=== PATIENT | female | born 1970 | race Caucasian/White ===

== ENCOUNTER 2019-09-19 21:28 | Emergency (ER) | payer OTHER ==
[~2019-09-19] VITALS: Ht 165.1 cm; Wt 111.4 kg
[~2019-09-19 21:28] MED LIST: AMLO10TA4 PO; CARV6.25 PO; IBUP800T19 PO; LISI1TAB23 PO; NITR50IN IV; POTA20TA4 PO; RANI-376 PO
[2019-09-19] MEDS ORDERED: IV NORMAL SALINE 1,000ML 1,000 ML IV SCH (21:50)
--- NOTE | 2019-09-19 21:59 | PHYS DOC ---
Past History Past Medical History: CVA, Diabetes, Hypertension Past Surgical History: Tonsillectomy Alcohol Use: None Drug Use: None Adult General Chief Complaint Chief Complaint: DIZZY/LIGHT HEADED HPI HPI Patient is a 49-year-old female who presents with complaint of some dizziness today as well as palpitations. Patient states that she felt like her heart was beating out of her chest and one of the coworkers had checked her pulse and blood pressure and found that her pulse was 168. Blood pressure was also found to be elevated. Patient denies any actual chest pain but does state that it felt uncomfortable. She states that the palpitations have much resolved at this point. She does indicate that she still feels a little bit lightheaded however.[] Review of Systems Review of Systems Constitutional: Denies fever or chills [] Respiratory: Admits to cough without shortness of breath [] Cardiovascular: No additional information not addressed in HPI [] GI: Denies abdominal pain, nausea, vomiting or diarrhea [] Integument: Denies rash or skin lesions [] Neurologic: Denies headache, focal weakness or sensory changes [] All other systems were reviewed and found to be within normal limits, except as documented in this note. Current Medications Current Medications Current Medications Medications (Trade) Dose Ordered Sig/Javier Start Time Stop Time Status Last Admin Dose Admin Albuterol/ Ipratropium (Duoneb) 3 ml 1X ONCE 09/19/19 22:00 09/19/19 22:01 UNV Sodium Chloride 1,000 ml @ 1,000 mls/hr Q1H 09/19/19 21:50 09/19/19 22:49 UNV Allergies Allergies Allergies Coded Allergies Type Severity Reaction Last Updated Verified lisinopril Allergy Intermediate rash 08/20/16 Yes Physical Exam Physical Exam Constitutional: Well developed, well nourished, no acute distress, non-toxic appearance. [] HENT: Normocephalic, atraumatic, bilateral external ears normal, oropharynx moist, no oral exudates, nose normal. [] Eyes: PERRLA, EOMI, conjunctiva normal, no discharge. [] Neck: Normal range of motion, no tenderness, supple. [] Cardiovascular: Regular rate and rhythm[] Lungs & Thorax: Bilateral breath sounds clear to auscultation [] Abdomen: Bowel sounds normal, soft, no tenderness. [] Skin: Warm, dry, no erythema, no rash. [] Extremities: No tenderness, no cyanosis, no clubbing, ROM intact. [] Neurologic: Alert and oriented X 3, no focal deficits noted. [] Current Patient Data Vital Signs Vital Signs Date Time Temp Pulse Resp B/P (MAP) Pulse Ox O2 Delivery O2 Flow Rate FiO2 09/19/19 21:42 98.2 110 20 166/98 (120) 97 Room Air EKG EKG EKG demonstrates normal sinus rhythm with rate of 98.[] Radiology/Procedures Radiology/Procedures [] Impressions: PROCEDURE: PORTABLE CHEST 1V EXAM: CHEST 1 VIEW History: Palpitations, cough COMPARISON: 07/10/2015 TECHNIQUE: Single portable radiograph of the chest FINDINGS: The cardiac silhouette is unremarkable. The lungs are clear bilaterally. The costophrenic sulci are clear and well demarcated. IMPRESSION: No radiographic evidence of an acute cardiopulmonary process. Electronically signed by: Blaine Dorsey MD (09/19/2019 10:35 PM) [facility] Course & Med Decision Making Course & Med Decision Making Pertinent Labs and Imaging studies reviewed. (See chart for details) [] Dragon Disclaimer Dragon Disclaimer This electronic medical record was generated, in whole or in part, using a voice recognition dictation system. Departure Departure: Impression: Primary Impression: Dizziness Additional Impression: Hypomagnesemia Disposition: 01 HOME, SELF-CARE Condition: STABLE Referrals: ANGELIQUE PETERSON MD (PCP) Patient Instructions: Dizziness, Hypomagnesemia Problem Qualifiers JOHN PATTERSON Jr. DO Sep 19, 2019 21:59
[2019-09-19] MEDS ORDERED: IPRATRPIUM/ALBUTEROL 0.5/2.5MG 3 ML NEBU. NEB ONE (22:00)
[2019-09-19 22:18] LABS: BASO # 0.1 x10^3/uL (0.0-0.2); BASO % 1 % (0-3); EOS # 0.1 x10^3/uL (0.0-0.7); EOS % 1 % (0-3); HEMATOCRIT 47.4 % (36.0-47.0); HEMOGLOBIN 15.7 g/dL (12.0-15.5); LYMPH # 2.1 x10^3/uL (1.0-4.8); LYMPH % 20 % (24-48); MEAN CORPUSCULAR HEMOGLOBIN 32 pg (25-35); MEAN CORPUSCULAR HGB CONC 33 g/dL (31-37); MEAN CORPUSCULAR VOLUME 96 fL (79-100); MONO # 0.5 x10^3/uL (0.0-1.1); MONO % 5 % (0-9); NEUT # 7.5 x10^3uL (1.8-7.7); NEUT % 72 % (31-73); PLATELET COUNT 243 x10^3/uL (140-400); RED BLOOD COUNT 4.97 x10^6/uL (3.50-5.40); RED CELL DISTRIBUTION WIDTH 13.6 % (11.5-14.5); WHITE BLOOD COUNT 10.3 x10^3/uL (4.0-11.0)
[2019-09-19 22:24] LABS: CALCIUM 8.5 mg/dL (8.5-10.1); CREATININE 0.7 mg/dL (0.6-1.0); GFR 88.9; POTASSIUM 3.6 mmol/L (3.5-5.1)
[2019-09-19 22:36] LABS: ALBUMIN 3.4 g/dL (3.4-5.0); ALBUMIN/GLOBULIN RATIO 0.9 (1.0-1.7); MAGNESIUM 1.5 mg/dL (1.8-2.4); TOTAL BILIRUBIN 0.3 mg/dL (0.2-1.0); TOTAL PROTEIN 7.2 g/dL (6.4-8.2)
--- NOTE | 2019-09-19 22:38 | RAD ---
EXAM: CHEST 1 VIEW History: Palpitations, cough COMPARISON: 07/10/2015 TECHNIQUE: Single portable radiograph of the chest FINDINGS: The cardiac silhouette is unremarkable. The lungs are clear bilaterally. The costophrenic sulci are clear and well demarcated. IMPRESSION: No radiographic evidence of an acute cardiopulmonary process. Electronically signed by: Blaine Dorsey MD (09/19/2019 10:35 PM) [facility]
[2019-09-19] MEDS ORDERED: MAGNESIUM SULFATE 1GM 100 ML IV ONE (23:00)
[2019-09-19] MEDS ORDERED: MAGNESIUM OXIDE 400 MG TABLET PO ONE (23:30)
[2019-09-19 23:44] VITALS: BP 154/91
--- NOTE | 2019-09-21 18:31 | EKG ---
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
== END 2019-09-19 23:47 | disposition home or self-care (01) ==
LOC: ER 21:28
DX: R42 Dizziness and giddiness (principal); E83.42 Hypomagnesemia; I10 Essential (primary) hypertension; E11.9 Type 2 diabetes mellitus without complications; Z86.73 Personal history of transient ischemic attack (TIA), and cerebral infarction without residual deficits; Z88.8 Allergy status to other drugs, medicaments and biological substances
CPT/HCPCS: 36415; 71045; 80053; 83735; 83880; 84484; 85025; 93005; 94640; 96360; 96361; 99285; J7620; J7030

== ENCOUNTER 2019-10-24 18:21 | Emergency (ER) | payer OTHER ==
[~2019-10-24] VITALS: Ht 165.1 cm; Wt 110.7 kg
[2019-10-24] MEDS ORDERED: IPRATRPIUM/ALBUTEROL 0.5/2.5MG 3 ML NEBU. NEB ONE (20:00)
[2019-10-24] MEDS ORDERED: methylPREDNISolone SOD SUCC PF 125 MG/2 ML VIAL. IV ONE (20:00)
--- NOTE | 2019-10-24 20:01 | RAD ---
Exam: Chest 2 views INDICATION: Congestion, cough TECHNIQUE: Frontal and lateral views the chest Comparisons: 09/19/2019 FINDINGS: The cardiomediastinal silhouette and pulmonary vessels are within normal limits. The lung and pleural spaces are clear. IMPRESSION: No acute cardiopulmonary process. Electronically signed by: Miguel Herbert MD (10/24/2019 7:58 PM) [id number]
[2019-10-24] MEDS ORDERED: IV NORMAL SALINE 50ML 50 ML ONE (20:11)
[2019-10-24] MEDS ORDERED: cefTRIAXone SODIUM 1 GM VIAL ONE (20:12)
[2019-10-24 20:33] LABS: INFLUENZA A PATIENT NEGATIVE (NEGATIVE); INFLUENZA B PATIENT NEGATIVE (NEGATIVE)
[2019-10-24 20:34] LABS: BASO # 0.2 x10^3/uL (0.0-0.2); BASO % 2 % (0-3); EOS # 0.3 x10^3/uL (0.0-0.7); EOS % 4 % (0-3); HEMATOCRIT 45.7 % (36.0-47.0); HEMOGLOBIN 15.1 g/dL (12.0-15.5); LYMPH # 2.4 x10^3/uL (1.0-4.8); LYMPH % 24 % (24-48); MEAN CORPUSCULAR HEMOGLOBIN 32 pg (25-35); MEAN CORPUSCULAR HGB CONC 33 g/dL (31-37); MEAN CORPUSCULAR VOLUME 96 fL (79-100); MONO # 0.5 x10^3/uL (0.0-1.1); MONO % 5 % (0-9); NEUT # 6.6 x10^3uL (1.8-7.7); NEUT % 66 % (31-73); PLATELET COUNT 226 x10^3/uL (140-400); RED BLOOD COUNT 4.75 x10^6/uL (3.50-5.40); RED CELL DISTRIBUTION WIDTH 13.6 % (11.5-14.5); WHITE BLOOD COUNT 10.1 x10^3/uL (4.0-11.0)
[2019-10-24 20:44] LABS: CALCIUM 8.5 mg/dL (8.5-10.1); CREATININE 0.5 mg/dL (0.6-1.0); GFR 131.1; POTASSIUM 3.5 mmol/L (3.5-5.1)
[2019-10-24 20:50] LABS: ALBUMIN 3.1 g/dL (3.4-5.0); ALBUMIN/GLOBULIN RATIO 0.8 (1.0-1.7); MAGNESIUM 1.6 mg/dL (1.8-2.4); TOTAL BILIRUBIN 0.1 mg/dL (0.2-1.0)
[2019-10-24 22:00] VITALS: BP 138/76
[2019-10-24] MEDS ORDERED: MAGNESIUM SULFATE 2GM 50 ML IV ONE (22:00)
[2019-10-24] MEDS ORDERED: AZIT250T PO (22:16)
[2019-10-24] MEDS ORDERED: ALBU2.5V8 INH (22:16)
[2019-10-24] MEDS ORDERED: PRED20TA PO (22:16)
--- NOTE | 2019-10-24 22:17 | PHYS DOC ---
Past History Past Medical History: Asthma, CHF, COPD, CVA, Diabetes, Hypertension Additional Past Medical Histor: neuropathy Past Surgical History: Tonsillectomy Alcohol Use: Occasionally Drug Use: None Adult General Chief Complaint Chief Complaint: COUGH HPI HPI Patient is a 49-year-old female who presented to ER today for evaluation of cough, nasal congestion for about 4 days. Patient says she had been coughing so much that she could not sleep at home. Patient denies any productive sputum. Patient complaint of facial pain with nasal congestion. Patient denies any headache. Patient has history of COPD, she also complaint of trouble breathing and wheezing. Patient denies any chest pain. Patient denies any abdominal pain, no nausea vomiting. SHe felt like she has a fever, but did not check her temperature. Review of Systems Review of Systems Constitutional: Positive for fever and chills [] Eyes: Denies change in visual acuity, redness, or eye pain [] HENT: Denies nasal congestion or sore throat [] Respiratory: Positive for cough and shortness of breath [] Cardiovascular: No additional information not addressed in HPI [] GI: Denies abdominal pain, nausea, vomiting, bloody stools or diarrhea [] : Denies dysuria or hematuria [] Musculoskeletal: Denies back pain or joint pain [] Integument: Denies rash or skin lesions [] Neurologic: Denies headache, focal weakness or sensory changes [] Endocrine: Denies polyuria or polydipsia [] All other systems were reviewed and found to be within normal limits, except as documented in this note. Current Medications Current Medications Current Medications Medications (Trade) Dose Ordered Sig/[facility] Start Time Stop Time Status Last Admin Dose Admin Albuterol/ Ipratropium (Duoneb) 3 ml 1X ONCE 10/24/19 20:00 10/24/19 20:08 DC 10/24/19 20:21 3 ML Ceftriaxone Sodium 1 gm/ Sodium Chloride 50 ml @ 100 mls/hr 1X ONCE 10/24/19 20:00 10/24/19 20:29 DC 10/24/19 20:28 100 MLS/HR Ceftriaxone Sodium (Rocephin) 1 gm STK-MED ONCE 10/24/19 20:12 10/24/19 20:12 DC Magnesium Sulfate 50 ml @ 25 mls/hr 1X ONCE 10/24/19 22:00 10/24/19 23:59 10/24/19 21:54 25 MLS/HR Methylprednisolone Sodium Succinate (SOLU-Medrol 125MG VIAL) 125 mg 1X ONCE 10/24/19 20:00 10/24/19 20:08 DC 10/24/19 20:28 125 MG Sodium Chloride 50 ml @ As Directed STK-MED ONCE 10/24/19 20:11 10/24/19 20:12 DC Allergies Allergies Allergies Coded Allergies Type Severity Reaction Last Updated Verified lisinopril Allergy Intermediate rash 08/20/16 Yes Physical Exam Physical Exam Constitutional: Well developed, well nourished, no acute distress, non-toxic appearance. [] HENT: Normocephalic, atraumatic, bilateral external ears normal, oropharynx moist, no oral exudates, nose normal. [] Eyes: PERRLA, EOMI, conjunctiva normal, no discharge. [] Neck: Normal range of motion, no tenderness, supple, no stridor. [] Cardiovascular:Heart rate regular rhythm, no murmur [] Lungs & Thorax: Bilateral breath sounds clear to auscultation [] Abdomen: Bowel sounds normal, soft, no tenderness, no masses, no pulsatile masses. [] Skin: Warm, dry, no erythema, no rash. [] Back: No tenderness, no CVA tenderness. [] Extremities: No tenderness, no cyanosis, no clubbing, ROM intact, no edema. [] Neurologic: Alert and oriented X 3, normal motor function, normal sensory function, no focal deficits noted. [] Psychologic: Affect normal, judgement normal, mood normal. [] Current Patient Data Vital Signs Vital Signs Date Time Temp Pulse Resp B/P (MAP) Pulse Ox O2 Delivery O2 Flow Rate FiO2 10/24/19 20:22 94 Room Air 10/24/19 18:38 97.9 113 26 119/45 (69) Lab Results Laboratory Tests Test 10/24/19 18:57 10/24/19 20:18 Influenza Type A (Rapid) Negative (NEGATIVE) Influenza Type B (Rapid) Negative (NEGATIVE) White Blood Count 10.1 x10^3/uL (4.0-11.0) Red Blood Count 4.75 x10^6/uL (3.50-5.40) Hemoglobin 15.1 g/dL (12.0-15.5) Hematocrit 45.7 % (36.0-47.0) Mean Corpuscular Volume 96 fL (79-100) Mean Corpuscular Hemoglobin 32 pg (25-35) Mean Corpuscular Hemoglobin Concent 33 g/dL (31-37) Red Cell Distribution Width 13.6 % (11.5-14.5) Platelet Count 226 x10^3/uL (140-400) Neutrophils (%) (Auto) 66 % (31-73) Lymphocytes (%) (Auto) 24 % (24-48) Monocytes (%) (Auto) 5 % (0-9) Eosinophils (%) (Auto) 4 % (0-3) H Basophils (%) (Auto) 2 % (0-3) Neutrophils # (Auto) 6.6 x10^3uL (1.8-7.7) Lymphocytes # (Auto) 2.4 x10^3/uL (1.0-4.8) Monocytes # (Auto) 0.5 x10^3/uL (0.0-1.1) Eosinophils # (Auto) 0.3 x10^3/uL (0.0-0.7) Basophils # (Auto) 0.2 x10^3/uL (0.0-0.2) Sodium Level 141 mmol/L (136-145) Potassium Level 3.5 mmol/L (3.5-5.1) Chloride Level 104 mmol/L (98-107) Carbon Dioxide Level 24 mmol/L (21-32) Anion Gap 13 (6-14) Blood Urea Nitrogen 8 mg/dL (7-20) Creatinine 0.5 mg/dL (0.6-1.0) L Estimated GFR (Cockcroft-Gault) 131.1 BUN/Creatinine Ratio 16 (6-20) Glucose Level 181 mg/dL (70-99) H Calcium Level 8.5 mg/dL (8.5-10.1) Magnesium Level 1.6 mg/dL (1.8-2.4) L Total Bilirubin 0.1 mg/dL (0.2-1.0) L Aspartate Amino Transferase (AST) 36 U/L (15-37) Alanine Aminotransferase (ALT) 35 U/L (14-59) Alkaline Phosphatase 98 U/L (46-116) Total Protein 7.0 g/dL (6.4-8.2) Albumin 3.1 g/dL (3.4-5.0) L Albumin/Globulin Ratio 0.8 (1.0-1.7) L EKG EKG [] Radiology/Procedures Radiology/Procedures [][address] [address] IMAGING REPORT Signed PATIENT: OLIVER PEARSON AACCOUNT: [id number] : 1970 LOCATION: ER AGE: 49 SEX: F EXAM STATUS: REG ER ORD. PHYSICIAN: ANGELIQUE JUÁREZ DO REASON: Congestion, cough, chest discomfort PROCEDURE: CHEST PA & LATERAL Exam: Chest 2 views INDICATION: Congestion, cough TECHNIQUE: Frontal and lateral views the chest Comparisons: 09/19/2019 FINDINGS: The cardiomediastinal silhouette and pulmonary vessels are within normal limits. The lung and pleural spaces are clear. IMPRESSION: No acute cardiopulmonary process. Electronically signed by: Addi Becerra MD (10/24/2019 7:58 PM) [id number] DICTATED AND SIGNED BY: ADDI BECERRA MD DATE: 10/24/191957 CC: ANGELIQUE PETERSON MD; ANGELIQUE JUÁREZ DO ~ Course & Med Decision Making Course & Med Decision Making Pertinent Labs and Imaging studies reviewed. (See chart for details) [] Dragon Disclaimer Dragon Disclaimer This electronic medical record was generated, in whole or in part, using a voice recognition dictation system. Departure Departure: Impression: Primary Impression: Acute bronchitis Disposition: 01 HOME, SELF-CARE Condition: STABLE Referrals: ANGELIQUE PETERSON MD (PCP) FOLLOW UP WITH YOUR DOCTOR THIS WEEK. Patient Instructions: Acute Bronchitis Additional Instructions: Thank you for visiting our Emergency Department. We appreciate you trusting us with your care. If any additional problems come up don't hesitate to return to visit us. Please follow up with your primary care provider so they can plan additional care if needed and know about the problem that you had. If symptoms worsen come back to the Emergency Department. Any concerning symptoms that start such as chest pain, shortness of air, weakness or numbness on one side of the body, running high fevers or any other concerning symptoms return to the ER. Scripts Albuterol Sulfate (PROAIR HFA INHALER) 8.5 Gm Hfa.aer.ad 1 PUFF INH PRN Q6HRS PRN for SHORTNESS OF BREATH, #1 INHALER 0 Refills Prov: ANGELIQUE JUÁREZ DO 10/24/19 Prednisone (PREDNISONE) 20 Mg Tablet 1 TAB PO DAILY for BRONCHITIS, #7 TAB Prov: ANGELIQUE JUÁREZ DO 10/24/19 Azithromycin (ZITHROMAX) 250 Mg Tablet 1 PKG PO UD for BRONCHITIS, #6 TAB Prov: ANGELIQUE JUÁREZ DO 10/24/19 ANGELIQUE JUÁREZ DO Oct 24, 2019 22:17
== END 2019-10-24 22:20 | disposition home or self-care (01) ==
LOC: ER 18:21
DX: J20.9 Acute bronchitis, unspecified (principal); I11.0 Hypertensive heart disease with heart failure; I50.9 Heart failure, unspecified; J44.9 Chronic obstructive pulmonary disease, unspecified; E11.40 Type 2 diabetes mellitus with diabetic neuropathy, unspecified; Z86.73 Personal history of transient ischemic attack (TIA), and cerebral infarction without residual deficits; Z88.8 Allergy status to other drugs, medicaments and biological substances
CPT/HCPCS: 36415; 71046; 80053; 83735; 85025; 87804; 94640; 96365; 96367; 96375; 99284; J0696; J2930; J3475

== ENCOUNTER 2019-10-25 19:13 | Inpatient (IN) | payer OTHER ==
[~2019-10-25] VITALS: Ht 165.1 cm; Wt 111.9 kg
[~2019-10-25 19:13] MED LIST changes: +ALBU2.5V8 INH; +AZIT250T PO; +PRED20TA PO
[2019-10-25 19:43] VITALS: BP 122/67
[2019-10-25 20:30] VITALS: BP 122/67
[2019-10-25] MEDS ORDERED: ZOLPIDEM 5 MG TABLET. PO PRN (21:15)
[2019-10-25] MEDS ORDERED: MAG HYDROX/AL HYDROX/SIMETH 30 ML ORAL.SUSP PO PRN (21:15)
[2019-10-25] MEDS: IPRATRPIUM/ALBUTEROL 0.5/2.5MG 3 ML NEBU. NEB SCH (21:21)
[2019-10-25] MEDS ORDERED: DEXTROSE 50% 25 GM / 50ML DISP.SYRIN. IV PRN (21:45)
[2019-10-25 21:57] LABS: BASO % 0 % (0-3); EOS % 0 % (0-3); HEMOGLOBIN 14.1 g/dL (12.0-15.5); LYMPH # 1.3 x10^3/uL (1.0-4.8); LYMPH % 8 % (24-48); MEAN CORPUSCULAR HEMOGLOBIN 32 pg (25-35); MEAN CORPUSCULAR HGB CONC 33 g/dL (31-37); MEAN CORPUSCULAR VOLUME 97 fL (79-100); MONO # 0.8 x10^3/uL (0.0-1.1); MONO % 5 % (0-9); NEUT # 13.2 x10^3uL (1.8-7.7); NEUT % 86 % (31-73); PLATELET COUNT 260 x10^3/uL (140-400); RED BLOOD COUNT 4.42 x10^6/uL (3.50-5.40); WHITE BLOOD COUNT 15.4 x10^3/uL (4.0-11.0)
[2019-10-25] MEDS ORDERED: INSULIN LISPRO 300 UNITS/3 ML VIAL. SQ SCH (22:00)
[2019-10-25 22:06] LABS: ALBUMIN 3.2 g/dL (3.4-5.0); ALBUMIN/GLOBULIN RATIO 0.8 (1.0-1.7); CALCIUM 8.7 mg/dL (8.5-10.1); CREATININE 0.7 mg/dL (0.6-1.0); GFR 88.9; POTASSIUM 4.3 mmol/L (3.5-5.1); TOTAL BILIRUBIN 0.1 mg/dL (0.2-1.0)
[2019-10-25] MEDS: NICOTINE 21MG PATCH. TD SCH (22:11)
[2019-10-25] MEDS: ACETAMINOPHEN 325 MG TABLET PO PRN (22:18)
[2019-10-25 22:21] LABS: % LYMPHS 7 % (24-48); % MONOS 5 % (0-10); % SEGS 88 % (35-66); ANISOCYTOSIS SLIGHT; PLT ESTIMATE ADEQUATE (ADEQUATE); POLYCHROMASIA SLIGHT
[2019-10-25] MEDS ORDERED: ALBUTEROL SULFATE 2.5 MG/3 ML NEBU. INH PRN (22:45)
[2019-10-25] MEDS ORDERED: ALBUTEROL SULFATE 2.5 MG/3 ML NEBU. NEB PRN (23:00)
--- NOTE | 2019-10-25 23:22 | EKG ---
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
[2019-10-26] VITALS (9 sets, daily range): BP systolic 108–155; BP diastolic 67–84
[2019-10-26] MEDS: IPRATRPIUM/ALBUTEROL 0.5/2.5MG 3 ML NEBU. NEB SCH ×4 (05:41→22:41)
[2019-10-26 06:35] LABS: AMPHETAMINE/METHAMPHETAMINE NEG (NEG); BARBITURATES NEG (NEG); BENZODIAZEPINES NEG (NEG); CANNABINOIDS NEG (NEG); COCAINE NEG (NEG); METHADONE NEG (NEG); OPIATES NEG (NEG); PHENCYCLIDINE NEG (NEG)
[2019-10-26] MEDS ORDERED: IOHEXOL 350 MG/ML 100 ML VIAL. IV ONE (07:15)
[2019-10-26] MEDS ORDERED: CONTRAST GIVEN MC PRN (07:30)
[2019-10-26 08:21] LABS: BACTERIA,URINE FEW /HPF (0-FEW); BILIRUBIN,URINE NEG (NEG); CLARITY,URINE CLOUDY; COLOR,URINE YELLOW; GLUCOSE,URINE >=1000 mg/dL (NEG); NITRITE,URINE NEG (NEG); RBC,URINE >40 /HPF (0-2); UROBILINOGEN,URINE 0.2 mg/dL (0.2 mg/dL)
[2019-10-26 08:22] LABS: SQUAMOUS EPITHELIAL CELL,UR FEW /LPF
[2019-10-26] MEDS: predniSONE 20 MG TABLET PO SCH (08:29)
[2019-10-26] MEDS: FAMOTIDINE 20 MG TABLET PO SCH ×2 (08:29→19:54)
[2019-10-26] MEDS: CARVEDILOL 12.5 MG TABLET PO SCH ×2 (08:29→17:00)
[2019-10-26] MEDS: AZITHROMYCIN 250 MG TABLET. PO SCH (08:30)
[2019-10-26] MEDS: hydroCHLOROthiazide 12.5 MG CAPSULE PO SCH (08:30)
[2019-10-26] MEDS: NICOTINE 21MG PATCH. TD SCH (08:30)
[2019-10-26] MEDS: POTASSIUM CHLORIDE 20 MEQ TABLET.ER. PO SCH (08:30)
[2019-10-26] MEDS: amLODIPine BESYLATE 10 MG TABLET PO SCH (08:33)
[2019-10-26] MEDS: INSULIN LISPRO 300 UNITS/3 ML VIAL. SQ SCH ×4 (08:33→21:58)
[2019-10-26] MEDS: LISINOPRIL 10 MG TABLET PO SCH (08:33)
--- NOTE | 2019-10-26 09:07 | RAD ---
CT Angio chest 10/26/2019 5:00 AM Indication: Respiratory distress Technique: Multiple contiguous axial images were obtained through the chest after administration of intravenous iodinated contrast. Coronal, sagittal, and 3-D MIP reformations were created. Comparison: Chest radiograph October 24, 2019 Findings: There is no filling defect within central pulmonary arteries or evidence of acute pulmonary embolism. Heart size is normal. No pericardial effusion is appreciated. No pathologically enlarged mediastinal lymph nodes are seen. . The thoracic aorta is grossly normal in course and contour. There is no pneumothorax or pleural effusion. There are mild patchy groundglass infiltrates, most prominently in the left upper lobe, but also to a lesser degree in the right upper lobe. This could represent a mild or atypical, versus nonspecific pneumonitis. Limited visualization of the upper abdomen demonstrates no acute abnormality. No acute osseous abnormalities are appreciated. Impression: 1.No evidence of acute pulmonary embolism 2 .Mild patchy groundglass infiltrates, most prominently in the left upper lobe, but also to a lesser degree in the right upper lobe. This could represent a mild or atypical, versus nonspecific pneumonitis CT DOSING PQRS STATEMENT: One or more of the following individualized dose reduction techniques were utilized for this examination: 1. Automated exposure control 2. Adjustment of the mA and/or kV according to patient size 3. Use of iterative reconstruction technique Electronically signed by: Andrew Tomas MD (10/26/2019 9:04 AM) [place] [address]
[2019-10-26] MEDS ORDERED: SODIUM CHL/ALOE VERA NASAL GEL 14.1GM TUBE. NS PRN (09:45)
[2019-10-26] MEDS ORDERED: PIP/TAZO PER PHARMACY MC PRN (09:45)
[2019-10-26] MEDS ORDERED: IV 1/2 NORMAL SALINE 1,000 ML IV PRN (10:00)
[2019-10-26] MEDS ORDERED: MVI, ADULT NO.4 WITH VIT K 10 ML, FOLIC ACID INJ 1 MG, THIAMINE INJ 100 MG in IV NORMAL... IV ONE ×4 (10:00)
[2019-10-26 10:17] LABS: BASO # 0.1 x10^3/uL (0.0-0.2); BASO % 1 % (0-3); EOS % 0 % (0-3); HEMATOCRIT 43.1 % (36.0-47.0); HEMOGLOBIN 14.1 g/dL (12.0-15.5); LYMPH # 2.2 x10^3/uL (1.0-4.8); LYMPH % 16 % (24-48); MEAN CORPUSCULAR HEMOGLOBIN 32 pg (25-35); MEAN CORPUSCULAR HGB CONC 33 g/dL (31-37); MEAN CORPUSCULAR VOLUME 96 fL (79-100); MONO # 0.9 x10^3/uL (0.0-1.1); MONO % 6 % (0-9); NEUT # 10.8 x10^3uL (1.8-7.7); NEUT % 77 % (31-73); PLATELET COUNT 234 x10^3/uL (140-400); RED BLOOD COUNT 4.48 x10^6/uL (3.50-5.40); RED CELL DISTRIBUTION WIDTH 13.6 % (11.5-14.5)
[2019-10-26 10:21] LABS: CREATININE 0.7 mg/dL (0.6-1.0); GFR 88.9
--- NOTE | 2019-10-26 10:56 | HP ---
ADMIT DATE: 10/25/2019 HISTORY OF PRESENT ILLNESS: A 49-year-old female, increased shortness of breath, respiratory failure, and hemoptysis. The patient was noted to be coughing up blood. She was admitted to the hospital. She had increased shortness of breath and wheezing throughout. She became increasingly worse over the last week or two and making further challenges to her breathing. She was using some accessory muscles as well. She had an elevated white count of 15,000. She had already been to the Emergency Room one time and apparently was sent home. In any case, the patient was admitted for acute respiratory failure; pneumonia of unspecified etiology; type 2 diabetes, poorly controlled; morbid obesity; hematuria and epistaxis. PAST MEDICAL HISTORY: Includes that of congestive heart failure, hypertension, COPD, sleep apnea, GERD, hematuria, urination urgency. IMMUNIZATION: Tetanus and vaccinations are up-to-date. 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 FAMILY HISTORY: Obesity, hypertension, diabetes, depression, cardiovascular disease, angina, and sleep apnea. ALLERGIES: The patient has no known allergies herself. SOCIAL HISTORY: Apparently does drink fairly heavily from time to time and occasional smoking probably about a half pack a day. MEDICATIONS: The patient's medications. She has already been on azithromycin, ProAir inhaler, Coreg, amlodipine 10, lisinopril/HCTZ, ibuprofen 800, potassium chloride, ranitidine 115, prednisone 20. REVIEW OF SYSTEMS: As noted, the patient has marked flushing to the face. She has increased shortness of breath, increased pain within the chest itself in terms of breathing. She has difficulty getting her air. The patient otherwise notes she has had some blood in her urine and epistaxis as well as coughing up blood. The patient also had some nausea and vomiting. The patient has diffuse abdominal pain and left flank pain. The patient otherwise denies any melena, hematochezia, hematemesis except as otherwise noted above. Neurologically baseline. PHYSICAL EXAMINATION: GENERAL: This is a very pleasant white female looking very ill, morbidly obese. VITAL SIGNS: Blood pressure 120/70, respiratory rate 20, pulse 120, afebrile, room air 91%, desaturates down in the low 80s when moving, however. HEENT: The patient's head was atraumatic, normocephalic except for a markedly sheridan appearance throughout almost like carbon monoxide javier like coloring to the face. The patient's mouth and throat shows some blood down the back of the throat. NECK: Supple without JVD, carotid bruits or thyromegaly. LUNGS: Diminished throughout with wheezing in all 5 lobes, poor movement of air. CARDIOVASCULAR: Tachycardic. ABDOMEN: Soft, protuberant. Definite tenderness in the left lower quadrant area, but no rebounding, no guarding. GENITOURINARY: Normal female genitalia. EXTREMITIES: Without clubbing, cyanosis, nor edema. NEUROLOGIC: The patient is alert and oriented x 3. Speech fluent, spontaneous, appropriate. Cranial nerves 2-12 are grossly intact. EKG shows sinus tachycardia, rate of 115, T-wave abnormalities no longer evident. A CT of the chest shows ground glass infiltrates in the left upper, also right upper lobe, possible atypical pneumonia versus nonspecific pneumonitis. The patient otherwise showed no pulmonary emboli to recognize that sinus tachycardia. LABORATORY DATA: White count was 15,000, no left shift. Lactic acid is pending. Blood sugar 360. Coags stable. Positive for alcohol. Urine shows spilling ___ glucose and greater than 40 rbc's, 5-10 whites. 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 IMPRESSION: Acute respiratory failure, severe type 2 diabetes, poorly controlled; morbid obesity, pneumonia of unspecified etiology in two lobes, acute exacerbation of asthma, history of alcohol abuse, dehydration, epistaxis, nausea, vomiting. 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 We will get an echocardiogram, check her thyroid. EKG just shows a some straight sinus tachycardia, otherwise the patient is acutely ill and requires IV fluids, antibiotics and aggressive pulmonary toilet. It is noted she failed outpatient therapy. She had been to the Emergency Room and was discharged. It got progressively worse. ANGELIQUE PETERSON MD DR: MANINDER/mona JOB#: [id number] / [id number]
--- NOTE | 2019-10-26 11:00 | RAD ---
PQRS Compliance Statement: One or more of the following individualized dose reduction techniques were utilized for this examination: 1. Automated exposure control 2. Adjustment of the mA and/or kV according to patient size 3. Use of iterative reconstruction technique CT ABDOMEN PELVIS WO CONTRAST Clinical Indication: Hematuria. Comparison: CT chest with contrast, earlier same day. Technique: Helical CT imaging of the abdomen and pelvis is performed without IV or oral contrast. Findings: Evaluation of solid organs and bowel is limited without oral and IV contrast, decreasing sensitivity for detection of pathology. Minimal atelectasis or scarring in the right middle lobe and inferior lingula. Cardiac size normal. Hepatomegaly. Gallbladder, spleen, pancreas, adrenal glands, and abdominal aorta are normal. There is IV contrast in the collecting system and urinary bladder from earlier same day CT. This decreases sensitivity for detection of renal calculi. There is no hydronephrosis. No focal abnormality of the ureters is seen. Stomach unremarkable. No dilated small bowel. There is distal colon diverticulosis. No colon wall thickening is seen. The appendix is normal. No abdominal adenopathy or free fluid. There is no pelvic free fluid. Urinary bladder is normal. Anteverted uterus. There is small amount of hyperdense material or fluid in the vagina. This hyperdense material is similar in density to the intravenous contrast in the urinary bladder. Degenerative spondylosis of L5/S1. Left osteitis condensans ilii. IMPRESSION: 1. No CT explanation for patient's hematuria. There is no hydronephrosis. The urinary bladder is normal. 2. There is IV contrast in the collecting system and urinary bladder from earlier same day CT. There is hyperdense material or fluid in the vagina. Recommend correlation to whether this could be due to urinary contamination or unrelated hyperdense material. If no plausible explanation, a vesicovaginal fistula cannot be excluded. 3. Hepatomegaly. 4. Distal colon diverticulosis. Electronically signed by: Bert Tang MD (10/26/2019 10:58 AM) [id number]
[2019-10-26] MEDS: PIPERACILLIN/TAZOBACTAM 4.5 GM in IV NORMAL SALINE 50ML 50 ML IV SCH ×2 (11:25→17:44)
[2019-10-26] MEDS ORDERED: VANCOMYCIN 2 GM in IV NORMAL SALINE 500ML 500 ML IV ONE (11:30)
[2019-10-26] MEDS: ACETAMINOPHEN 325 MG TABLET PO PRN (11:30)
[2019-10-26] MEDS: VANCOMYCIN PER PHARMACY MC PRN (12:25)
[2019-10-26 15:37] LABS: INFLUENZA A PATIENT NEGATIVE (NEGATIVE); INFLUENZA B PATIENT NEGATIVE (NEGATIVE)
[2019-10-26] MEDS: ZOLPIDEM 5 MG TABLET. PO PRN (19:54)
[2019-10-26] MEDS: VANCOMYCIN 1.5 GM in IV NORMAL SALINE 500ML 500 ML IV SCH (19:54)
[2019-10-26] MEDS ORDERED: INSULIN LISPRO 300 UNITS/3 ML VIAL. SQ SCH (21:45)
[2019-10-27] MEDS: PIPERACILLIN/TAZOBACTAM 4.5 GM in IV NORMAL SALINE 50ML 50 ML IV SCH ×3 (01:54→18:45)
[2019-10-27] MEDS: VANCOMYCIN 1.5 GM in IV NORMAL SALINE 500ML 500 ML IV SCH ×3 (04:11→21:02)
[2019-10-27 05:26] VITALS: BP 154/88
[2019-10-27] MEDS: IPRATRPIUM/ALBUTEROL 0.5/2.5MG 3 ML NEBU. NEB SCH ×4 (05:29→21:01)
[2019-10-27 06:00] LABS: BASO # 0.1 x10^3/uL (0.0-0.2); BASO % 1 % (0-3); EOS # 0.1 x10^3/uL (0.0-0.7); EOS % 1 % (0-3); HEMATOCRIT 41.1 % (36.0-47.0); HEMOGLOBIN 13.5 g/dL (12.0-15.5); LYMPH # 2.6 x10^3/uL (1.0-4.8); LYMPH % 26 % (24-48); MEAN CORPUSCULAR HEMOGLOBIN 32 pg (25-35); MEAN CORPUSCULAR HGB CONC 33 g/dL (31-37); MEAN CORPUSCULAR VOLUME 97 fL (79-100); MONO # 0.7 x10^3/uL (0.0-1.1); MONO % 7 % (0-9); NEUT # 6.7 x10^3uL (1.8-7.7); NEUT % 66 % (31-73); PLATELET COUNT 200 x10^3/uL (140-400); RED BLOOD COUNT 4.24 x10^6/uL (3.50-5.40); RED CELL DISTRIBUTION WIDTH 13.4 % (11.5-14.5); WHITE BLOOD COUNT 10.1 x10^3/uL (4.0-11.0)
[2019-10-27 06:09] LABS: CALCIUM 8.3 mg/dL (8.5-10.1); CREATININE 0.7 mg/dL (0.6-1.0); GFR 88.9; POTASSIUM 3.8 mmol/L (3.5-5.1)
[2019-10-27] MEDS: hydroCHLOROthiazide 12.5 MG CAPSULE PO SCH (08:26)
[2019-10-27] MEDS: FAMOTIDINE 20 MG TABLET PO SCH ×2 (08:26→21:03)
[2019-10-27] MEDS: LISINOPRIL 10 MG TABLET PO SCH (08:27)
[2019-10-27] MEDS: AZITHROMYCIN 250 MG TABLET. PO SCH (08:27)
[2019-10-27] MEDS: POTASSIUM CHLORIDE 20 MEQ TABLET.ER. PO SCH (08:27)
[2019-10-27] MEDS: predniSONE 20 MG TABLET PO SCH (08:27)
[2019-10-27] MEDS: ACETAMINOPHEN 325 MG TABLET PO PRN ×2 (08:27→18:45)
[2019-10-27] MEDS: CARVEDILOL 12.5 MG TABLET PO SCH ×2 (08:28→18:46)
[2019-10-27] MEDS: amLODIPine BESYLATE 10 MG TABLET PO SCH (08:28)
[2019-10-27] MEDS: NICOTINE 21MG PATCH. TD SCH (08:28)
[2019-10-27] MEDS: INSULIN LISPRO 300 UNITS/3 ML VIAL. SQ SCH ×4 (08:33→21:00)
[2019-10-27] MEDS ORDERED: INSULIN LISPRO 300 UNITS/3 ML VIAL. SQ ONE (09:30)
[2019-10-27] MEDS ORDERED: SODIUM CHL/ALOE VERA NASAL GEL 14.1GM TUBE. NS PRN (09:30)
[2019-10-27] MEDS: guaiFENesin DM 200MG/20MG 10 ML SYRUP PO PRN ×2 (09:53→18:45)
[2019-10-27] MEDS: INSULIN GLARGINE SYRINGE. SQ SCH ×2 (09:58→20:57)
[2019-10-27 11:00] VITALS: BP 118/59
[2019-10-27 11:41] LABS: VANC TR 17.3 mcg/mL (10.0-20.0)
[2019-10-27 14:40] VITALS: BP 108/59
[2019-10-27] MEDS: methylPREDNISolone SOD SUCC PF 40 MG/ML VIAL. IV SCH ×2 (15:04→21:03)
[2019-10-27 20:22] VITALS: BP 135/80
[2019-10-27] MEDS: ATORVASTATIN CALCIUM 20 MG TABLET PO SCH (21:03)
[2019-10-27 22:48] VITALS: BP 119/66
--- NOTE | 2019-10-27 23:14 | PN ---
DATE: SUBJECTIVE: A 49-year-old female in with acute respiratory failure and pneumonia. The patient has been having severe coughing spasms. She also has epistaxis and a tampon has been placed inside her left naris to help see if that will stop the bleeding, which seems to be a problem for this young lady. OBJECTIVE: VITAL SIGNS: Blood pressure 119/60, respiratory rate 20, pulse 70, afebrile. GENERAL: The patient is alert and oriented. LUNGS: Much improved, but still coarse breath sounds throughout with wheezing. CARDIOVASCULAR: Regular sinus rhythm. ABDOMEN: Soft, nontender. EXTREMITIES: No clubbing, cyanosis, nor edema. NEUROLOGIC: Intact. IMPRESSION: Acute respiratory failure, pneumonia of unspecified etiology, along with that of epistaxis, bronchospasm, morbid obesity, type 2 diabetes, exacerbation of asthma, history of alcohol abuse. PLAN: Continue with antibiotics, monitor that nosebleed and continue to be aggressive with her therapy. ANGELIQUE PETERSON MD DR: MANINDER/mona JOB#: [id number] / [id number]
[2019-10-28] MEDS: guaiFENesin DM 200MG/20MG 10 ML SYRUP PO PRN ×2 (03:09→09:28)
[2019-10-28] MEDS: PIPERACILLIN/TAZOBACTAM 4.5 GM in IV NORMAL SALINE 50ML 50 ML IV SCH ×3 (03:28→21:00)
[2019-10-28] MEDS: methylPREDNISolone SOD SUCC PF 40 MG/ML VIAL. IV SCH ×2 (04:59→21:00)
[2019-10-28] MEDS: VANCOMYCIN 1.5 GM in IV NORMAL SALINE 500ML 500 ML IV SCH ×4 (05:00→17:36)
[2019-10-28 05:31] VITALS: BP 163/73
[2019-10-28] MEDS: IPRATRPIUM/ALBUTEROL 0.5/2.5MG 3 ML NEBU. NEB SCH ×4 (05:43→21:58)
[2019-10-28 06:12] LABS: BASO % 0 % (0-3); EOS % 0 % (0-3); HEMATOCRIT 41.5 % (36.0-47.0); HEMOGLOBIN 13.8 g/dL (12.0-15.5); LYMPH % 10 % (24-48); MEAN CORPUSCULAR HEMOGLOBIN 32 pg (25-35); MEAN CORPUSCULAR HGB CONC 33 g/dL (31-37); MEAN CORPUSCULAR VOLUME 95 fL (79-100); MONO # 0.2 x10^3/uL (0.0-1.1); MONO % 2 % (0-9); NEUT # 9.5 x10^3uL (1.8-7.7); NEUT % 88 % (31-73); PLATELET COUNT 195 x10^3/uL (140-400); RED BLOOD COUNT 4.35 x10^6/uL (3.50-5.40); RED CELL DISTRIBUTION WIDTH 13.2 % (11.5-14.5); WHITE BLOOD COUNT 10.7 x10^3/uL (4.0-11.0)
[2019-10-28 06:19] LABS: CALCIUM 8.8 mg/dL (8.5-10.1); CREATININE 0.7 mg/dL (0.6-1.0); GFR 88.9
[2019-10-28] MEDS: predniSONE 20 MG TABLET PO SCH (08:30)
[2019-10-28] MEDS: FAMOTIDINE 20 MG TABLET PO SCH ×2 (08:30→21:00)
[2019-10-28] MEDS: hydroCHLOROthiazide 12.5 MG CAPSULE PO SCH (08:30)
[2019-10-28] MEDS: POTASSIUM CHLORIDE 20 MEQ TABLET.ER. PO SCH (08:30)
[2019-10-28] MEDS: CARVEDILOL 12.5 MG TABLET PO SCH ×2 (08:31→17:09)
[2019-10-28] MEDS: LISINOPRIL 10 MG TABLET PO SCH (08:31)
[2019-10-28] MEDS: amLODIPine BESYLATE 10 MG TABLET PO SCH (08:31)
[2019-10-28] MEDS: NICOTINE 21MG PATCH. TD SCH (08:32)
[2019-10-28] MEDS: INSULIN LISPRO 300 UNITS/3 ML VIAL. SQ SCH ×4 (08:37→21:00)
[2019-10-28] MEDS: INSULIN GLARGINE SYRINGE. SQ SCH ×2 (08:46→21:05)
[2019-10-28 10:44] VITALS: BP 137/75
[2019-10-28] MEDS ORDERED: GABA600T7 PO (11:28)
[2019-10-28] MEDS ORDERED: chlordiazePOXIDE HCL 25 MG CAPSULE PO PRN ×2 (11:45)
[2019-10-28] MEDS ORDERED: LORazepam 1 MG TABLET PO PRN ×4 (11:45)
[2019-10-28 11:46] LABS: VANC TR 28.7 mcg/mL (10.0-20.0)
[2019-10-28] MEDS: LORazepam 1 MG TABLET PO PRN (12:28)
[2019-10-28 15:04] VITALS: BP 134/77
[2019-10-28] MEDS: VANCOMYCIN PER PHARMACY MC PRN (16:42)
[2019-10-28] MEDS ORDERED: diphenhydrAMINE 50 MG/ML VIAL IVP ONE (18:00)
[2019-10-28 19:30] VITALS: BP 119/69
[2019-10-28] MEDS ORDERED: INSULIN LISPRO 300 UNITS/3 ML VIAL. SQ SCH (20:15)
[2019-10-28] MEDS: ZOLPIDEM 5 MG TABLET. PO PRN (21:00)
[2019-10-28] MEDS: ATORVASTATIN CALCIUM 20 MG TABLET PO SCH (21:00)
[2019-10-28] MEDS ORDERED: INSULIN LISPRO 300 UNITS/3 ML VIAL. SQ ONE (21:15)
--- NOTE | 2019-10-28 22:42 | PN ---
DATE: SUBJECTIVE: A 49-year-old female in with pneumonia of unspecified etiology, sepsis, possible alcohol withdrawal, DTs. The patient started on the blood in the urine. CT scan was entirely clear with possible cause. We will go ahead and continue to monitor the patient accordingly. Otherwise, she is somewhat improved, but still wheezing through all 5 lobes. OBJECTIVE: VITAL SIGNS: Blood pressure 134/77, respiratory rate 20, pulse 70, afebrile. GENERAL: The patient is alert and oriented. LUNGS: Show expiratory wheezes like throughout all 5 lobes. CARDIOVASCULAR: Regular sinus rhythm. ABDOMEN: Soft, nontender. EXTREMITIES: The patient is still somewhat flushed. PLAN: We will continue to monitor the patient on these multiple medical issues. Continue with IV antibiotic therapy, aggressive pulmonary toilet. Her white count has come down as well. Her diabetes is under better control as we attempt to increase her long-acting although she is on steroids. We were decreasing that tapering her off that as well. IMPRESSION: Pneumonia of unspecified etiology, acute respiratory failure, pneumonia along with epistaxis that has stopped, bronchospasm, deep breathing treatments, morbid obesity, type 2 diabetes, sliding scale with the insulin, exacerbation of asthma, history of alcohol abuse. ANGELIQUE PETERSON MD DR: MANINDER/mona JOB#: [id number] / [id number]
[2019-10-28 23:17] VITALS: BP 153/88
[2019-10-29] MEDS: VANCOMYCIN 1.5 GM in IV NORMAL SALINE 500ML 500 ML IV SCH ×2 (01:29→11:35)
[2019-10-29] MEDS: PIPERACILLIN/TAZOBACTAM 4.5 GM in IV NORMAL SALINE 50ML 50 ML IV SCH ×3 (04:45→20:52)
[2019-10-29] MEDS: IPRATRPIUM/ALBUTEROL 0.5/2.5MG 3 ML NEBU. NEB SCH ×4 (04:53→21:42)
[2019-10-29] MEDS: guaiFENesin DM 200MG/20MG 10 ML SYRUP PO PRN ×3 (05:29→20:51)
[2019-10-29 05:51] VITALS: BP 154/92
[2019-10-29] MEDS: hydroCHLOROthiazide 12.5 MG CAPSULE PO SCH (08:45)
[2019-10-29] MEDS: LISINOPRIL 10 MG TABLET PO SCH (08:46)
[2019-10-29] MEDS: CARVEDILOL 12.5 MG TABLET PO SCH ×2 (08:46→17:59)
[2019-10-29] MEDS: FAMOTIDINE 20 MG TABLET PO SCH ×2 (08:46→20:51)
[2019-10-29] MEDS: amLODIPine BESYLATE 10 MG TABLET PO SCH (08:46)
[2019-10-29] MEDS: methylPREDNISolone SOD SUCC PF 40 MG/ML VIAL. IV SCH ×2 (08:47→20:50)
[2019-10-29] MEDS: NICOTINE 21MG PATCH. TD SCH (08:47)
[2019-10-29] MEDS: INSULIN LISPRO 300 UNITS/3 ML VIAL. SQ SCH ×4 (08:49→21:03)
[2019-10-29] MEDS: INSULIN GLARGINE SYRINGE. SQ SCH ×2 (08:57→21:04)
[2019-10-29] MEDS: POTASSIUM CHLORIDE 20 MEQ TABLET.ER. PO SCH (08:58)
[2019-10-29 09:01] LABS: BASO % 0 % (0-3); EOS % 0 % (0-3); HEMATOCRIT 42.6 % (36.0-47.0); HEMOGLOBIN 14.2 g/dL (12.0-15.5); LYMPH # 1.2 x10^3/uL (1.0-4.8); LYMPH % 8 % (24-48); MEAN CORPUSCULAR HEMOGLOBIN 32 pg (25-35); MEAN CORPUSCULAR HGB CONC 33 g/dL (31-37); MEAN CORPUSCULAR VOLUME 95 fL (79-100); MONO # 0.7 x10^3/uL (0.0-1.1); MONO % 5 % (0-9); NEUT # 12.4 x10^3uL (1.8-7.7); NEUT % 87 % (31-73); PLATELET COUNT 219 x10^3/uL (140-400); RED BLOOD COUNT 4.47 x10^6/uL (3.50-5.40); RED CELL DISTRIBUTION WIDTH 13.1 % (11.5-14.5); WHITE BLOOD COUNT 14.3 x10^3/uL (4.0-11.0)
[2019-10-29 09:30] LABS: CALCIUM 8.8 mg/dL (8.5-10.1); CREATININE 0.8 mg/dL (0.6-1.0); GFR 76.2; POTASSIUM 3.7 mmol/L (3.5-5.1)
[2019-10-29 09:36] LABS: VANC TR 16.3 mcg/mL (10.0-20.0)
[2019-10-29 11:22] VITALS: BP 148/73
[2019-10-29] MEDS: LORazepam 1 MG TABLET PO PRN ×2 (12:44→20:51)
[2019-10-29] MEDS: VANCOMYCIN PER PHARMACY MC PRN (14:14)
[2019-10-29 15:00] VITALS: BP 134/75
[2019-10-29 15:35] LABS: % ATYL 2 % (0-0); % LYMPHS 9 % (24-48); % MONOS 1 % (0-10); % SEGS 88 % (35-66)
[2019-10-29 15:36] LABS: PLT ESTIMATE ADEQUATE (ADEQUATE)
[2019-10-29 19:49] VITALS: BP 143/73
[2019-10-29] MEDS: ATORVASTATIN CALCIUM 20 MG TABLET PO SCH (20:51)
[2019-10-29] MEDS: ZOLPIDEM 5 MG TABLET. PO PRN (20:51)
[2019-10-29 22:58] VITALS: BP 136/76
[2019-10-30] MEDS: PIPERACILLIN/TAZOBACTAM 4.5 GM in IV NORMAL SALINE 50ML 50 ML IV SCH (04:44)
[2019-10-30] MEDS: IPRATRPIUM/ALBUTEROL 0.5/2.5MG 3 ML NEBU. NEB SCH ×2 (04:54→09:20)
[2019-10-30 05:15] VITALS: BP 135/81
[2019-10-30 06:48] LABS: BASO # 0.1 x10^3/uL (0.0-0.2); BASO % 1 % (0-3); EOS % 0 % (0-3); HEMATOCRIT 41.7 % (36.0-47.0); HEMOGLOBIN 14.1 g/dL (12.0-15.5); LYMPH # 1.3 x10^3/uL (1.0-4.8); LYMPH % 9 % (24-48); MEAN CORPUSCULAR HEMOGLOBIN 32 pg (25-35); MEAN CORPUSCULAR HGB CONC 34 g/dL (31-37); MEAN CORPUSCULAR VOLUME 94 fL (79-100); MONO # 0.5 x10^3/uL (0.0-1.1); MONO % 4 % (0-9); NEUT # 12.4 x10^3uL (1.8-7.7); NEUT % 87 % (31-73); PLATELET COUNT 211 x10^3/uL (140-400); RED BLOOD COUNT 4.42 x10^6/uL (3.50-5.40); RED CELL DISTRIBUTION WIDTH 13.1 % (11.5-14.5); WHITE BLOOD COUNT 14.3 x10^3/uL (4.0-11.0)
--- NOTE | 2019-10-30 06:48 | PN ---
DATE: SUBJECTIVE: The patient is in with acute respiratory failure, pneumonia, bilateral. The patient is making some progress overall, but still having problems with generalized wheezing, although improved. She is still wheezing, still gets short of breath with exertion. OBJECTIVE: VITAL SIGNS: Blood pressure 134/75, respiratory rate 20, pulse 71, afebrile. GENERAL: The patient is alert and oriented x 3, feels better overall. LUNGS: Diminished throughout with expiratory wheezes noted. NEUROLOGIC: The patient is alert and oriented. White count up to 14, but probably related to steroids. CARDIOVASCULAR: Stable. ABDOMEN: Soft. EXTREMITIES: No clubbing, cyanosis or edema. NEUROLOGIC: Baseline and very pleasant young lady. IMPRESSION: Pneumonia of unspecified etiology, acute respiratory failure, pneumonia along with epistaxis that has stopped, bronchospasm, deep breathing treatments, morbid obesity, type 2 diabetes, sliding scale with insulin. The patient continues to be monitored carefully and we will make further evaluation on her as indicated. ANGELIQUE PETERSON MD DR: MANINDER/mona JOB#: [id number] / [id number]
[2019-10-30 07:00] LABS: CALCIUM 8.6 mg/dL (8.5-10.1); CREATININE 0.8 mg/dL (0.6-1.0); GFR 76.2; POTASSIUM 3.8 mmol/L (3.5-5.1)
[2019-10-30] MEDS: methylPREDNISolone SOD SUCC PF 40 MG/ML VIAL. IV SCH (08:55)
[2019-10-30] MEDS: hydroCHLOROthiazide 12.5 MG CAPSULE PO SCH (08:55)
[2019-10-30] MEDS: amLODIPine BESYLATE 10 MG TABLET PO SCH (08:56)
[2019-10-30] MEDS: FAMOTIDINE 20 MG TABLET PO SCH (08:56)
[2019-10-30] MEDS: LISINOPRIL 10 MG TABLET PO SCH (08:56)
[2019-10-30] MEDS: INSULIN GLARGINE SYRINGE. SQ SCH (08:58)
[2019-10-30] MEDS: INSULIN LISPRO 300 UNITS/3 ML VIAL. SQ SCH ×2 (08:58→11:30)
[2019-10-30] MEDS: NICOTINE 21MG PATCH. TD SCH (08:58)
[2019-10-30] MEDS ORDERED: VANCOMYCIN 1.5 GM in IV NORMAL SALINE 500ML 500 ML IV SCH (09:00)
[2019-10-30] MEDS: CARVEDILOL 12.5 MG TABLET PO SCH (09:05)
[2019-10-30] MEDS: POTASSIUM CHLORIDE 20 MEQ TABLET.ER. PO SCH (09:05)
[2019-10-30] MEDS ORDERED: INSU100I11 SQ (11:26)
[2019-10-30] MEDS ORDERED: PRED20TA PO (11:26)
[2019-10-30 11:51] VITALS: BP 146/88
== END 2019-10-30 12:23 | disposition home or self-care (01) | DRG 871 ==
LOC: 1 SOUTH 19:13
PROVIDERS: ADMIT Family Medicine; ATTEND Family Medicine
DX: A41.9 Sepsis, unspecified organism (principal); J18.9 Pneumonia, unspecified organism; J96.00 Acute respiratory failure, unspecified whether with hypoxia or hypercapnia; J45.901 Unspecified asthma with (acute) exacerbation; J44.0 Chronic obstructive pulmonary disease with (acute) lower respiratory infection; E11.65 Type 2 diabetes mellitus with hyperglycemia; E66.01 Morbid (severe) obesity due to excess calories; F17.210 Nicotine dependence, cigarettes, uncomplicated; I11.0 Hypertensive heart disease with heart failure; I50.9 Heart failure, unspecified; R04.0 Epistaxis; Z81.8 Family history of other mental and behavioral disorders; Z82.49 Family history of ischemic heart disease and other diseases of the circulatory system; Z83.3 Family history of diabetes mellitus; K21.9 Gastro-esophageal reflux disease without esophagitis
CPT/HCPCS: 36415; 71275; 74176; 80048; 80053; 80061; 80202; 80307; 81001; 82947; 82977; 83605; 84443; 85007; 85025; 85379; 85610; 85730; 86738; 87086; 87493; 87804; 93005; 94640; J0456; J1200; J1815; J2543; J2920; J3370; J7040; J7512; J7613; Q9967; J7030

== ENCOUNTER 2020-01-10 19:39 | Inpatient (IN) | payer OTHER ==
[~2020-01-10] VITALS: Ht 162.6 cm; Wt 109.1 kg
[~2020-01-10 19:39] MED LIST changes: +GABA600T7 PO; +INSU100I11 SQ
[2020-01-10] MEDS ORDERED: IV NORMAL SALINE 1,000ML 1,000 ML IV SCH (20:02)
[2020-01-10] MEDS ORDERED: ONDANSETRON PF 4 MG/2 ML VIAL. ONE (20:15)
[2020-01-10] MEDS ORDERED: MORPHINE SULFATE 4 MG/ML DISP.SYRIN. IV/SQ PRN (20:15)
[2020-01-10] MEDS ORDERED: IPRATRPIUM/ALBUTEROL 0.5/2.5MG 3 ML NEBU. NEB ONE (20:15)
[2020-01-10] MEDS ORDERED: ALBUTEROL SULFATE 2.5 MG/3 ML NEBU. NEB ONE (20:15)
[2020-01-10] MEDS ORDERED: ALBUTEROL SULFATE 8GM INHALER. ONE (20:44)
[2020-01-10 20:47] LABS: BASO # 0.2 x10^3/uL (0.0-0.2); BASO % 2 % (0-3); EOS # 0.1 x10^3/uL (0.0-0.7); EOS % 1 % (0-3); HEMATOCRIT 49.3 % (36.0-47.0); HEMOGLOBIN 16.4 g/dL (12.0-15.5); LYMPH # 3.2 x10^3/uL (1.0-4.8); LYMPH % 28 % (24-48); MEAN CORPUSCULAR HEMOGLOBIN 32 pg (25-35); MEAN CORPUSCULAR HGB CONC 33 g/dL (31-37); MEAN CORPUSCULAR VOLUME 96 fL (79-100); MONO # 0.6 x10^3/uL (0.0-1.1); MONO % 6 % (0-9); NEUT # 7.2 x10^3uL (1.8-7.7); NEUT % 64 % (31-73); PLATELET COUNT 275 x10^3/uL (140-400); RED BLOOD COUNT 5.14 x10^6/uL (3.50-5.40); RED CELL DISTRIBUTION WIDTH 14.2 % (11.5-14.5); WHITE BLOOD COUNT 11.3 x10^3/uL (4.0-11.0)
[2020-01-10 20:56] LABS: BILIRUBIN,URINE NEG (NEG); CLARITY,URINE HAZY; COLOR,URINE YELLOW; GLUCOSE,URINE NEG (NEG)
[2020-01-10 20:57] LABS: BACTERIA,URINE FEW /HPF (0-FEW); NITRITE,URINE NEG (NEG); UROBILINOGEN,URINE 0.2 mg/dL (0.2 mg/dL); WBC,URINE OCC /HPF (0-4)
[2020-01-10 20:58] LABS: HYALINE CASTS, URINE OCC /HPF; SQUAMOUS EPITHELIAL CELL,UR FEW /LPF
[2020-01-10 21:08] LABS: ALBUMIN 3.4 g/dL (3.4-5.0); ALBUMIN/GLOBULIN RATIO 0.8 (1.0-1.7); CALCIUM 8.7 mg/dL (8.5-10.1); CREATININE 0.7 mg/dL (0.6-1.0); GFR 88.9; TOTAL BILIRUBIN 0.3 mg/dL (0.2-1.0); TOTAL PROTEIN 7.5 g/dL (6.4-8.2)
[2020-01-10] MEDS ORDERED: ONDANSETRON PF 4 MG/2 ML VIAL. IVP ONE (21:15)
[2020-01-10 21:18] LABS: INFLUENZA A PATIENT NEGATIVE (NEGATIVE); INFLUENZA B PATIENT NEGATIVE (NEGATIVE)
[2020-01-10 21:20] LABS: POTASSIUM 2.5 mmol/L (3.5-5.1)
[2020-01-10] MEDS ORDERED: NICOTINE 14MG PATCH. TD SCH ×2 (21:30)
[2020-01-10] MEDS ORDERED: NICOTINE 21MG PATCH. TD ONE (21:30)
[2020-01-10] MEDS ORDERED: POTASSIUM CL 20MEQ IN 0.9%NACL 1,000 ML IV ONE (21:30)
[2020-01-10] MEDS ORDERED: POTASSIUM CL 40MEQ IN 0.9%NACL 1,000 ML IV ONE (21:45)
--- NOTE | 2020-01-10 21:47 | PHYS DOC ---
Past History Past Medical History: Asthma, CHF, COPD, CVA, Diabetes, Hypertension Additional Past Medical Histor: neuropathy Past Surgical History: Tonsillectomy Alcohol Use: Occasionally Drug Use: None General Adult EDM: Chief Complaint: NAUSEA/VOMITING/DIARRHEA HPI: HPI: Patient is a 49-year-old female who presents with complaint of nausea with vomiting and diarrhea for the last week. Patient states that she has not been able to keep anything down to include water. She also complains of diffuse body aches, stating that her pain is a 10 out of 10. Patient also complains of headache as well as pain under her right arm. She states the headache is a 10 out of 10 as well. [] Review of Systems: Review of Systems: Constitutional: Denies fever or chills Respiratory: Denies cough or shortness of breath Cardiovascular: Denies chest pain or edema GI: Complains of vomiting or diarrhea Musculoskeletal: Complains of diffuse body aches/pain Integument: Denies rash. Complains of painful, swollen lesion in right axilla Neurologic: Denies headache, focal weakness or sensory changes A full 10 point review of systems has been reviewed and is otherwise negative. Heart Score: Risk Factors: Risk Factors: DM, Current or recent (<one month) smoker, HTN, HLP, family history of CAD, obesity. Risk Scores: Score 0 - 3: 2.5% MACE over next 6 weeks - Discharge Home Score 4 - 6: 20.3% MACE over next 6 weeks - Admit for Clinical Observation Score 7 - 10: 72.7% MACE over next 6 weeks - Early Invasive Strategies Current Medications: Current Meds: Current Medications Medications (Trade) Dose Ordered Sig/Javier Start Time Stop Time Status Last Admin Dose Admin Albuterol Sulfate (Ventolin Hfa Inhaler) 60 puff STK-MED ONCE 01/10/20 20:44 01/10/20 20:44 DC Albuterol Sulfate (Ventolin) 5 mg 1X ONCE 01/10/20 20:15 01/10/20 20:17 DC 01/10/20 20:45 5 MG Albuterol/ Ipratropium (Duoneb) 3 ml 1X ONCE 01/10/20 20:15 01/10/20 20:17 DC Fentanyl Citrate (Fentanyl 2ml Vial) 25 mcg PRN Q15MIN PRN 01/10/20 20:15 01/11/20 20:14 01/10/20 20:59 25 MCG Morphine Sulfate (Morphine 4mg Syringe) 4 mg PRN Q15MIN PRN 01/10/20 20:15 01/11/20 20:14 Nicotine (Nicoderm Cq 14mg) 1 patch 1X 01/10/20 21:30 01/10/20 21:25 1 PATCH Nicotine (Nicoderm Cq 21mg) 1 patch 1X ONCE 01/10/20 21:30 01/10/20 21:36 DC Ondansetron HCl (Zofran) 4 mg 1X ONCE 01/10/20 21:15 01/10/20 21:16 DC Potassium Chloride/Sodium Chloride 1,000 ml @ 125 mls/hr 1X ONCE 01/10/20 21:30 01/10/20 21:36 DC Sodium Chloride 1,000 ml @ 1,000 mls/hr Q1H 01/10/20 20:02 01/10/20 21:01 DC 01/10/20 20:30 1,000 MLS/HR Allergies: Allergies: Allergies Coded Allergies Type Severity Reaction Last Updated Verified No Known Allergies Allergy Unknown 10/25/19 Yes Physical Exam: PE: Constitutional: Well developed, well nourished, no acute distress, non-toxic appearance. [] HENT: Normocephalic, atraumatic, bilateral external ears normal, oropharynx moist, no oral exudates, nose normal. [] Eyes: PERRLA, EOMI, conjunctiva normal, no discharge. [] Neck: Normal range of motion, no tenderness, supple, no stridor. [] Cardiovascular: Tachycardic rate with regular rhythm [] Lungs & Thorax: Coarse inspiratory and expiratory wheezes are noted bilaterally to auscultation [] Abdomen: Bowel sounds normal, soft, with mild diffuse tenderness. [] Skin: Warm, dry, no erythema, no rash. Right axilla demonstrates a small area of redness that is raised, indurated and tender. No fluctuance is noted. [] Extremities: No tenderness, no cyanosis, no clubbing, ROM intact. [] Neurologic: Alert and oriented X 3, no focal deficits noted. [] Current Patient Data: Labs: Laboratory Tests Test 01/10/20 19:45 01/10/20 20:10 01/10/20 20:30 Urine Collection Type Unknown Urine Color Yellow Urine Clarity Hazy Urine pH 5.0 Urine Specific [place] <=1.005 Urine Protein Trace (NEG-TRACE) Urine Glucose (UA) Neg mg/dL (NEG) Urine Ketones (Stick) Neg mg/dL (NEG) Urine Blood Large (NEG) Urine Nitrite Neg (NEG) Urine Bilirubin Neg (NEG) Urine Urobilinogen Dipstick 0.2 mg/dL (0.2 mg/dL) Urine Leukocyte Esterase Neg (NEG) Urine RBC 1-2 /HPF (0-2) Urine WBC Occ /HPF (0-4) Urine Squamous Epithelial Cells Few /LPF Urine Bacteria Few /HPF (0-FEW) Urine Hyaline Casts Occ /HPF Influenza Type A (Rapid) Negative (NEGATIVE) Influenza Type B (Rapid) Negative (NEGATIVE) White Blood Count 11.3 x10^3/uL (4.0-11.0) H Red Blood Count 5.14 x10^6/uL (3.50-5.40) Hemoglobin 16.4 g/dL (12.0-15.5) H Hematocrit 49.3 % (36.0-47.0) H Mean Corpuscular Volume 96 fL (79-100) Mean Corpuscular Hemoglobin 32 pg (25-35) Mean Corpuscular Hemoglobin Concent 33 g/dL (31-37) Red Cell Distribution Width 14.2 % (11.5-14.5) Platelet Count 275 x10^3/uL (140-400) Neutrophils (%) (Auto) 64 % (31-73) Lymphocytes (%) (Auto) 28 % (24-48) Monocytes (%) (Auto) 6 % (0-9) Eosinophils (%) (Auto) 1 % (0-3) Basophils (%) (Auto) 2 % (0-3) Neutrophils # (Auto) 7.2 x10^3uL (1.8-7.7) Lymphocytes # (Auto) 3.2 x10^3/uL (1.0-4.8) Monocytes # (Auto) 0.6 x10^3/uL (0.0-1.1) Eosinophils # (Auto) 0.1 x10^3/uL (0.0-0.7) Basophils # (Auto) 0.2 x10^3/uL (0.0-0.2) D-Dimer (Mahsa) 0.54 mg/L (0.00-0.50) H Sodium Level 139 mmol/L (136-145) Potassium Level 2.5 mmol/L (3.5-5.1) *L Chloride Level 98 mmol/L (98-107) Carbon Dioxide Level 23 mmol/L (21-32) Anion Gap 18 (6-14) H Blood Urea Nitrogen 12 mg/dL (7-20) Creatinine 0.7 mg/dL (0.6-1.0) Estimated GFR (Cockcroft-Gault) 88.9 BUN/Creatinine Ratio 17 (6-20) Glucose Level 121 mg/dL (70-99) H Calcium Level 8.7 mg/dL (8.5-10.1) Total Bilirubin 0.3 mg/dL (0.2-1.0) Aspartate Amino Transferase (AST) 33 U/L (15-37) Alanine Aminotransferase (ALT) 36 U/L (14-59) Alkaline Phosphatase 88 U/L (46-116) Troponin I Quantitative < 0.017 ng/mL (0-0.055) VZ-Oxm-L-Type Natriuretic Peptide 137 pg/mL (0-124) H Total Protein 7.5 g/dL (6.4-8.2) Albumin 3.4 g/dL (3.4-5.0) Albumin/Globulin Ratio 0.8 (1.0-1.7) L Vital Signs: Vital Signs Date Time Temp Pulse Resp B/P (MAP) Pulse Ox O2 Delivery O2 Flow Rate FiO2 01/10/20 21:27 110 26 124/73 (90) 93 Room Air 01/10/20 19:39 97.7 EKG: EKG: [] Radiology/Procedures: Radiology/Procedures: [] Course & Med Decision Making: Course & Med Decision Making Pertinent Labs and Imaging studies reviewed. (See chart for details) [] Dragon Disclaimer: Nidia Disclaimer: This electronic medical record was generated, in whole or in part, using a voice recognition dictation system. Departure Departure: Impression: Primary Impression: Hypokalemia Additional Impressions: Vomiting and diarrhea COPD (chronic obstructive pulmonary disease) Qualified Codes: J44.9 - Chronic obstructive pulmonary disease, unspecified Disposition: ADMITTED INPATIENT Admitting Physician: Angelique Estrada Condition: IMPROVED Referrals: ANGELIQUE ESTRADA MD (PCP) JOHN PATTERSON Jr. DO January 10, 2020 21:47
--- NOTE | 2020-01-10 21:54 | RAD ---
Exam: Chest one view INDICATION: Shortness of breath TECHNIQUE: Frontal view of the chest Comparisons: 10/24/2019 FINDINGS: The cardiomediastinal silhouette and pulmonary vessels are within normal limits. The lung and pleural spaces are clear. IMPRESSION: No acute cardiopulmonary process. Electronically signed by: Miguel Herbert MD (01/10/2020 9:51 PM) [id number]
[2020-01-10] MEDS ORDERED: MORPHINE SULFATE 2 MG/ML DISP.SYRIN. IVP PRN (22:00)
[2020-01-10] MEDS ORDERED: ACETAMINOPHEN 325 MG TABLET PO PRN (22:00)
--- NOTE | 2020-01-10 22:27 | EKG ---
[address] [address] Test Date: 2020-01-10 Test Time: 20:50:57 Pat Name: OLIVER PEARSON Department: Room: 123 A Gender: F Hide Puller: : 1970 Requested By: JOHN PATTERSON Order Number: [id number] Reading MD: Blayne Draper Measurements Intervals [place] Rate: 127 P: 49 WA: 120 QRS: 43 QRSD: 76 T: 54 QT: 310 QTc: 456 Interpretive Statements SINUS TACHYCARDIA VENTRICULAR PREMATURE COMPLEX(ES) Electronically Signed On 01-11-2020 8:08:08 CDT by Blayne Draper
[2020-01-10] MEDS: IV NORMAL SALINE 1,000ML 1,000 ML IV SCH (22:35)
[2020-01-10 22:52] VITALS: BP 126/84
[2020-01-11] MEDS ORDERED: GLIP-24 PO (00:28)
[2020-01-11] MEDS ORDERED: LISI-334 PO (00:28)
[2020-01-11] MEDS ORDERED: OMEP20TA63 PO (00:28)
[2020-01-11] MEDS ORDERED: VANCOMYCIN 2 GM in IV NORMAL SALINE 500ML 500 ML IV ONE ×2 (01:00→14:00)
[2020-01-11] MEDS: ONDANSETRON PF 4 MG/2 ML VIAL. IVP PRN ×3 (04:10→21:01)
[2020-01-11] MEDS: IV NORMAL SALINE 1,000ML 1,000 ML IV SCH ×2 (05:49→13:49)
[2020-01-11 06:23] VITALS: BP 164/65
[2020-01-11 06:43] LABS: BASO # 0.1 x10^3/uL (0.0-0.2); BASO % 1 % (0-3); EOS # 0.1 x10^3/uL (0.0-0.7); EOS % 1 % (0-3); HEMATOCRIT 46.6 % (36.0-47.0); HEMOGLOBIN 15.3 g/dL (12.0-15.5); LYMPH # 2.2 x10^3/uL (1.0-4.8); LYMPH % 18 % (24-48); MEAN CORPUSCULAR HEMOGLOBIN 32 pg (25-35); MEAN CORPUSCULAR HGB CONC 33 g/dL (31-37); MEAN CORPUSCULAR VOLUME 97 fL (79-100); MONO # 0.6 x10^3/uL (0.0-1.1); MONO % 5 % (0-9); NEUT # 9.2 x10^3uL (1.8-7.7); NEUT % 75 % (31-73); PLATELET COUNT 193 x10^3/uL (140-400); RED BLOOD COUNT 4.82 x10^6/uL (3.50-5.40); RED CELL DISTRIBUTION WIDTH 13.7 % (11.5-14.5); WHITE BLOOD COUNT 12.3 x10^3/uL (4.0-11.0)
[2020-01-11 06:47] LABS: CALCIUM 8.4 mg/dL (8.5-10.1); CREATININE 0.5 mg/dL (0.6-1.0); GFR 131.1
[2020-01-11 06:51] LABS: POTASSIUM 3.8 mmol/L (3.5-5.1)
[2020-01-11 10:34] VITALS: BP 162/72
[2020-01-11] MEDS ORDERED: ACETAMINOPHEN 325 MG TABLET PO ONE (11:00)
[2020-01-11] MEDS: ENOXAPARIN 40 MG/0.4 ML SYRINGE. SQ SCH ×2 (11:09→22:19)
[2020-01-11] MEDS ORDERED: ELECTROLYTE (NON-ICU) PROTOCOL MC PRN (11:15)
[2020-01-11] MEDS: MORPHINE SULFATE 2 MG/ML DISP.SYRIN. IV PRN ×2 (11:25→20:26)
[2020-01-11] MEDS ORDERED: cloNIDine TTS-1 1 PATCH PATCH TD SCH (11:30)
[2020-01-11] MEDS ORDERED: ALBUTEROL SULFATE 2.5 MG/3 ML NEBU. INH PRN (11:45)
[2020-01-11] MEDS ORDERED: IOHEXOL 350 MG/ML 100 ML VIAL. IV ONE (13:15)
--- NOTE | 2020-01-11 13:27 | HP ---
ADMIT DATE: 01/10/2020 HISTORY OF PRESENT ILLNESS: This 49-year-old female came in with severe nausea and vomiting for the past week. 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 The patient notes she is extremely ill, achy all over. Diffuse body aches, pain of 10/10. Her potassium was in the 2 range. She also notes she has a headache as well. The patient is very, very ill individual obviously with a low potassium and the like. The patient was admitted for complexity of multiple medical issues here including her headache, coughing, nausea, dyspnea, abdominal pain, profuse diarrhea, hypokalemia, dehydration. PAST MEDICAL HISTORY: Asthma, CHF, COPD, sleep apnea with CPAP, hypertension, history of CHF, headache, tonsillectomy, GERD, hematuria, arthritis, back pain, diabetes, anxiety, tobacco abuse. Tetanus, influenza up-to-date. Sleep difficulties, insomnia. FAMILY HISTORY: Positive for obesity, hypertension, diabetes, depression, cardiovascular disease and angina. ALLERGIES: There were no known allergies. MEDICATIONS: Reconciled including ProAir, will hold off on the glipizide and I do not know if she can hold down the lisinopril, so we will hold off on that. Gabapentin 600 b.i.d. The Prilosec will be held off because of her nausea. The patient in turn will be placed on a Catapres patch for blood pressure and we will go from there adjusting her medications. SOCIAL HISTORY: As noted. The patient denies any smoking or drinking, but does have a history of tobacco use. REVIEW OF SYSTEMS: Just generalized achiness all over, with nausea, vomiting, hypokalemia, just achy everywhere on her body, diarrhea, multiple stools daily. She did not notice any blood in the stools per se. The patient otherwise neurologically seems to be alert. She denies any nuchal rigidity. She has a cough, but she will be checked for COVID-19. PHYSICAL EXAMINATION: GENERAL: This is a very pleasant white female. She is in extreme pain. VITAL SIGNS: Blood pressure 126/80, respiratory rate 24, pulse 103, temperature 99.3, oxygen saturation 92%. HEENT: The patient's head was atraumatic, normocephalic. The patient was talking coherently and so forth. Patient's mouth and throat, dry mucous membranes. Eyes were PERRL, conjugate. LUNGS: Diminished, coarse breath sounds. CARDIOVASCULAR: Tachy. ABDOMEN: Protuberant, very tender, soft, diffuse tenderness. EXTREMITIES: No clubbing, cyanosis, nor edema. There is an abscess in her right axilla approximately about 3-4 cm, bright red, it is very tender there and as noted the patient is extremely uncomfortable, pain of 9-10/10. LABORATORY DATA: The patient's labs were demonstrative of an elevated white count of 11,000, up to 12,000. Hemoglobin down from 16, down to 15, showing dehydration. The patient's potassium 2.5. Sodium 139, BUN and creatinine 12 and 0.7. The patient's coags showed an elevated D-dimer of ____. UA shows large amount of blood. Apparently, she has had that before. Influenza was obtained and that was negative. The patient's BNP was normal. Apparently, lactic acid was not performed and that is pending. We will culture up her stools. She needs further CTA of the chest, CTA of the abdomen and pelvis, collection of the stools, monitor this abscess under the armpit. We will go ahead and get that taken care probably as soon as we get some IV antibiotic ____ get some other labs back on her. Potassium has come up with potassium supplementation. IMPRESSION: Sepsis, gastroenteritis, diarrhea, severe hypokalemia, acute bronchitis, acute bronchospasm, type 2 diabetes, morbid obesity, hematuria, generalized achiness, leukocytosis. PLAN: As above. ANGELIQUE PETERSON MD DR: MANINDER/mona JOB#: [id number] / [id number]
--- NOTE | 2020-01-11 14:25 | RAD ---
CT ANGIO CHEST W ABD PEL W/ INDICATION: Dyspnea, elevated d-dimer. Comparison: 10/26/2019. TECHNIQUE: Following the uneventful administration of intravenous contrast, axial CT sections were obtained through the lungs and upper abdomen. Multiplanar reconstructions and MIP images were obtained. PQRS compliance statement: One or more of the following individualized dose reduction techniques were utilized for this examination: 1. Automated exposure control 2. Adjustment of the mA and/or kV according to patient size 3. Use of iterative reconstruction technique FINDINGS: Pulmonary arteries: No evidence of pulmonary thromboembolic disease. Lungs and Airways: No pulmonary mass or consolidation. No abnormality of the central airways. Pleura: The pleural spaces are normal. Heart and Mediastinum: The visualized thyroid is normal in size and attenuation. No axillary or supraclavicular lymphadenopathy. No mediastinal, hilar or retrocrural lymphadenopathy. The heart and pericardium are within normal limits. The great vessels of the thorax are normal. Abdomen: Hepatic steatosis. Bones and Soft Tissues: The visualized bones and chest wall soft tissues are within normal limits. IMPRESSION: 1. No evidence of pulmonary thromboembolic disease. 2. No pulmonary mass or consolidation. Electronically signed by: Dima Orta MD (01/11/2020 2:22 PM) [id number]
[2020-01-11] MEDS ORDERED: chlordiazePOXIDE HCL 25 MG CAPSULE PO PRN ×2 (15:00→15:45)
[2020-01-11] MEDS ORDERED: THIAMINE INJ 100 MG in IV NORMAL SALINE 50ML 50 ML IV ONE (15:00)
[2020-01-11 15:23] VITALS: BP 174/93
[2020-01-11 15:31] LABS: MAGNESIUM 1.8 mg/dL (1.8-2.4)
[2020-01-11] MEDS ORDERED: AZITHROMYCIN 500 MG in IV NORMAL SALINE 250ML 250 ML IV SCH (16:00)
[2020-01-11] MEDS ORDERED: DEXTROSE 50% 25 GM / 50ML DISP.SYRIN. IV PRN (19:15)
[2020-01-11 20:21] LABS: BARBITURATES NEG (NEG); BENZODIAZEPINES NEG (NEG); CANNABINOIDS NEG (NEG); COCAINE NEG (NEG); METHADONE NEG (NEG); OPIATES POS (NEG); PHENCYCLIDINE NEG (NEG)
[2020-01-11 20:22] LABS: AMPHETAMINE/METHAMPHETAMINE NEG (NEG)
[2020-01-11] MEDS: AZITHROMYCIN 500 MG in IV NORMAL SALINE 250ML 250 ML IV SCH (20:25)
[2020-01-11 20:29] VITALS: BP 140/101
[2020-01-11 20:33] LABS: FECAL OB PT POSITIVE (NEG)
[2020-01-11] MEDS: IPRATRPIUM/ALBUTEROL 0.5/2.5MG 3 ML NEBU. NEB SCH (21:00)
[2020-01-11] MEDS: VANCOMYCIN 1.5 GM in IV NORMAL SALINE 500ML 500 ML IV SCH (22:18)
[2020-01-11 23:10] VITALS: BP 168/84
[2020-01-12] MEDS: MORPHINE SULFATE 2 MG/ML DISP.SYRIN. IV PRN ×4 (03:23→16:57)
[2020-01-12] MEDS: VANCOMYCIN 1.5 GM in IV NORMAL SALINE 500ML 500 ML IV SCH ×3 (06:06→22:56)
[2020-01-12 06:24] VITALS: BP 186/93
[2020-01-12 06:34] LABS: BASO # 0.1 x10^3/uL (0.0-0.2); BASO % 1 % (0-3); EOS # 0.2 x10^3/uL (0.0-0.7); EOS % 2 % (0-3); HEMATOCRIT 40.7 % (36.0-47.0); HEMOGLOBIN 13.5 g/dL (12.0-15.5); LYMPH # 1.5 x10^3/uL (1.0-4.8); LYMPH % 17 % (24-48); MEAN CORPUSCULAR HEMOGLOBIN 32 pg (25-35); MEAN CORPUSCULAR HGB CONC 33 g/dL (31-37); MEAN CORPUSCULAR VOLUME 97 fL (79-100); MONO # 0.5 x10^3/uL (0.0-1.1); MONO % 6 % (0-9); NEUT # 6.5 x10^3uL (1.8-7.7); NEUT % 74 % (31-73); PLATELET COUNT 199 x10^3/uL (140-400); RED BLOOD COUNT 4.21 x10^6/uL (3.50-5.40); RED CELL DISTRIBUTION WIDTH 13.9 % (11.5-14.5); WHITE BLOOD COUNT 8.8 x10^3/uL (4.0-11.0)
[2020-01-12 06:40] LABS: CALCIUM 7.8 mg/dL (8.5-10.1); CREATININE 0.6 mg/dL (0.6-1.0); GFR 106.3; POTASSIUM 3.6 mmol/L (3.5-5.1)
[2020-01-12] MEDS ORDERED: ANTI-COAG MONITOR BY PHARMACY. MC PRN (07:30)
[2020-01-12] MEDS: IPRATRPIUM/ALBUTEROL 0.5/2.5MG 3 ML NEBU. NEB SCH ×2 (08:07→19:29)
[2020-01-12] MEDS: INSULIN LISPRO 300 UNITS/3 ML VIAL. SQ SCH ×3 (08:11→16:58)
[2020-01-12] MEDS ORDERED: MVI, ADULT NO.4 WITH VIT K 10 ML, THIAMINE INJ 100 MG, FOLIC ACID INJ 1 MG in IV NORMAL... IV PRN ×4 (09:00)
[2020-01-12] MEDS ORDERED: LIDOCAINE 1%/EPI 1:100,000 20 ML VIAL. IJ ONE (09:15)
--- NOTE | 2020-01-12 10:47 | PN ---
DATE: SUBJECTIVE: The patient admitted for severe nausea, vomiting, cough. White count has come down from 12 down to 8. She is complaining of severe lower back pain. She did have problems with blood in the stool. We will be taking her off Lovenox, put her on SCDs for now. Blood pressure was elevated (NC), will go ahead and continue to monitor her. OBJECTIVE: VITAL SIGNS: Otherwise, the patient is alert and oriented. LUNGS: Diminished, but clear. CARDIOVASCULAR: Stable. Apparently, a CAT scan for whatever reason only read out. CT of the chest and abdomen does not show the pelvis, but her back pain is significant enough to warrant a further explanation and evaluation of that. Her renal function is normal. Her blood sugars have been under better control. The patient otherwise seems to be resting fairly comfortably, little bit more so, but complaining still had some cramping and diarrhea. Those were sent off for stool cultures, O and P. We will go ahead and continue to monitor the patient. Continue to monitor blood pressure. IMPRESSION: Sepsis, gastroenteritis, diarrhea, severe hypokalemia corrected, acute bronchitis, acute bronchospasm, type 2 diabetes, morbid obesity, hematuria, melena, generalized achiness, leukocytosis, positive D-dimer. Abscess goes to the right axilla, which was drained today. See procedure note on that. Lower back pain, to be further evaluated with a CAT scan. ANGELIQUE PETERSON MD DR: MANINDER/mona JOB#: [id number] / [id number]
--- NOTE | 2020-01-12 10:52 | OP ---
DATE OF SURGERY: 01/12/2020 INDICATIONS: The patient had an approximately a 4.5 cm x 1 cm abscess in her right axillary area. DESCRIPTION OF PROCEDURE: After the patient gave her written consent, I told the possible complications of infection spreading and reoccurrence of this particular situation. The patient was numbed up with 1% lidocaine with epinephrine to sufficient anesthesia, all under sterile technique, of course assisted with nurse RN, Ramona and ____ buildup and excised approximately 3-4 mL of pus drainage, which was cultured and sent for culture. The area then was debrided and then flushed with normal saline to sufficient cleanliness, packed with sterile iodoform gauze and bandage placed. The patient tolerated the procedure. She complains of no pain. There was no loss of functions of the right arm and the right axilla. All sensory and neurological functions were undertaken and monitored carefully. The patient in turn made good progress and the patient was successfully placed back in bed. IMPRESSION: Abscess to the right axilla. PROCEDURE: I and D with debridement of the abscess to the right axilla. PLAN: Continue with IV antibiotic therapy, culture sensitivity and repacking in the morning. ANGELIQUE PETERSON MD DR: MANINDER/mona JOB#: [id number] / [id number]
[2020-01-12 11:13] VITALS: BP 177/88
[2020-01-12] MEDS: amLODIPine BESYLATE 10 MG TABLET PO SCH (12:15)
--- NOTE | 2020-01-12 14:42 | RAD ---
CT lumbar spine without contrast History: Back pain Axial helical images of the lumbar spine were obtained without contrast. Axial, coronal and sagittal reconstruction was performed. Findings: The vertebral bodies are aligned. There is no loss of vertebral body stature. Evaluation of the central canal is limited without contrast. Diffuse circumferential disc bulge and hypertrophy of the facets and ligament flavum results in mild to moderate central stenosis at L4-L5. There is crowding the lateral recess on the left at L5-S1. There is loss of intervertebral disc height and marginal spurring of endplates at multiple levels. There is moderate narrowing of the neuroforamen bilaterally at L5-S1 with loss of fat around the exiting nerve roots. There is mild sclerotic changes of the SI joints. Impression: 1. Degenerative changes with mild to moderate central stenosis at L4-5. 2. Compression of the internal course the exiting nerve roots bilaterally at L5-S1. 3. No acute findings. End impression PQRS Compliance Statement: One or more of the following individualized dose reduction techniques were utilized for this examination: 1. Automated exposure control 2. Adjustment of the mA and/or kV according to patient size 3. Use of iterative reconstruction technique Electronically signed by: Jude Brownlee III, MD (01/12/2020 2:39 PM) [id number]
[2020-01-12 14:53] LABS: VANC TR 16.9 mcg/mL (10.0-20.0)
[2020-01-12 15:18] VITALS: BP 178/89
[2020-01-12] MEDS: oxyCODONE/APAP 7.5/325 1 TAB TABLET PO PRN (16:57)
[2020-01-12] MEDS: METOPROLOL SUCC 24HR ER 50 MG TAB.ER.24H. PO SCH (16:59)
[2020-01-12] MEDS: VANCOMYCIN PER PHARMACY MC PRN (19:01)
[2020-01-12 19:14] VITALS: BP 175/74
[2020-01-12] MEDS: AZITHROMYCIN 500 MG in IV NORMAL SALINE 250ML 250 ML IV SCH (19:29)
[2020-01-12] MEDS: diphenhydrAMINE HCL 25 MG CAPSULE PO PRN (22:26)
[2020-01-12 23:34] VITALS: BP 137/72
[2020-01-13 05:27] VITALS: BP 164/78
[2020-01-13] MEDS: oxyCODONE/APAP 7.5/325 1 TAB TABLET PO PRN ×3 (05:36→22:53)
[2020-01-13] MEDS: diphenhydrAMINE HCL 25 MG CAPSULE PO PRN ×3 (05:44→22:28)
[2020-01-13] MEDS: MORPHINE SULFATE 2 MG/ML DISP.SYRIN. IV PRN (05:56)
[2020-01-13] MEDS: VANCOMYCIN 1.5 GM in IV NORMAL SALINE 500ML 500 ML IV SCH ×3 (05:57→22:27)
[2020-01-13 06:31] LABS: BASO # 0.1 x10^3/uL (0.0-0.2); BASO % 1 % (0-3); EOS # 0.2 x10^3/uL (0.0-0.7); EOS % 2 % (0-3); HEMATOCRIT 39.5 % (36.0-47.0); HEMOGLOBIN 13.2 g/dL (12.0-15.5); LYMPH # 1.3 x10^3/uL (1.0-4.8); LYMPH % 15 % (24-48); MEAN CORPUSCULAR HEMOGLOBIN 32 pg (25-35); MEAN CORPUSCULAR HGB CONC 33 g/dL (31-37); MEAN CORPUSCULAR VOLUME 96 fL (79-100); MONO # 0.5 x10^3/uL (0.0-1.1); MONO % 6 % (0-9); NEUT # 6.5 x10^3uL (1.8-7.7); NEUT % 76 % (31-73); PLATELET COUNT 183 x10^3/uL (140-400); RED BLOOD COUNT 4.11 x10^6/uL (3.50-5.40); RED CELL DISTRIBUTION WIDTH 13.8 % (11.5-14.5); WHITE BLOOD COUNT 8.6 x10^3/uL (4.0-11.0)
[2020-01-13 06:35] LABS: CALCIUM 8.3 mg/dL (8.5-10.1); CREATININE 0.5 mg/dL (0.6-1.0); GFR 131.1; POTASSIUM 3.8 mmol/L (3.5-5.1)
[2020-01-13] MEDS: INSULIN LISPRO 300 UNITS/3 ML VIAL. SQ SCH ×3 (08:14→17:00)
[2020-01-13] MEDS: METOPROLOL SUCC 24HR ER 50 MG TAB.ER.24H. PO SCH (08:15)
[2020-01-13] MEDS: amLODIPine BESYLATE 10 MG TABLET PO SCH (08:15)
--- NOTE | 2020-01-13 09:37 | PN ---
DATE: 01/13/2020 SUBJECTIVE: The patient is resting fairly comfortably, making some progress. She is still very weak, still wheezing throughout her lungs, still having severe pain in her back. X-rays showed severe compression of one of the nerves at L5-S1, which no doubt is giving the severity of her pain. OBJECTIVE: VITAL SIGNS: Blood pressure has come down to 164/78, respiratory rate 18, pulse 82, afebrile. GENERAL: The patient is alert and oriented. LUNGS: Diminished but coarse, bilateral wheezing noted. CARDIOVASCULAR: Regular sinus rhythm. ABDOMEN: Soft, nontender. Afebrile, the patient is COVID-19 negative. We will continue with PT, OT to see if we can get that back loosened up a little bit and allow her to mobilize, but she is still having significant problems breathing and we will need to continue to monitor her accordingly on these episodes of her breathing and the severity of her back pain. The wound in her right upper arm seems to be healing well. Culture on that is pending. IMPRESSION: Sepsis, gastroenteritis, diarrhea, severe hypokalemia, abscess to the right armpit, postprocedure pinched nerve or a compressed nerve of the lower back, melena, diarrhea, generalized achiness leukocytosis, morbid obesity, alcoholism. PLAN: Continue to monitor the patient accordingly. We will try to get those cultures back on her axilla, which did not show gram-positive, so the vancomycin theoretically should be helping her there. We will go ahead and discontinue the Zithromax and go from there. ANGELIQUE PETERSON MD DR: MANINDER/mona JOB#: [id number] / [id number]
[2020-01-13 10:57] VITALS: BP 176/85
[2020-01-13] MEDS ORDERED: MAG HYDROX/AL HYDROX/SIMETH 30 ML ORAL.SUSP PO PRN (14:30)
[2020-01-13 15:55] VITALS: BP 157/91
[2020-01-13] MEDS: IPRATRPIUM/ALBUTEROL 0.5/2.5MG 3 ML NEBU. NEB SCH ×2 (16:17→20:47)
[2020-01-13 19:35] VITALS: BP 181/94
[2020-01-13] MEDS: DEXAMETHASONE SOD PHOS 4 MG/ML VIAL IVP SCH (21:19)
[2020-01-13 22:00] LABS: VANC TR 14.6 mcg/mL (10.0-20.0)
[2020-01-13] MEDS: VANCOMYCIN PER PHARMACY MC PRN (22:31)
[2020-01-13 23:45] VITALS: BP 169/93
[2020-01-14 05:50] VITALS: BP 144/83
[2020-01-14] MEDS: oxyCODONE/APAP 7.5/325 1 TAB TABLET PO PRN (06:25)
[2020-01-14] MEDS: VANCOMYCIN 1.5 GM in IV NORMAL SALINE 500ML 500 ML IV SCH (06:25)
[2020-01-14 08:04] VITALS: BP 144/83
[2020-01-14] MEDS: METOPROLOL SUCC 24HR ER 50 MG TAB.ER.24H. PO SCH (08:04)
[2020-01-14] MEDS: amLODIPine BESYLATE 10 MG TABLET PO SCH (08:04)
[2020-01-14] MEDS: INSULIN LISPRO 300 UNITS/3 ML VIAL. SQ SCH (08:05)
[2020-01-14] MEDS: DEXAMETHASONE SOD PHOS 4 MG/ML VIAL IVP SCH (08:05)
[2020-01-14] MEDS: IPRATRPIUM/ALBUTEROL 0.5/2.5MG 3 ML NEBU. NEB SCH (09:00)
[2020-01-14] MEDS ORDERED: ZOLP5TAB PO (09:57)
[2020-01-14] MEDS ORDERED: HYDR-2155 PO (09:57)
[2020-01-14] MEDS ORDERED: METO50TA29 PO (09:57)
[2020-01-14] MEDS ORDERED: AMOX1TAB61 PO (09:57)
[2020-01-14] MEDS ORDERED: CLON-276 PO (09:57)
--- NOTE | 2020-01-14 11:13 | DS ---
DATE OF DISCHARGE: HOSPITAL COURSE: A 49-year-old female came in through the Emergency Room. The patient was extremely ill with severe nausea and vomiting for the past week. 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 The patient had diffuse body aches, pain was 10/10. Potassium was down to 2. The patient had a severe headache as well as having complexity of multiple medical problems including difficulty in breathing, acute respiratory distress with dyspnea, severe abdominal pain, profuse diarrhea, hypokalemia and dehydration. The patient was admitted. She was placed on COVID-19 protocol that turned out to be negative. She was given respiratory therapy treatments and made good progress during the rest of her hospitalization. She had apparently been drinking and we put her on a [facility] detox protocol and made good progress there. She has a history of sleep apnea and needs to be followed up on that as well as other numerous medical issues. The patient made excellent progress during the rest of her hospitalization. Her blood sugars were monitored in the usual fashion and remained under basic good control with a sliding scale. The patient did have negative for C. diff, is negative for influenza and negative for SARS-CoV-19. The patient had a lumbar scan because of her back and showed compression of the internal course of the exiting nerve bilaterally at L5-S1, which was causing her severe pain. She will follow up with a neurosurgeon for that. Her CTA demonstrated no evidence of thrombolytic problems or consolidation or masses in the lungs themselves. The patient's labs as noted above. She made excellent progress during the rest of her hospitalization. On those, her BUN and creatinine remained basically stable. Her potassium came up into range. At time of discharge, she was breathing easier, was still very weak, going to receive PT, OT and continue to be monitored as an outpatient obviously and requires at least another week off from work. IMPRESSION: Sepsis, acute respiratory distress, dyspnea, morbid obesity, hypokalemia, dehydration, type 2 diabetes, tobacco addiction, gastroenteritis, pinched nerves at L5-S1, melena, diarrhea, generalized achiness, history of alcohol abuse. The patient to continue to be monitored carefully as an outpatient, continue rehabilitation. Did discuss smoking cessation and other health risk factors. Have her return to clinic for followup. She needs to be monitored on her diabetes as well as her multiple other medical problems, get her in the Neurosurgery to look at this back, probably get an MRI, a sleep study to reaffirm her sleep apnea and probably needs a CPAP. She is morbidly obese and has a neck girth of greater than 17 inches as well as snoring during the night as noted here in the hospital itself. Otherwise, she will continue to be monitored carefully and make further evaluation on her as an outpatient. ANGELIQUE PETERSON MD DR: MANINDER/mona JOB#: [id number] / [id number]
[2020-01-16] MEDS ORDERED: THIAMINE 100 MG TABLET. PO SCH (09:00)
[2020-01-16] MEDS ORDERED: MULTIVITAMIN with MINERAL TABLET. PO SCH (09:00)
[2020-01-16] MEDS ORDERED: FOLIC ACID 1 MG TABLET PO SCH (09:00)
== END 2020-01-14 11:05 | disposition home or self-care (01) | DRG 854 ==
LOC: ER 19:39 → 1 SOUTH 21:48
PROVIDERS: ADMIT Family Medicine; ATTEND Family Medicine
PROC: 0XB40ZZ Excision of Right Axilla, Open Approach (ICD-10-PCS; principal; 2020-01-12)
DX: A41.9 Sepsis, unspecified organism (principal); J44.0 Chronic obstructive pulmonary disease with (acute) lower respiratory infection; L02.411 Cutaneous abscess of right axilla; Z68.41 Body mass index [BMI] 40.0-44.9, adult; E11.41 Type 2 diabetes mellitus with diabetic mononeuropathy; E66.01 Morbid (severe) obesity due to excess calories; E86.0 Dehydration; E87.6 Hypokalemia; F10.20 Alcohol dependence, uncomplicated; G47.30 Sleep apnea, unspecified; I11.0 Hypertensive heart disease with heart failure; I50.9 Heart failure, unspecified; J20.9 Acute bronchitis, unspecified; F41.9 Anxiety disorder, unspecified; K21.9 Gastro-esophageal reflux disease without esophagitis; M19.90 Unspecified osteoarthritis, unspecified site; K52.9 Noninfective gastroenteritis and colitis, unspecified; Z81.8 Family history of other mental and behavioral disorders; Z82.49 Family history of ischemic heart disease and other diseases of the circulatory system; Z83.3 Family history of diabetes mellitus; Z86.73 Personal history of transient ischemic attack (TIA), and cerebral infarction without residual deficits; Z87.891 Personal history of nicotine dependence; Z20.828 Contact with and (suspected) exposure to other viral communicable diseases
CPT/HCPCS: 36415; 71045; 71275; 74177; 80048; 80053; 80202; 80307; 81001; 82274; 82947; 83605; 83690; 83735; 83880; 84436; 84484; 85025; 85379; 87070; 87177; 87209; 87493; 87505; 87804; 93005; 94640; 99406; J0456; J1100; J1650; J1815; J2270; J2405; J3010; J3370; J7040; J7050; J7613; Q0163; Q9967; J7030

== ENCOUNTER → 2020-06-21 | Outpatient (CLI) | payer OTHER ==
[~2020-06-21] MED LIST changes: +AMOX1TAB61 PO; +CLON-276 PO; +GLIP-24 PO; +HYDR-2155 PO; +LISI-334 PO; +METO50TA29 PO; +OMEP20TA63 PO; +ZOLP5TAB PO
--- NOTE | 2020-06-21 10:13 | RAD ---
EXAM: Abdomen and pelvis CT without intravenous contrast. HISTORY: Pain, nausea and vomiting. TECHNIQUE: Computed tomographic images of the abdomen and pelvis were obtained without contrast. Multiplanar reformatting was performed. *One or more of the following individualized dose reduction techniques were utilized for this examination: 1. Automated exposure control. 2. Adjustment of the mA and/or kV according to patient size. 3. Use of iterative reconstruction technique. COMPARISON: 10/26/2019. FINDINGS: Evaluation of the lower thorax demonstrates no infiltrate or pleural effusion. The heart is normal in size. There is hepatomegaly and hepatic steatosis. No focal hepatic lesion is seen. The gallbladder, pancreas, spleen and adrenal glands are unremarkable. There is no hydronephrosis. No solid or cystic renal lesion is seen on this noncontrast exam. There is no nephroureterolithiasis. The bladder is nearly empty. There is no appendicitis. There is no bowel obstruction. There is increased fat within the proximal colonic wall, a finding which can be seen as a sequela of chronic inflammation. There is distal colonic diverticulosis. There is no convincing diverticulitis. The uterus and ovaries are unremarkable. The aorta is normal in caliber. There is no lymphadenopathy. There is stable subchondral sclerosis involving the left greater than right sacroiliac joints. There are degenerative changes involving the lumbar spine and there is lower lumbar spine epidural lipomatosis contribute to central canal stenosis. IMPRESSION: 1. No convincing acute abdominal or pelvic finding. 2. Hepatic megaly and hepatic steatosis. 3. Chronic diverticulosis without convincing diverticulitis. Electronically signed by: Denise Carr MD (06/21/2020 10:09 AM) [id number]
== END ==
LOC: CT 09:32
PROVIDERS: ATTEND Nurse Practitioner Adult Health
DX: K52.89 Other specified noninfective gastroenteritis and colitis (principal); K57.30 Diverticulosis of large intestine without perforation or abscess without bleeding; N20.0 Calculus of kidney; K76.0 Fatty (change of) liver, not elsewhere classified; K57.92 Diverticulitis of intestine, part unspecified, without perforation or abscess without bleeding
CPT/HCPCS: 74176

== ENCOUNTER 2020-10-15 10:37 | Inpatient (IN) | payer OTHER ==
[~2020-10-15] VITALS: Ht 165.1 cm; Wt 108.8 kg
[~2020-10-15 10:37] MED LIST changes: -LISI-334 PO; +LISI20TA18 PO
[2020-10-15 11:07] VITALS: BP 178/82
--- NOTE | 2020-10-15 11:20 | NUR ---
NURSING NOTE DISCHARGE PT DISCHARGED TO HOME VIA AMBULATION PICKED UP BY . PT GIVEN WRITTEN AND VERBAL DISCHARGE INSTRUCTIONS. NO COMPLICATION. REGINE HOLDER. Addendum: 10/15/20 at 1205 by GALLO AQUINO RN RN INCORRECT PT.
[2020-10-15 11:25] LABS: BASO # 0.1 x10^3/uL (0.0-0.2); BASO % 1 % (0-3); EOS % 0 % (0-3); HEMATOCRIT 45.5 % (36.0-47.0); HEMOGLOBIN 15.2 g/dL (12.0-15.5); LYMPH # 1.4 x10^3/uL (1.0-4.8); LYMPH % 13 % (24-48); MEAN CORPUSCULAR HEMOGLOBIN 33 pg (25-35); MEAN CORPUSCULAR HGB CONC 34 g/dL (31-37); MEAN CORPUSCULAR VOLUME 99 fL (79-100); MONO # 0.6 x10^3/uL (0.0-1.1); MONO % 6 % (0-9); NEUT # 8.6 x10^3uL (1.8-7.7); NEUT % 81 % (31-73); PLATELET COUNT 210 x10^3/uL (140-400); RED CELL DISTRIBUTION WIDTH 14.4 % (11.5-14.5); WHITE BLOOD COUNT 10.7 x10^3/uL (4.0-11.0)
[2020-10-15] MEDS ORDERED: SEMA7TAB PO (11:32)
[2020-10-15] MEDS ORDERED: FLUT1BLS3 IH (11:32)
[2020-10-15] MEDS ORDERED: ONDA4TAB7 PO (11:32)
[2020-10-15] MEDS ORDERED: LEVO500T8 PO (11:32)
[2020-10-15 11:46] LABS: ALBUMIN 3.1 g/dL (3.4-5.0); ALBUMIN/GLOBULIN RATIO 0.8 (1.0-1.7); CALCIUM 9.2 mg/dL (8.5-10.1); CREATININE 0.9 mg/dL (0.6-1.0); GFR 66.3; POTASSIUM 3.8 mmol/L (3.5-5.1); TOTAL BILIRUBIN 0.6 mg/dL (0.2-1.0)
--- NOTE | 2020-10-15 12:01 | NUR ---
NURSING NOTE ADMIT PT ADMIT TO ROOM 113 FOR DX OF PNEUMONIA VIA AMBULATION FROM HOME DIRECT ADMIT. PT C/O SOA, STATES SHE WENT TO DR PETERSON OFFICE AND WAS GIVEN ANTIBIOTICS AND WENT TODAY FOR FOLLOW UP AND WAS TOLD HER LUNGS SOUND WORSE AND WAS SENT HERE. PT SETTLED IN ROOM. DR PETERSON NOTIFIED OF ADMISSION. REGINE HOLDER.
[2020-10-15] MEDS: IPRATRPIUM/ALBUTEROL 0.5/2.5MG 3 ML NEBU. NEB SCH ×3 (12:07→19:12)
[2020-10-15] MEDS ORDERED: NICOTINE 21MG PATCH. TD ONE (12:15)
[2020-10-15] MEDS ORDERED: ZOLPIDEM 5 MG TABLET. PO PRN (12:15)
[2020-10-15] MEDS: IV NORMAL SALINE 1,000ML 1,000 ML IV SCH ×2 (12:30→23:15)
[2020-10-15] MEDS ORDERED: AZITHROMYCIN 250 MG in IV NORMAL SALINE 250ML 250 ML IV SCH (12:30)
[2020-10-15 12:31] VITALS: BP 138/73
[2020-10-15 12:32] VITALS: BP_SYST 145; BP_SYST 147; BP_DIAS 75; BP_DIAS 84
--- NOTE | 2020-10-15 12:33 | EKG ---
[address] [address] Test Date: 2020-10-15 Test Time: 12:04:32 Pat Name: OLIVER PEARSON Department: Room: 113 A Gender: F Broodmare Foreman: : 1970 Requested By: ANGELIQUE PETERSON Order Number: [id number] Reading MD: Measurements Intervals [place] Rate: 92 P: 49 ND: 108 QRS: 41 QRSD: 82 T: 50 QT: 370 QTc: 463 Interpretive Statements SINUS RHYTHM R-S TRANSITION ZONE IN V LEADS DISPLACED TO THE LEFT QRS(T) CONTOUR ABNORMALITY CONSIDER ANTEROLATERAL MYOCARDIAL DAMAGE POSSIBLY ABNORMAL ECG RI6.01 No previous ECG available for comparison
[2020-10-15 12:52] LABS: BGAS PH 7.42 (7.35-7.45)
[2020-10-15] MEDS: ENOXAPARIN 40 MG/0.4 ML SYRINGE. SQ SCH (12:58)
[2020-10-15] MEDS ORDERED: ALBUTEROL SULFATE 8GM INHALER. INH PRN (13:00)
--- NOTE | 2020-10-15 13:05 | NUR ---
NURSING NOTE PER [facility] NO BLOOD CULTURES NEEDED AT THIS TIME. PRN TYLENOL ORDERED FOR HEADACHE. REGINE HOLDER.
[2020-10-15] MEDS ORDERED: ONDANSETRON ODT 4 MG TAB.RAPDIS PO PRN (13:15)
[2020-10-15] MEDS ORDERED: ACETAMINOPHEN 325 MG TABLET PO PRN (13:15)
[2020-10-15] MEDS ORDERED: AZITHROMYCIN 500 MG in IV NORMAL SALINE 250ML 250 ML IV SCH (14:26)
[2020-10-15] MEDS: GABAPENTIN 300 MG CAPSULE. PO SCH (15:29)
[2020-10-15 15:38] VITALS: BP 174/83
--- NOTE | 2020-10-15 16:18 | RAD ---
XR CHEST 2V History: Short of air. Comparison: Chest x-ray 01/10/2020. Technique: PA and lateral chest radiographs. Findings: The lungs are adequately and symmectrically inflated. No airspace consolidation, pleural effusion or pneumothorax. The cardiomediastinal silhoutte and pulmonary vasculature are within normal limits. Sof t tissues and osseous structures are unremarkable. Impression: 1. No acute cardiopulmonary process. Electronically signed by: Michael Chavarria MD (10/15/2020 4:16 PM) [facility]
[2020-10-15] MEDS ORDERED: DEXTROSE 50% 25 GM / 50ML DISP.SYRIN. IV PRN (17:00)
[2020-10-15] MEDS ORDERED: THIAMINE INJ 100 MG in IV NORMAL SALINE 50ML 50 ML IV ONE (17:00)
[2020-10-15] MEDS: INSULIN LISPRO 300 UNITS/3 ML VIAL. SQ SCH (17:13)
[2020-10-15 20:06] VITALS: BP 169/91
[2020-10-15 20:22] LABS: BILIRUBIN,URINE NEG (NEG); CLARITY,URINE CLEAR; COLOR,URINE STRAW; GLUCOSE,URINE >=1000 mg/dL (NEG)
[2020-10-15 20:23] LABS: BACTERIA,URINE 0 /HPF (0-FEW); NITRITE,URINE NEG (NEG); RBC,URINE 0 /HPF (0-2); UROBILINOGEN,URINE 0.2 mg/dL (0.2 mg/dL); WBC,URINE 0 /HPF (0-4)
[2020-10-15 20:24] LABS: SQUAMOUS EPITHELIAL CELL,UR OCC /LPF
[2020-10-15] MEDS: cloNIDine HCL 0.2 MG TABLET PO SCH (20:37)
[2020-10-15] MEDS: INSULIN GLARGINE SYRINGE. SQ SCH (20:44)
[2020-10-15 22:40] VITALS: BP 154/72
[2020-10-15 23:48] LABS: BARBITURATES NEG (NEG); BENZODIAZEPINES NEG (NEG); CANNABINOIDS NEG (NEG); COCAINE NEG (NEG); METHADONE NEG (NEG); OPIATES POS (NEG); PHENCYCLIDINE NEG (NEG)
[2020-10-15 23:49] LABS: AMPHETAMINE/METHAMPHETAMINE NEG (NEG)
[2020-10-16] MEDS: IPRATRPIUM/ALBUTEROL 0.5/2.5MG 3 ML NEBU. NEB SCH ×4 (05:21→20:14)
[2020-10-16 05:47] VITALS: BP 151/91
[2020-10-16] MEDS: INSULIN GLARGINE SYRINGE. SQ SCH ×2 (08:04→21:08)
[2020-10-16] MEDS: INSULIN LISPRO 300 UNITS/3 ML VIAL. SQ SCH ×3 (08:07→17:00)
[2020-10-16] MEDS: PANTOPRAZOLE 40 MG TABLET. PO SCH (08:08)
[2020-10-16] MEDS: GABAPENTIN 300 MG CAPSULE. PO SCH (08:08)
[2020-10-16] MEDS: METOPROLOL SUCC 24HR ER 50 MG TAB.ER.24H. PO SCH (08:08)
[2020-10-16] MEDS: LISINOPRIL 20 MG TABLET PO SCH (08:08)
[2020-10-16] MEDS: cloNIDine HCL 0.2 MG TABLET PO SCH ×2 (08:09→21:10)
[2020-10-16] MEDS: NICOTINE 21MG PATCH. TD SCH (08:09)
[2020-10-16] MEDS: SEMAGLUTIDE 7 MG PO SCH (09:00)
[2020-10-16] MEDS ORDERED: FLU VACC QS 2020-21(6MOS+)/PF 0.5 ML SYRINGE. VAX IM ONE (09:00)
[2020-10-16] MEDS: IV NORMAL SALINE 1,000ML 1,000 ML IV SCH ×2 (09:00→18:30)
[2020-10-16] MEDS ORDERED: MAG HYDROX/AL HYDROX/SIMETH 30 ML ORAL.SUSP PO PRN (09:45)
[2020-10-16] MEDS ORDERED: ACETAMINOPHEN/CODEINE 300/30MG TABLET PO PRN (09:45)
[2020-10-16] MEDS: methylPREDNISolone SOD SUCC PF 40 MG/ML VIAL. IV SCH ×3 (09:45→21:07)
[2020-10-16 10:23] VITALS: BP 166/93
--- NOTE | 2020-10-16 10:36 | NUR ---
MED NOTE-SEMAGLUTIDE NOT GIVEN THIS AM, NON-FORMULARY MEDICATION NOT AVAILABLE.
--- NOTE | 2020-10-16 10:43 | NUR ---
VACCINE NOTE-PT SCHEDULED TO RECEIVE FLU VAX THIS AM. STATES SHE DOESNT WANT IT TODAY, SHE STILL FEELS ACHY AND TIRED. STATES SHE WILL TAKE IT TOMORROW. PHARMACY CONTACTED FOR RESCHEDULE TO TOMORROW AM.
[2020-10-16 11:30] LABS: INFLUENZA A PATIENT NEGATIVE (NEGATIVE); INFLUENZA B PATIENT NEGATIVE (NEGATIVE)
[2020-10-16] MEDS ORDERED: IPRATROPIUM/ALBUTEROL 20/100mcg/INH INHALER. INH SCH (12:00)
[2020-10-16] MEDS ORDERED: AZITHROMYCIN 500 MG in IV NORMAL SALINE 250ML 250 ML IV SCH (13:00)
[2020-10-16] MEDS: ENOXAPARIN 40 MG/0.4 ML SYRINGE. SQ SCH (14:45)
[2020-10-16 14:46] VITALS: BP 157/78
[2020-10-16 19:40] VITALS: BP 162/92
[2020-10-16] MEDS ORDERED: INSULIN LISPRO 300 UNITS/3 ML VIAL. SQ SCH (21:00)
[2020-10-16] MEDS ORDERED: INSULIN GLARGINE SYRINGE. SQ SCH (21:00)
[2020-10-16] MEDS: LACTOBACILLUS RHAMNOSUS GG 1 CAPSULE. PO SCH (21:10)
--- NOTE | 2020-10-16 21:53 | PN ---
DATE: 10/16/2020 SUBJECTIVE: A 50-year-old female came in with increased shortness of breath, difficulty in breathing. The patient is resting fairly comfortably on breathing treatments, placed on Solu-Medrol and aggressive pulmonary toilet. Blood sugars were also being brought down there from the 400. The patient's serology negative for influenza. The patient has been spilling sugar. OBJECTIVE: VITAL SIGNS: Blood pressure 157/70, respiratory rate 20, pulse 86. GENERAL: Afebrile. The patient is not feeling very well, having problems with that of shortness of breath, severe headache ____; otherwise, the patient seems to be resting fairly comfortably. We will go ahead and give her breathing treatments. Continue to monitor her heart rate and blood sugars and adjust medications accordingly. IMPRESSION: Acute exacerbation of chronic obstructive pulmonary disease, asthma-like acute bronchitis, type 2 diabetes, poorly controlled; morbid obesity. ANGELIQUE PETERSON MD DR: MANINDER/mona JOB#: [id number] / [id number]
[2020-10-16 23:45] VITALS: BP 163/88
[2020-10-17] MEDS: IV NORMAL SALINE 1,000ML 1,000 ML IV SCH (04:30)
[2020-10-17 05:26] VITALS: BP 180/110
[2020-10-17] MEDS: IPRATRPIUM/ALBUTEROL 0.5/2.5MG 3 ML NEBU. NEB SCH ×2 (05:34→10:33)
[2020-10-17] MEDS: cloNIDine HCL 0.2 MG TABLET PO SCH ×2 (05:38→08:11)
[2020-10-17] MEDS: methylPREDNISolone SOD SUCC PF 40 MG/ML VIAL. IV SCH (05:39)
[2020-10-17] MEDS: METOPROLOL SUCC 24HR ER 50 MG TAB.ER.24H. PO SCH (05:39)
[2020-10-17] MEDS ORDERED: INSULIN LISPRO 300 UNITS/3 ML VIAL. SQ SCH (08:00)
[2020-10-17] MEDS: PANTOPRAZOLE 40 MG TABLET. PO SCH (08:10)
[2020-10-17] MEDS: GABAPENTIN 300 MG CAPSULE. PO SCH (08:10)
[2020-10-17] MEDS: LISINOPRIL 20 MG TABLET PO SCH (08:10)
[2020-10-17] MEDS: NICOTINE 21MG PATCH. TD SCH (08:10)
[2020-10-17] MEDS: LACTOBACILLUS RHAMNOSUS GG 1 CAPSULE. PO SCH (08:10)
[2020-10-17] MEDS: SEMAGLUTIDE 7 MG PO SCH (08:26)
--- NOTE | 2020-10-17 08:27 | NUR ---
MEDICATION [id number] MED NOT GIVEN AT THIS TIME R/T AVAILABILITY.
[2020-10-17] MEDS ORDERED: MULTIVITAMIN I-VITE TABLET. PO SCH (09:00)
[2020-10-17] MEDS ORDERED: FLU VACC QS 2020-21(6MOS+)/PF 0.5 ML SYRINGE. VAX IM ONE (09:00)
[2020-10-17] MEDS ORDERED: INSULIN GLARGINE SYRINGE. SQ SCH (09:00)
[2020-10-17 09:59] LABS: BASO % 0 % (0-3); EOS % 0 % (0-3); HEMATOCRIT 43.8 % (36.0-47.0); HEMOGLOBIN 14.5 g/dL (12.0-15.5); LYMPH # 0.9 x10^3/uL (1.0-4.8); LYMPH % 9 % (24-48); MEAN CORPUSCULAR HEMOGLOBIN 33 pg (25-35); MEAN CORPUSCULAR HGB CONC 33 g/dL (31-37); MEAN CORPUSCULAR VOLUME 100 fL (79-100); MONO # 0.4 x10^3/uL (0.0-1.1); MONO % 4 % (0-9); NEUT # 9.5 x10^3uL (1.8-7.7); NEUT % 87 % (31-73); PLATELET COUNT 170 x10^3/uL (140-400); RED BLOOD COUNT 4.37 x10^6/uL (3.50-5.40); RED CELL DISTRIBUTION WIDTH 14.1 % (11.5-14.5); WHITE BLOOD COUNT 10.9 x10^3/uL (4.0-11.0)
[2020-10-17] MEDS ORDERED: hydrALAZINE 25 MG TABLET PO SCH (10:00)
[2020-10-17] MEDS ORDERED: CITALOPRAM 20 MG TABLET. PO SCH (10:00)
[2020-10-17 10:17] LABS: CALCIUM 8.8 mg/dL (8.5-10.1); GFR 58.7; POTASSIUM 3.6 mmol/L (3.5-5.1)
[2020-10-17 10:48] VITALS: BP 167/73
[2020-10-17] MEDS ORDERED: Nicotine 21MG Patch TD (10:50)
[2020-10-17] MEDS ORDERED: CITA20TA9 PO (10:50)
[2020-10-17] MEDS ORDERED: PRED-220 PO (10:50)
[2020-10-17] MEDS ORDERED: HYDR-2868 PO (10:50)
[2020-10-17] MEDS ORDERED: VIT1TABL8 PO (10:50)
[2020-10-17] MEDS ORDERED: IPRA3AMP29 NEB (10:50)
[2020-10-17 10:54] VITALS: BP 167/73
--- NOTE | 2020-10-17 11:26 | NUR ---
DISCHARGED TO HOME. IV DISCONTINUED. PT AMBULATES TO DOOR WITH ALL POSSESSIONS.
== END 2020-10-17 11:26 | disposition home or self-care (01) | DRG 191 ==
LOC: 1 SOUTH 10:37
PROVIDERS: ADMIT Family Medicine; ATTEND Family Medicine
DX: J44.0 Chronic obstructive pulmonary disease with (acute) lower respiratory infection (principal); J45.901 Unspecified asthma with (acute) exacerbation; J44.1 Chronic obstructive pulmonary disease with (acute) exacerbation; J20.9 Acute bronchitis, unspecified; E66.01 Morbid (severe) obesity due to excess calories; E11.65 Type 2 diabetes mellitus with hyperglycemia; Z68.39 Body mass index [BMI] 39.0-39.9, adult
CPT/HCPCS: 36415; 71046; 80048; 80053; 80307; 81001; 82010; 82550; 82803; 82947; 83605; 84484; 85025; 85379; 87804; 90471; 90686; 93005; 94640; 99406; G0480; J0456; J0696; J1650; J1815; J2920; J7050; J7030

== ENCOUNTER 2020-11-21 00:17 | Inpatient (IN) | payer OTHER ==
[~2020-11-21] VITALS: Ht 165.1 cm; Wt 113.3 kg
[~2020-11-21 00:17] MED LIST changes: +CITA20TA9 PO; +FLUT1BLS3 IH; +HYDR-2868 PO; +IPRA3AMP29 NEB; +LEVO500T8 PO; +Nicotine 21MG Patch TD; +ONDA4TAB7 PO; +PRED-220 PO; +SEMA7TAB PO; +VIT1TABL8 PO
[2020-11-21 01:15] LABS: BASO # 0.1 x10^3/uL (0.0-0.2); BASO % 1 % (0-3); EOS # 0.1 x10^3/uL (0.0-0.7); EOS % 1 % (0-3); HEMATOCRIT 41.6 % (36.0-47.0); HEMOGLOBIN 13.7 g/dL (12.0-15.5); LYMPH # 2.8 x10^3/uL (1.0-4.8); LYMPH % 24 % (24-48); MEAN CORPUSCULAR HEMOGLOBIN 34 pg (25-35); MEAN CORPUSCULAR HGB CONC 33 g/dL (31-37); MEAN CORPUSCULAR VOLUME 102 fL (79-100); MONO # 0.8 x10^3/uL (0.0-1.1); MONO % 7 % (0-9); NEUT # 7.9 x10^3uL (1.8-7.7); NEUT % 68 % (31-73); PLATELET COUNT 267 x10^3/uL (140-400); RED BLOOD COUNT 4.09 x10^6/uL (3.50-5.40); WHITE BLOOD COUNT 11.7 x10^3/uL (4.0-11.0)
[2020-11-21 01:25] LABS: CALCIUM 8.5 mg/dL (8.5-10.1); CREATININE 1.9 mg/dL (0.6-1.0); POTASSIUM 3.2 mmol/L (3.5-5.1)
[2020-11-21 01:38] LABS: ALBUMIN 2.9 g/dL (3.4-5.0); ALBUMIN/GLOBULIN RATIO 0.8 (1.0-1.7); MAGNESIUM 1.2 mg/dL (1.8-2.4); PHOSPHORUS 3.3 mg/dL (2.6-4.7); TOTAL BILIRUBIN 0.7 mg/dL (0.2-1.0); TOTAL PROTEIN 6.4 g/dL (6.4-8.2)
--- NOTE | 2020-11-21 01:45 | PHYS DOC ---
Past History Past Medical History: Asthma, CHF, COPD, CVA, Diabetes, Hypertension Additional Past Medical Histor: neuropathy Past Surgical History: Tonsillectomy Alcohol Use: Occasionally Drug Use: None General Adult EDM: Chief Complaint: NEAR SYCOPE HPI: HPI: Patient is a 50-year-old female coming in for low blood pressure readings and faintness. Patient states she has not been feeling well since she was discharged from the hospital about a month ago. Patient states she had very low p.o. intake. Complaining of fatigue. Patient states she has a history of hypertension has been compliant on her medications. Has not take any extra doses of her medications. Denies any recent illness or sick contacts. Review of Systems: Review of Systems: All other systems within normal limits except for as noted in the HPI Allergies: Allergies: Allergies Coded Allergies Type Severity Reaction Last Updated Verified No Known Allergies Allergy Unknown 10/25/19 Yes Physical Exam: PE: Constitutional: Well developed, well nourished, no acute distress, non-toxic appearance. [] HENT: Normocephalic, atraumatic, bilateral external ears normal, nose normal. [] Eyes: PERRLA, conjunctiva normal, no discharge. [] Neck: No rigidity, supple, no stridor. [] Cardiovascular: Regular rate and rhythm, brisk cap refill, symmetric radial puls es [] Lungs & Thorax: Non labored symmetric respirations, no tachypnea or respiratory distress [] Abdomen: Soft, nondistended. Skin: Warm, dry, no erythema, no rash. [] Back: Unremarkable Extremities: No deformities, range of motion grossly intact, no lower extremity edema [] Neurologic: Alert and oriented X 3, no focal deficits noted. [] Psychologic: Affect normal, judgement normal, mood normal. [] Current Patient Data: Labs: Laboratory Tests Test 11/21/20 00:39 11/21/20 00:50 Glucose (Fingerstick) 134 mg/dL (70-99) H White Blood Count 11.7 x10^3/uL (4.0-11.0) H Red Blood Count 4.09 x10^6/uL (3.50-5.40) Hemoglobin 13.7 g/dL (12.0-15.5) Hematocrit 41.6 % (36.0-47.0) Mean Corpuscular Volume 102 fL (79-100) H Mean Corpuscular Hemoglobin 34 pg (25-35) Mean Corpuscular Hemoglobin Concent 33 g/dL (31-37) Red Cell Distribution Width 15.0 % (11.5-14.5) H Platelet Count 267 x10^3/uL (140-400) Neutrophils (%) (Auto) 68 % (31-73) Lymphocytes (%) (Auto) 24 % (24-48) Monocytes (%) (Auto) 7 % (0-9) Eosinophils (%) (Auto) 1 % (0-3) Basophils (%) (Auto) 1 % (0-3) Neutrophils # (Auto) 7.9 x10^3uL (1.8-7.7) H Lymphocytes # (Auto) 2.8 x10^3/uL (1.0-4.8) Monocytes # (Auto) 0.8 x10^3/uL (0.0-1.1) Eosinophils # (Auto) 0.1 x10^3/uL (0.0-0.7) Basophils # (Auto) 0.1 x10^3/uL (0.0-0.2) Sodium Level 139 mmol/L (136-145) Potassium Level 3.2 mmol/L (3.5-5.1) L Chloride Level 96 mmol/L (98-107) L Carbon Dioxide Level 25 mmol/L (21-32) Anion Gap 18 (6-14) H Blood Urea Nitrogen 16 mg/dL (7-20) Creatinine 1.9 mg/dL (0.6-1.0) H Estimated GFR (Cockcroft-Gault) 28.0 BUN/Creatinine Ratio 8 (6-20) Glucose Level 124 mg/dL (70-99) H Calcium Level 8.5 mg/dL (8.5-10.1) Phosphorus Level 3.3 mg/dL (2.6-4.7) Magnesium Level 1.2 mg/dL (1.8-2.4) L Total Bilirubin 0.7 mg/dL (0.2-1.0) Aspartate Amino Transferase (AST) 45 U/L (15-37) H Alanine Aminotransferase (ALT) 71 U/L (14-59) H Alkaline Phosphatase 110 U/L (46-116) Troponin I Quantitative < 0.017 ng/mL (0-0.055) MM-Iux-F-Type Natriuretic Peptide 213 pg/mL (0-124) H Total Protein 6.4 g/dL (6.4-8.2) Albumin 2.9 g/dL (3.4-5.0) L Albumin/Globulin Ratio 0.8 (1.0-1.7) L EKG: EKG: Normal sinus rhythm, heart rate 80 bpm, normal axis, no ST elevation or depression, no ectopy. [] Radiology/Procedures: Radiology/Procedures: CT ABDOMEN+PELVIS WO Clinical Indication: Reason: Abd pain Comparison: CT abdomen and pelvis without contrast June 21, 2020. Technique: Helical CT imaging of the abdomen and pelvis is performed without IV or oral contrast. Findings: Evaluation of solid organs and bowel is limited without oral and IV contrast, decreasing sensitivity for detection of pathology. There are a few groundglass nodules in the basilar right lower lobe. There is faint consolidation surrounding a bulla in the right lower lobe, image 13. There is a 5 mm nodule in the left lower lobe, image 17. There is incompletely imaged consolidation in the lingula containing air bronchograms. The cardiac size is normal. There is fatty infiltration of the liver and hepatomegaly. The gallbladder, spleen, pancreas, adrenal glands, abdominal aorta caliber, and kidneys are normal. The stomach is unremarkable. There is no dilated small bowel. The appendix is normal. There is distal colon diverticulosis. There is no colon wall thickening. No abdominal adenopathy or free fluid. The urinary bladder is mostly decompressed, otherwise normal. There is a small left ovary functional cyst measuring 1.6 cm. Right ovary is unremarkable. Uterus is anteverted. No pelvic free fluid. There is disc space narrowing and vacuum disc phenomenon L5/S1. 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 IMPRESSION: 1. Incompletely imaged there is consolidation in the lingula with air bronchograms suggestive of pneumonia or atelectasis. There are a few groundglass nodules in the basilar right lower lobe that may be infectious/inflammatory. 2. Hepatomegaly. Fatty infiltration of the liver. 3. Mild distal colon diverticulosis. XR CHEST 1V Clinical Indication: Reason: hypotension, chest and upper back pain. Comparison: Two-view chest 10/15/2020. Findings: The cardiomediastinal silhouette is normal. Lungs are clear. There is no pneumothorax. No pleural effusion is appreciated. No acute bone abnormality. IMPRESSION: No acute cardiopulmonary process. [] Heart Score: C/O Chest Pain: N/A Risk Factors: Risk Factors: DM, Current or recent (<one month) smoker, HTN, HLP, family history of CAD, obesity. Risk Scores: Score 0 - 3: 2.5% MACE over next 6 weeks - Discharge Home Score 4 - 6: 20.3% MACE over next 6 weeks - Admit for Clinical Observation Score 7 - 10: 72.7% MACE over next 6 weeks - Early Invasive Strategies Course & Med Decision Making: Course & Med Decision Making Pertinent Labs and Imaging studies reviewed. (See chart for details) Labs show a urinary tract infection. Patient is dehydrated with a lactate over 3, and acute kidney injury. Current creatinine is 1.9, previous 1 month ago was 1.0. Patient initially requesting to be discharged as her mother is having surgery tomorrow. But then after discussion patient agrees to admission to monitor kidney function. Nidia Disclaimer: Nidia Disclaimer: This electronic medical record was generated, in whole or in part, using a voice recognition dictation system. Departure Departure: Impression: Primary Impression: AFSHAN (acute kidney injury) Additional Impressions: Dehydration UTI (urinary tract infection) Disposition: ADMITTED INPT THIS HOSP Admitting Physician: Angelique Estrada Condition: STABLE Referrals: ANGELIQUE ESTRADA MD (PCP) RAVINDER AYALA MD Nov 21, 2020 01:45
[2020-11-21 01:59] LABS: BACTERIA,URINE FEW /HPF (0-FEW); BILIRUBIN,URINE LARGE (NEG); CLARITY,URINE HAZY; COLOR,URINE YELLOW; GLUCOSE,URINE NEG (NEG); NITRITE,URINE NEG (NEG); RBC,URINE 0 /HPF (0-2); SQUAMOUS EPITHELIAL CELL,UR FEW /LPF; WBC,URINE >40 /HPF (0-4)
[2020-11-21 02:00] LABS: BARBITURATES NEG (NEG); BENZODIAZEPINES NEG (NEG); CANNABINOIDS NEG (NEG); COCAINE NEG (NEG); METHADONE NEG (NEG); OPIATES NEG (NEG); PHENCYCLIDINE NEG (NEG)
[2020-11-21 02:03] LABS: AMPHETAMINE/METHAMPHETAMINE NEG (NEG)
[2020-11-21] MEDS ORDERED: IV NORMAL SALINE 1,000ML 1,000 ML IV ONE (02:15)
--- NOTE | 2020-11-21 02:27 | RAD ---
XR CHEST 1V Clinical Indication: Reason: hypotension, chest and upper back pain. Comparison: Two-view chest 10/15/2020. Findings: The cardiomediastinal silhouette is normal. Lungs are clear. There is no pneumothorax. No pleural eff usion is appreciated. No acute bone abnormality. IMPRESSION: No acute cardiopulmonary process. Electronically signed by: Bert Tang MD (11/21/2020 2:24 AM) [facility]
--- NOTE | 2020-11-21 03:09 | RAD ---
PQRS Compliance Statement: One or more of the following individualized dose reduction techniques were utilized for this examinat ion: 1. Automated exposure control 2. Adjustment of the mA and/or kV according to patient size 3. Use of iterative reconstruction technique CT ABDOMEN+PELVIS WO Clinical Indication: Reason: Abd pain Comparison: CT abdomen and pelvis without contrast June 21, 2020. Technique: Helical CT imaging of the abdomen and pelvis is performed without IV or oral contrast. Findings: Evaluation of solid organs and bowel is limited without oral and IV contrast, decreasing sensitivity for detection of pathology. There are a few groundglass nodules in the basilar right lower lobe. There is faint consolidation justice rounding a bulla in the right lower lobe, image 13. There is a 5 mm nodule in the left lower lobe, im age 17. There is incompletely imaged consolidation in the lingula containing air bronchograms. The ca rdiac size is normal. There is fatty infiltration of the liver and hepatomegaly. The gallbladder, spleen, pancreas, adrenal glands, abdominal aorta caliber, and kidneys are normal. The stomach is unremarkable. There is no dilated small bowel. The appendix is normal. There is distal colon diverticulosis. There is no colon wall thickening. No abdominal adenopathy or free fluid. The urinary bladder is mostly decompressed, otherwise normal. There is a small left ovary functional cyst measuring 1.6 cm. Right ovary is unremarkable. Uterus is anteverted. No pelvic free fluid. There is disc space narrowing and vacuum disc phenomenon L5/S1. There is left osteitis condensans zuri i. IMPRESSION: 1. Incompletely imaged there is consolidation in the lingula with air bronchograms suggestive of pne umonia or atelectasis. There are a few groundglass nodules in the basilar right lower lobe that may b e infectious/inflammatory. 2. Hepatomegaly. Fatty infiltration of the liver. 3. Mild distal colon diverticulosis. Electronically signed by: Bert Tang MD (11/21/2020 3:07 AM) [facility]
[2020-11-21] MEDS ORDERED: cefTRIAXone SODIUM 1 GM VIAL ONE (03:16)
[2020-11-21] MEDS ORDERED: IV NORMAL SALINE 50ML 50 ML ONE (03:16)
[2020-11-21] MEDS ORDERED: IV NORMAL SALINE 1,000ML 1,000 ML IV SCH (04:45)
[2020-11-21] MEDS ORDERED: ONDANSETRON PF 4 MG/2 ML VIAL. IVP PRN (04:45)
[2020-11-21 05:30] VITALS: BP 107/73
--- NOTE | 2020-11-21 05:30 | NUR ---
Admission Note: Pt transported via EMS from ED to [facility] Room 105. Pt ambulated from cart to bed independently, steady gait observed. VSS. No c/o n/v at this time. Pt continues to c/o back pain. Pt oriented to room, surroundings, unit routines, use of call light, and safety precautions. Admission documentation completed. Will continue to monitor.
[2020-11-21] MEDS ORDERED: INSU100V SQ (05:53)
[2020-11-21] MEDS ORDERED: INSU100I13 SQ (05:53)
[2020-11-21] MEDS: ACETAMINOPHEN 325 MG TABLET PO PRN ×2 (06:09→21:07)
--- NOTE | 2020-11-21 06:25 | EKG ---
[address] [address] Test Date: 2020-11-21 Test Time: 00:54:48 Pat Name: OLIVER PEARSON Department: Room: Gender: F Range Aide: SATNAM: 1970 Requested By: RAVINDER AYALA Order Number: [id number] Reading MD: Measurements Intervals [place] Rate: 88 P: 47 ID: [id number] QRS: 38 QRSD: 82 T: 44 QT: 374 QTc: 456 Interpretive Statements SINUS RHYTHM NORMAL ECG RI6.02 No previous ECG available for comparison
[2020-11-21 10:41] VITALS: BP 95/62
[2020-11-21] MEDS: IPRATRPIUM/ALBUTEROL 0.5/2.5MG 3 ML NEBU. NEB SCH ×3 (12:00→20:22)
[2020-11-21] MEDS ORDERED: ALBUTEROL SULFATE 2.5 MG/3 ML NEBU. INH PRN (12:00)
[2020-11-21] MEDS: IV NORMAL SALINE 1,000ML 1,000 ML IV SCH ×2 (12:00→17:10)
[2020-11-21] MEDS ORDERED: ELECTROLYTE (NON-ICU) PROTOCOL. MC PRN (12:15)
[2020-11-21] MEDS ORDERED: levoFLOXacin 500 MG TABLET PO ONE (12:30)
[2020-11-21] MEDS ORDERED: ONDANSETRON ODT 4 MG TAB.RAPDIS PO PRN (12:45)
[2020-11-21] MEDS ORDERED: THIAMINE INJ 100 MG in IV NORMAL SALINE 50ML 50 ML IV ONE (13:00)
[2020-11-21] MEDS: ENOXAPARIN 40 MG/0.4 ML SYRINGE. SQ SCH ×2 (14:20→23:00)
[2020-11-21] MEDS: CITALOPRAM 20 MG TABLET. PO SCH (14:21)
[2020-11-21] MEDS: GABAPENTIN 300 MG CAPSULE. PO SCH (14:21)
[2020-11-21] MEDS: MORPHINE SULFATE 2 MG/ML DISP.SYRIN. IVP PRN ×2 (14:21→23:25)
[2020-11-21] MEDS: NICOTINE 21MG PATCH. TD SCH (14:22)
--- NOTE | 2020-11-21 15:08 | RAD ---
EXAM: CT Chest without IV contrast INDICATION: Reason: pneumonia? / Spl. Instructions: / History: TECHNIQUE: Multi-detector row CT images were acquired from the thoracic inlet through the upper abdo men without the use of IV contrast. Sagittal and coronal images were acquired from the transaxial yvette a. All CT scans performed at this facility utilize dose optimization techniques as appropriate to the exam, including the following: Automated exposure control and adjustment of the mA and/or KV accordi ng to patient size (this includes techniques or standardized protocols for targeted exams where dose is indication/reason for exam). COMPARISON: Abdomen pelvis CT of the same day, CT pulmonary angiogram of 01/11/2020 FINDINGS: The absence of IV contrast limits evaluation of soft tissue pathology. CARDIOVASCULAR: Unremarkable MEDIASTINUM & MARIALUISA: No adenopathy or masses. LUNGS: Patchy consolidation in the anterior basal segment left lower lobe is present with mild volume loss. It is new from the 2019 comparison exam and is associated with air bronchograms . The rest of the lungs are unremarkable. PLEURAL SPACE: No pleural effusions or pneumothorax. OSSEOUS & SOFT TISSUE: Unremarkable ABDOMEN: Hepatomegaly and hepatic steatosis, which primarily affects the left hepatic lobe.. IMPRESSION: 1. Anterior basal segment left lower lobe consolidation and volume loss with air bronchograms is cons istent with segmental left lower lobe pneumonia. Recommend follow-up to resolution. 2. Hepatic steatosis and hypertrophy of the left hepatic lobe. Electronically signed by: Carlin Rodriguez MD (11/21/2020 3:06 PM) [id number]
[2020-11-21 15:34] VITALS: BP 118/68
--- NOTE | 2020-11-21 15:55 | HP ---
ADMIT DATE: 11/21/2020 HISTORY OF PRESENT ILLNESS: This is one of several admissions for this 50-year-old female, came in with severe nausea, vomiting, abdominal pain, also upper back pain. Pain rated 9/10. She was extremely hypotensive and blood pressure went down to about 60/40. The patient was noted to have elevated lactic acid. Her cardiac enzymes were negative. Because of her extremely low blood pressure and the fact that the patient might be septic, her blood pressure 65/33, respirations 18, pulse 94, temperature 98.9, the patient was admitted to the hospital for further evaluation, possible sepsis, urinary tract infection and possible pneumonia on one scan. We will repeat that per CT of the chest versus a CT of the abdomen and pelvis. ____ PAST MEDICAL HISTORY: Tonsillectomy, CVA, headaches, CHF, hypertension, COPD with CPAP, obesity, hematuria, fibromyalgia, diabetes, liver disease, fatty liver, depression, tobacco abuse, cirrhosis of the liver, alcohol abuse at times. IMMUNIZATIONS: Tetanus and influenza vaccinations are up-to-date. FAMILY HISTORY: Positive for obesity, hypertension, diabetes, depression, angina, cardiovascular disease. ALLERGIES: No known allergies. MEDICATIONS: When she came in include that of DuoNeb treatments, ProAir inhaler, clonidine, hydralazine, metoprolol 50 mg, lisinopril 20, gabapentin, Celexa, Trelegy, Zofran, Prilosec, prednisone, ____, Lantus ____, Humalog insulins, vitamins and nicotine 21 mg patch. SOCIAL HISTORY: The patient at times has had alcohol abuse, heavy drinking and continues to smoke. Has been encouraged numerous times to stop smoking more and the patient is a full code. REVIEW OF SYSTEMS: The patient does have a headache. Denies visual changes. Feels achy all over, had upper back pain 9/10. The patient does have some shortness of breath, coughing. The patient does have nausea and vomiting. Denies any melena, hematochezia, or hematemesis. Diffuse abdominal discomfort. Neurologically, ____ in agony. PHYSICAL EXAMINATION: VITAL SIGNS: As noted above, blood pressure 65/33, respiratory rate 18, pulse 94, afebrile, 92% oxygen saturation. HEENT: The patient's head was atraumatic and normocephalic. Somewhat cushingoid appearance in face with flushing. The patient's eyes were ____. Mouth and throat were normal, dry. NECK: Supple, short. LUNGS: Diminished, coarse breath sounds. CARDIOVASCULAR: Regular sinus rhythm. ABDOMEN: Soft, nontender, no rebounding, no guarding except for diffuse tenderness is noted throughout the abdominal area. No masses noted. EXTREMITIES: No clubbing, cyanosis, nor edema. NEUROLOGIC: The patient is alert and oriented, but talking in agony. The patient's EKG unremarkable. The patient in quite a bit of pain. LABORATORY DATA: Show sodium, potassium 139/3.2. Electrolyte replacement. BUN and creatinine of 16 and 1.9. Lactic acid 3.2 ____. AST and ALT 45 and 71 respectively. Troponin stable. BNP slightly elevated 213. White count 11.7, hemoglobin 13, hematocrit 41, MCV of 102. Drug screen shows ____ alcohol positive. Urine, greater than 40 white blood cells per high powered field. IMPRESSION: Sepsis, urosepsis, hypokalemia, acute on top of chronic renal failure, elevated liver enzymes, hypotension, respiratory distress, morbid obesity, type 2 diabetes, fibromyalgia, intractable pain, nausea, vomiting, dehydration, possible consolidation in the lung. CT scan chest pending. IV antibiotic, Rocephin and oral Levaquin. Cultures pending. Severe protein malnutrition and replace potassium. ANGELIQUE PETERSON MD DR: MANINDER/mona JOB#: [id number] / [id number]
[2020-11-21] MEDS ORDERED: IPRATRPIUM/ALBUTEROL 0.5/2.5MG 3 ML NEBU. NEB SCH (16:00)
[2020-11-21] MEDS: INSULIN LISPRO 300 UNITS/3 ML VIAL. SQ SCH ×2 (16:30→20:11)
[2020-11-21 16:50] LABS: BARBITURATES NEG (NEG); BENZODIAZEPINES NEG (NEG); CANNABINOIDS NEG (NEG); COCAINE NEG (NEG); METHADONE NEG (NEG); OPIATES NEG (NEG); PHENCYCLIDINE NEG (NEG)
[2020-11-21 16:51] LABS: AMPHETAMINE/METHAMPHETAMINE NEG (NEG)
[2020-11-21 19:00] VITALS: BP 92/41
[2020-11-21] MEDS: INSULIN GLARGINE SYRINGE. SQ SCH (20:11)
[2020-11-21] MEDS: BUDESONIDE 0.5 MG/2 ML NEBU NEB SCH (20:22)
[2020-11-21 23:26] VITALS: BP 110/65
--- NOTE | 2020-11-22 03:00 | NUR ---
REPORT RECEIVED FROM REGINE MERRILL. ASSUMED CARE OF PT AT THIS TIME. PT CURRENTLY RESTING COMFORTABLY IN BED. CALL LIGHT IN REACH.
[2020-11-22] MEDS: IV NORMAL SALINE 1,000ML 1,000 ML IV SCH (04:21)
[2020-11-22] MEDS: IPRATRPIUM/ALBUTEROL 0.5/2.5MG 3 ML NEBU. NEB SCH ×4 (05:03→20:47)
[2020-11-22] MEDS ORDERED: levoFLOXacin 250 MG TABLET PO SCH (06:00)
[2020-11-22] MEDS ORDERED: levoFLOXacin 500 MG TABLET PO SCH (06:00)
[2020-11-22 06:01] VITALS: BP 121/65
[2020-11-22] MEDS ORDERED: ACETAMINOPHEN 500 MG TABLET PO PRN (06:15)
[2020-11-22 07:07] LABS: BASO % 1 % (0-3); EOS # 0.1 x10^3/uL (0.0-0.7); EOS % 2 % (0-3); HEMOGLOBIN 11.3 g/dL (12.0-15.5); LYMPH # 1.7 x10^3/uL (1.0-4.8); LYMPH % 25 % (24-48); MEAN CORPUSCULAR HEMOGLOBIN 33 pg (25-35); MEAN CORPUSCULAR HGB CONC 32 g/dL (31-37); MEAN CORPUSCULAR VOLUME 103 fL (79-100); MONO # 0.6 x10^3/uL (0.0-1.1); MONO % 8 % (0-9); NEUT # 4.4 x10^3uL (1.8-7.7); NEUT % 65 % (31-73); PLATELET COUNT 183 x10^3/uL (140-400); RED BLOOD COUNT 3.41 x10^6/uL (3.50-5.40); RED CELL DISTRIBUTION WIDTH 14.8 % (11.5-14.5); WHITE BLOOD COUNT 6.8 x10^3/uL (4.0-11.0)
[2020-11-22 07:11] LABS: CALCIUM 7.6 mg/dL (8.5-10.1); CREATININE 1.1 mg/dL (0.6-1.0); GFR 52.6
[2020-11-22 07:21] LABS: POTASSIUM 2.8 mmol/L (3.5-5.1)
[2020-11-22] MEDS ORDERED: levoFLOXacin 250 MG TABLET PO ONE (07:45)
[2020-11-22] MEDS: INSULIN LISPRO 300 UNITS/3 ML VIAL. SQ SCH ×4 (07:59→21:29)
[2020-11-22] MEDS: LACTOBACILLUS RHAMNOSUS GG 1 CAPSULE. PO SCH ×2 (08:00→21:18)
[2020-11-22] MEDS: GABAPENTIN 300 MG CAPSULE. PO SCH (08:00)
[2020-11-22] MEDS: ENOXAPARIN 40 MG/0.4 ML SYRINGE. SQ SCH ×2 (08:00→21:18)
[2020-11-22] MEDS: CITALOPRAM 20 MG TABLET. PO SCH (08:00)
[2020-11-22] MEDS ORDERED: POTASSIUM CHLORIDE 10MEQ 100 ML IV SCH (08:00)
[2020-11-22] MEDS: PANTOPRAZOLE 40 MG TABLET. PO SCH (08:00)
[2020-11-22] MEDS: NICOTINE 21MG PATCH. TD SCH (08:01)
[2020-11-22] MEDS ORDERED: NON FORMULARY ITEM (Fluticasone/Umeclidin/Vilanter (Trelegy Ellipta 100-62.5-25) 1 EACH) IH SCH (09:00)
[2020-11-22] MEDS: SEMAGLUTIDE 7 MG PO SCH (09:00)
[2020-11-22] MEDS ORDERED: predniSONE 10 MG TABLET PO SCH (09:00)
[2020-11-22] MEDS ORDERED: THIAMINE INJ 100 MG in IV NORMAL SALINE 50ML 50 ML IV ONE (09:15)
[2020-11-22] MEDS: POTASSIUM CHLORIDE 20 MEQ TABLET.ER. PO SCH ×2 (09:54→21:19)
[2020-11-22] MEDS ORDERED: POTASSIUM CHLORIDE 20 MEQ TABLET.ER. PO ONE (11:15)
--- NOTE | 2020-11-22 11:15 | NUR ---
PATIENT HAD LAB RESULT WITH CRITICAL RESULT OF POTASSIUM 2.8, MD NOTIFIED, PATIENT WAS ON NON ICU ELECTROLYTE REPLACEMENT PROTOCOL WITH POTASSIUM IV ORDERED. PATIENT C/O PAIN AROUND IV LINE DURING POTASSIUM IV INFUSION. IV LINE ASSESSED FLUSHED WELL WITH 10ML WITH GOOD BLOOD RETURN. MD NOTIFIED, ORDER OF PO POTASSIUM OBTAINED. WILL CTM.
[2020-11-22] MEDS: BUDESONIDE 0.5 MG/2 ML NEBU NEB SCH ×2 (11:19→20:47)
[2020-11-22 12:49] VITALS: BP 106/67
[2020-11-22] MEDS: ACETAMINOPHEN 325 MG TABLET PO PRN ×2 (15:08→22:45)
[2020-11-22 15:18] VITALS: BP 105/65
[2020-11-22 20:05] VITALS: BP 126/58
[2020-11-22] MEDS: ZOLPIDEM 5 MG TABLET. PO PRN ×2 (21:19→22:45)
[2020-11-22] MEDS: INSULIN GLARGINE SYRINGE. SQ SCH (21:28)
--- NOTE | 2020-11-22 22:24 | PN ---
DATE: SUBJECTIVE: A 50-year-old female in with pneumonia, hypotension, sepsis, and a light hypokalemia, possible alcohol withdrawal, diabetes, seems to be doing a little better this morning. Potassium is low at 2.8, receiving IV antibiotic therapy. IV potassium, may be switched to oral. Feeling better overall. Still short of breath, still needs PT, OT to evaluate her ability. OBJECTIVE: VITAL SIGNS: Blood pressure 120/60, respiratory rate 20, pulse 100, afebrile. GENERAL: The patient is alert and oriented. LUNGS: Diminished throughout, but basically clear. CARDIOVASCULAR: Regular sinus rhythm, S1, S2. ABDOMEN: Protuberant, soft, nontender. EXTREMITIES: No clubbing, cyanosis. Trace edema noted. PLAN: We will The patient will discontinue her fluids. Continue to monitor electrolytes. PT, OT help assist her and make further evaluation on her as appreciated. IMPRESSION: Sepsis, hypotension, hypokalemia, pneumonia, urinary tract infection, nausea, vomiting, dehydration, type 2 diabetes. ANGELIQUE PETERSON MD DR: MANINDER/mona JOB#: [id number] / [id number]
[2020-11-22 23:03] VITALS: BP 107/68
[2020-11-23] MEDS: IPRATRPIUM/ALBUTEROL 0.5/2.5MG 3 ML NEBU. NEB SCH ×4 (05:13→20:09)
[2020-11-23 05:27] VITALS: BP 117/60
[2020-11-23] MEDS ORDERED: levoFLOXacin 500 MG TABLET PO SCH (06:00)
[2020-11-23 06:18] LABS: CALCIUM 7.3 mg/dL (8.5-10.1); CREATININE 0.9 mg/dL (0.6-1.0); GFR 66.3; POTASSIUM 3.1 mmol/L (3.5-5.1)
[2020-11-23] MEDS: NICOTINE 21MG PATCH. TD SCH (07:55)
[2020-11-23] MEDS: ENOXAPARIN 40 MG/0.4 ML SYRINGE. SQ SCH ×2 (07:55→21:30)
[2020-11-23] MEDS: GABAPENTIN 300 MG CAPSULE. PO SCH (07:56)
[2020-11-23] MEDS: CITALOPRAM 20 MG TABLET. PO SCH (07:56)
[2020-11-23] MEDS: PANTOPRAZOLE 40 MG TABLET. PO SCH (07:56)
[2020-11-23] MEDS: THIAMINE 100 MG TABLET. PO SCH (07:56)
[2020-11-23] MEDS: ACETAMINOPHEN 325 MG TABLET PO PRN ×3 (07:56→21:30)
[2020-11-23] MEDS: POTASSIUM CHLORIDE 20 MEQ TABLET.ER. PO SCH ×2 (07:56→21:31)
[2020-11-23] MEDS: LACTOBACILLUS RHAMNOSUS GG 1 CAPSULE. PO SCH ×2 (07:56→21:30)
[2020-11-23] MEDS: SEMAGLUTIDE 7 MG PO SCH (08:00)
[2020-11-23] MEDS: INSULIN LISPRO 300 UNITS/3 ML VIAL. SQ SCH ×4 (08:06→21:33)
[2020-11-23] MEDS: BUDESONIDE 0.5 MG/2 ML NEBU NEB SCH ×2 (09:18→20:09)
[2020-11-23] MEDS ORDERED: FUROSEMIDE 40 MG/4 ML VIAL IVP ONE (10:00)
[2020-11-23 10:20] LABS: BASO # 0.1 x10^3/uL (0.0-0.2); BASO % 1 % (0-3); EOS # 0.1 x10^3/uL (0.0-0.7); EOS % 1 % (0-3); HEMATOCRIT 33.4 % (36.0-47.0); HEMOGLOBIN 10.9 g/dL (12.0-15.5); LYMPH # 1.3 x10^3/uL (1.0-4.8); LYMPH % 20 % (24-48); MEAN CORPUSCULAR HEMOGLOBIN 34 pg (25-35); MEAN CORPUSCULAR HGB CONC 33 g/dL (31-37); MEAN CORPUSCULAR VOLUME 103 fL (79-100); MONO # 0.5 x10^3/uL (0.0-1.1); MONO % 8 % (0-9); NEUT # 4.4 x10^3uL (1.8-7.7); NEUT % 70 % (31-73); PLATELET COUNT 176 x10^3/uL (140-400); RED BLOOD COUNT 3.24 x10^6/uL (3.50-5.40); RED CELL DISTRIBUTION WIDTH 14.9 % (11.5-14.5); WHITE BLOOD COUNT 6.4 x10^3/uL (4.0-11.0)
--- NOTE | 2020-11-23 10:43 | RAD ---
XR CHEST 2V History: Reason: SHORTNESS OF BREATH / Spl. Instructions: / History: Comparison: November 21, 2020 Findings: Increased lingular consolidations. No pleural effusion. No pneumothorax. Normal heart size. Impression: 1. Increased lingular consolidations, concerning for pneumonia. Recommend follow-up to ensure resolu tion. Electronically signed by: Colt Cruz DO (11/23/2020 10:40 AM) [id number]
[2020-11-23 12:52] VITALS: BP 105/67
[2020-11-23] MEDS ORDERED: PIP/TAZO PER PHARMACY MC PRN (13:00)
[2020-11-23] MEDS: AZITHROMYCIN 250 MG TABLET. PO SCH (13:09)
--- NOTE | 2020-11-23 14:50 | EKG ---
[address] [address] Test Date: 2020-11-23 Test Time: 14:32:44 Pat Name: OLIVER PEARSON Department: Room: 105 A Gender: F Stroke Program Coordinator: SATNAM: 1970 Requested By: ANGELIQUE PETERSON Order Number: [id number] Reading MD: Measurements Intervals [place] Rate: 130 P: 36 MO: 106 QRS: 31 QRSD: 84 T: 25 QT: 292 QTc: 436 Interpretive Statements SINUS TACHYCARDIA R-S TRANSITION ZONE IN V LEADS DISPLACED TO THE LEFT LOW LIMB LEAD VOLTAGE NO SPECIFIC ECG ABNORMALITIES RI6.01 No previous ECG available for comparison
[2020-11-23 15:33] VITALS: BP 113/58
[2020-11-23] MEDS: PIPERACILLIN/TAZOBACTAM 3.375 GM in IV NORMAL SALINE 50ML 50 ML IV SCH ×2 (17:19→23:46)
--- NOTE | 2020-11-23 18:39 | NUR ---
Shift Summary Patient had an uneventful shift. Change of antibiotic/plan of care due to no improvement. Patient PRN meds administered for headaches. equipment monitor phototypesetting placed d/t tachycardia.
[2020-11-23 19:29] VITALS: BP 108/68
--- NOTE | 2020-11-23 21:17 | PN ---
DATE: SUBJECTIVE: A 50-year-old female began to have problems late last night with increased wheezing, tightness, running a temperature upwards of 99 degrees, but her heart rate went up as high as 140. Blood pressure 113/58, respiratory rate 22, her oxygen saturation dipped down to room air to 89% and lower. The patient had a repeat chest x-ray, it showed consolidation despite her being on IV antibiotics in the first place. Switched over to Zosyn and azithromycin. White count itself was not significant, 6.4, but still battling her low potassium on electrolyte replacement. Blood sugars are basically stable. The patient continue with IV antibiotic of Zosyn and Zithromax. PHYSICAL EXAMINATION: GENERAL: Otherwise, the patient is alert and oriented. LUNGS: Diminished with expiratory wheezes. CARDIOVASCULAR: Regular sinus rhythm, but tachycardic. ABDOMEN: Soft, protuberant. EXTREMITIES: No clubbing, cyanosis. Trace edema. NEUROLOGIC: Intact. LABORATORY DATA: As discussed above. IMPRESSION: Therefore, pneumonia, sepsis. PLAN: Continue on IV antibiotic therapy with close monitoring and continue with respiratory therapy and make further evaluation on her as indicated and make adjustments as indicated. ANGELIQUE PETERSON MD DR: MANINDER/mona JOB#: [id number] / [id number]
[2020-11-23] MEDS: ZOLPIDEM 5 MG TABLET. PO PRN ×2 (21:30→23:47)
[2020-11-23] MEDS: INSULIN GLARGINE SYRINGE. SQ SCH (21:31)
--- NOTE | 2020-11-23 22:22 | NUR ---
Pt is motivated to go home tomorrow. She requested to remove her nasal cannula and test her oxygen saturation on room air. O2 sat 91-94%, RR 20. Pt resting in bed on room air. Will continue to monitor.
[2020-11-23 23:40] VITALS: BP 99/61
[2020-11-24] MEDS: IPRATRPIUM/ALBUTEROL 0.5/2.5MG 3 ML NEBU. NEB SCH ×4 (05:15→20:00)
[2020-11-24] MEDS: PIPERACILLIN/TAZOBACTAM 3.375 GM in IV NORMAL SALINE 50ML 50 ML IV SCH ×3 (05:45→18:04)
[2020-11-24 05:50] VITALS: BP 135/77
[2020-11-24] MEDS: PANTOPRAZOLE 40 MG TABLET. PO SCH (08:20)
[2020-11-24] MEDS: POTASSIUM CHLORIDE 20 MEQ TABLET.ER. PO SCH ×2 (08:20→21:49)
[2020-11-24] MEDS: NICOTINE 21MG PATCH. TD SCH (08:20)
[2020-11-24] MEDS: LACTOBACILLUS RHAMNOSUS GG 1 CAPSULE. PO SCH ×2 (08:20→21:49)
[2020-11-24] MEDS: AZITHROMYCIN 250 MG TABLET. PO SCH (08:20)
[2020-11-24] MEDS: ENOXAPARIN 40 MG/0.4 ML SYRINGE. SQ SCH ×2 (08:21→21:42)
[2020-11-24] MEDS: GABAPENTIN 300 MG CAPSULE. PO SCH (08:21)
[2020-11-24] MEDS: SEMAGLUTIDE 7 MG PO SCH (08:21)
[2020-11-24] MEDS: THIAMINE 100 MG TABLET. PO SCH (08:21)
[2020-11-24] MEDS: CITALOPRAM 20 MG TABLET. PO SCH (08:21)
[2020-11-24] MEDS: INSULIN LISPRO 300 UNITS/3 ML VIAL. SQ SCH ×5 (08:24→21:48)
[2020-11-24] MEDS: BUDESONIDE 0.5 MG/2 ML NEBU NEB SCH ×2 (11:54→20:00)
--- NOTE | 2020-11-24 11:58 | PN ---
DATE: SUBJECTIVE: A 50-year-old female in with bilateral lobe pneumonia, had been treated with IV antibiotic therapy, but continued to make no progress. As a result of this, the patient was placed on Zosyn and Zithromax, changing those 2 antibiotics. She is improving. Her oxygen saturation has come up to 92% on room air. OBJECTIVE: VITAL SIGNS: Blood pressure 130/70, respiratory rate 20, pulse 100, afebrile. She is feeling better. GENERAL: The patient is alert and oriented. LUNGS: Diminished, primarily in the bases, but improved. CARDIOVASCULAR: Regular sinus rhythm. ABDOMEN: Soft, protuberant. EXTREMITIES: No clubbing, cyanosis or edema. Continue with present drug therapy as this has made a marked consolidation in her lungs. IMPRESSION: Pneumonia of unspecified etiology, community acquired; hypotension; acute respiratory distress. Continue with breathing treatments and IV antibiotic therapy. ANGELIQUE PETERSON MD DR: MANINDER/mona JOB#: [id number] / [id number]
[2020-11-24 17:17] VITALS: BP 111/70
[2020-11-24 20:03] VITALS: BP 118/63
[2020-11-24] MEDS: ZOLPIDEM 5 MG TABLET. PO PRN (21:48)
[2020-11-24] MEDS: ACETAMINOPHEN 325 MG TABLET PO PRN (21:49)
[2020-11-24] MEDS: INSULIN GLARGINE SYRINGE. SQ SCH (22:00)
[2020-11-24] MEDS ORDERED: LORazepam 0.5 MG TABLET PO PRN (22:15)
[2020-11-24 23:41] VITALS: BP 114/64
[2020-11-25] MEDS: PIPERACILLIN/TAZOBACTAM 3.375 GM in IV NORMAL SALINE 50ML 50 ML IV SCH ×3 (00:06→11:26)
[2020-11-25 05:15] VITALS: BP 111/72
[2020-11-25] MEDS: IPRATRPIUM/ALBUTEROL 0.5/2.5MG 3 ML NEBU. NEB SCH ×2 (05:17→11:28)
--- NOTE | 2020-11-25 05:46 | NUR ---
Pt slept most of the night after taking her Ambien followed later by Raymond, for anxiety. She turns in bed, alternating sides periodically. She snores and occasionally a dry cough. Pt had vivid dreams, talking in her sleep and making motions with her hands. Pt undressed herself in her sleep and removed her court recording monitor. Pt did not fully awake when replacing her gown and monitor. Will continue to monitor.
[2020-11-25] MEDS: INSULIN LISPRO 300 UNITS/3 ML VIAL. SQ SCH ×2 (07:30→11:30)
[2020-11-25] MEDS: PANTOPRAZOLE 40 MG TABLET. PO SCH (07:41)
[2020-11-25] MEDS: BUDESONIDE 0.5 MG/2 ML NEBU NEB SCH (07:42)
[2020-11-25] MEDS: GABAPENTIN 300 MG CAPSULE. PO SCH (08:33)
[2020-11-25] MEDS: CITALOPRAM 20 MG TABLET. PO SCH (08:33)
[2020-11-25] MEDS: THIAMINE 100 MG TABLET. PO SCH (08:33)
[2020-11-25] MEDS: SEMAGLUTIDE 7 MG PO SCH (08:33)
[2020-11-25] MEDS: ENOXAPARIN 40 MG/0.4 ML SYRINGE. SQ SCH (08:34)
[2020-11-25] MEDS: LACTOBACILLUS RHAMNOSUS GG 1 CAPSULE. PO SCH (08:34)
[2020-11-25] MEDS: POTASSIUM CHLORIDE 20 MEQ TABLET.ER. PO SCH (08:34)
[2020-11-25] MEDS: AZITHROMYCIN 250 MG TABLET. PO SCH (08:34)
[2020-11-25] MEDS: NICOTINE 21MG PATCH. TD SCH (08:34)
[2020-11-25 11:16] VITALS: BP 129/81
[2020-11-25] MEDS: ALBUTEROL SULFATE 2.5 MG/3 ML NEBU. INH PRN ×2 (11:25→11:26)
[2020-11-25] MEDS ORDERED: CEFD300C PO (11:54)
[2020-11-25] MEDS ORDERED: LORA0.5T21 PO (11:54)
--- NOTE | 2020-11-25 12:49 | NUR ---
Patient discharged per Dr. Estrada. Patient instructions given and understood by patient. Patient prescriptions given to patient and copies made in chart. Patient walked to front door with RN and was placed in private vehicle. Patient stable upon discharge.
--- NOTE | 2020-11-26 10:18 | DS ---
DATE OF DISCHARGE: 11/25/2020 HOSPITAL COURSE: A 50-year-old female brought in with severe shortness of breath. The patient had been extremely ill. Pain level is 9/10, blood pressure dropped to 60/40. The patient was given IV fluid resuscitation and IV antibiotic therapy. She had been initially started on Rocephin and Levaquin; however, the patient was noted to be septic and her temperature began to rise and as a result of that, the patient was switched over to Zosyn and Zithromax. The patient's x-ray actually deteriorated from when she was admitted to a large lower lobe consolidation was noted on a repeat chest x-ray as opposed to the primary her first x-ray, which showed no cardiac process. The patient in turn made good progress with the change in antibiotics. She desaturated while quite ill and as a result of this, the patient received aggressive pulmonary toilet and was made excellent progress as indicated. The patient rebounded and she will be discharged and followed up as an outpatient very carefully. She continued to be advised no smoking, no alcohol use. Other labs that were noted were her hemoglobin had dropped from 13 down to 10.9. Chemistries, she is diabetic and had to be monitored there. Her procalcitonin was elevated consistent with her pneumonia. Magnesium was low at 1.1, needed to be adjusted. Lactic acid was elevated to 3.2. She also had hypokalemia, elevated liver enzymes, AST of 45, ALT of 71. GGTP of 257. Potassium went down as low as 2.8, which was put on electrolyte protocol. IMPRESSION: Sepsis, acute respiratory failure, left lower lobe pneumonia, hypokalemia, hypomagnesemia, type 2 diabetes, morbid obesity, elevated liver enzymes, history of alcohol abuse, tobacco use. PLAN: The patient will continue to be monitored as an outpatient. Continue on respiratory therapy treatments as well as with antibiotics as indicated. ANGELIQUE PETERSON MD DR: MANINDER/mona JOB#: [id number] / [id number]
== END 2020-11-25 12:52 | disposition home or self-care (01) | DRG 871 ==
LOC: ER 00:17 → 1 SOUTH 05:24
PROVIDERS: ADMIT Family Medicine; ATTEND Family Medicine
DX: A41.9 Sepsis, unspecified organism (principal); E43 Unspecified severe protein-calorie malnutrition; J18.9 Pneumonia, unspecified organism; J96.00 Acute respiratory failure, unspecified whether with hypoxia or hypercapnia; I13.0 Hypertensive heart and chronic kidney disease with heart failure and stage 1 through stage 4 chronic kidney disease, or unspecified chronic kidney disease; J44.0 Chronic obstructive pulmonary disease with (acute) lower respiratory infection; N17.9 Acute kidney failure, unspecified; N39.0 Urinary tract infection, site not specified; Z68.41 Body mass index [BMI] 40.0-44.9, adult; E11.22 Type 2 diabetes mellitus with diabetic chronic kidney disease; E66.01 Morbid (severe) obesity due to excess calories; E83.42 Hypomagnesemia; E86.0 Dehydration; E87.6 Hypokalemia; F10.10 Alcohol abuse, uncomplicated; F17.200 Nicotine dependence, unspecified, uncomplicated; I50.9 Heart failure, unspecified; K57.30 Diverticulosis of large intestine without perforation or abscess without bleeding; F32.9 Major depressive disorder, single episode, unspecified; E11.40 Type 2 diabetes mellitus with diabetic neuropathy, unspecified; Y90.9 Presence of alcohol in blood, level not specified; K74.60 Unspecified cirrhosis of liver; K76.0 Fatty (change of) liver, not elsewhere classified; M79.7 Fibromyalgia; N18.9 Chronic kidney disease, unspecified; Z81.8 Family history of other mental and behavioral disorders; Z82.49 Family history of ischemic heart disease and other diseases of the circulatory system; Z83.3 Family history of diabetes mellitus; Z86.73 Personal history of transient ischemic attack (TIA), and cerebral infarction without residual deficits
CPT/HCPCS: 36415; 71045; 71046; 71250; 74176; 80048; 80053; 80307; 81001; 82140; 82947; 82977; 83605; 83735; 83880; 84100; 84145; 84484; 85025; 85379; 87040; 87086; 93005; 94640; 94760; 96361; 96365; 96375; J0696; J1650; J1815; J1940; J2270; J2405; J2543; J3010; J3480; Q0162; 97110; 97116; 97530; 97535; 99285-25; J7030; J7613

== ENCOUNTER 2021-03-10 21:34 | Inpatient (IN) | payer OTHER ==
[~2021-03-10] VITALS: Ht 165.1 cm; Wt 111.8 kg
[~2021-03-10 21:34] MED LIST changes: +CEFD300C PO; +INSU100I13 SQ; +INSU100V SQ; +LORA0.5T21 PO
[2021-03-10] MEDS ORDERED: IPRATRPIUM/ALBUTEROL 0.5/2.5MG 3 ML NEBU. NEB ONE (22:30)
[2021-03-10 22:41] LABS: BASO # 0.1 x10^3/uL (0.0-0.2); BASO % 1 % (0-3); EOS # 0.1 x10^3/uL (0.0-0.7); EOS % 1 % (0-3); HEMATOCRIT 45.3 % (36.0-47.0); HEMOGLOBIN 15.6 g/dL (12.0-15.5); LYMPH # 3.3 x10^3/uL (1.0-4.8); LYMPH % 33 % (24-48); MEAN CORPUSCULAR HEMOGLOBIN 36 pg (25-35); MEAN CORPUSCULAR HGB CONC 34 g/dL (31-37); MEAN CORPUSCULAR VOLUME 105 fL (79-100); MONO # 0.6 x10^3/uL (0.0-1.1); MONO % 6 % (0-9); NEUT % 59 % (31-73); PLATELET COUNT 230 x10^3/uL (140-400); RED BLOOD COUNT 4.33 x10^6/uL (3.50-5.40); RED CELL DISTRIBUTION WIDTH 15.5 % (11.5-14.5); WHITE BLOOD COUNT 10.1 x10^3/uL (4.0-11.0)
[2021-03-10 22:52] LABS: CLARITY,URINE CLEAR; COLOR,URINE YELLOW; GLUCOSE,URINE 250 mg/dL (NEG)
[2021-03-10 22:53] LABS: BILIRUBIN,URINE SMALL (NEG); NITRITE,URINE NEG (NEG)
[2021-03-10 22:54] LABS: BACTERIA,URINE 0 /HPF (0-FEW); RBC,URINE 0 /HPF (0-2); SQUAMOUS EPITHELIAL CELL,UR FEW /LPF
[2021-03-10 22:55] LABS: ALBUMIN/GLOBULIN RATIO 0.8 (1.0-1.7); CALCIUM 8.1 mg/dL (8.5-10.1); CREATININE 0.8 mg/dL (0.6-1.0); GFR 75.9; TOTAL BILIRUBIN 0.3 mg/dL (0.2-1.0); TOTAL PROTEIN 6.9 g/dL (6.4-8.2)
[2021-03-10 23:00] LABS: POTASSIUM 2.5 mmol/L (3.5-5.1)
--- NOTE | 2021-03-10 23:02 | RAD ---
Study: XR CHEST 1V Indication: Cough. Comparison: 11/23/2020 Findings: Improved aeration of the left lung base from the prior. There is persistence of a linear density exte nding to the pleura at the left lower lung. Similar aeration pattern of the right lower lung. No laye ring effusion or pneumothorax. Unchanged cardiomediastinal silhouette. Impression: No lobar consolidation to indicate an organizing pneumonia. Overall the appearance of the lungs have improved from 11/23/2020. A linear density at the left lung base is favored on account of atelectasis. Electronically signed by: DIONNE ROBERTS MD (03/10/2021 11:00 PM) [facility]
--- NOTE | 2021-03-10 23:19 | PHYS DOC ---
Past History Past Medical History: Asthma, CHF, COPD, CVA, Diabetes, Hypertension Additional Past Medical Histor: neuropathy Past Surgical History: Tonsillectomy Alcohol Use: None Drug Use: None Adult General Chief Complaint Chief Complaint: COUGH HPI HPI Patient is a 50-year-old female with a past medical history significant for COPD and asthma who presents with a chief complaint of productive cough. States over the last week to 10 days she has had a productive cough. Review of Systems Review of Systems Review of systems otherwise unremarkable except noted in HPI Current Medications Current Medications Current Medications Medications (Trade) Dose Ordered Sig/Javier Start Time Stop Time Status Last Admin Dose Admin Albuterol/ Ipratropium (Duoneb) 3 ml 1X ONCE 03/10/21 22:30 03/10/21 22:31 DC 03/10/21 22:15 3 ML Allergies Allergies Allergies Coded Allergies Type Severity Reaction Last Updated Verified No Known Allergies Allergy Unknown 10/25/19 Yes Physical Exam Physical Exam Constitutional: Well developed, well nourished, no acute distress, non-toxic appearance. [] HENT: Normocephalic, atraumatic, Eyes: conjunctiva normal, no discharge. [] Neck: Normal range of motion, no tenderness, supple, no stridor. [] Cardiovascular: Sinus tachycardia Lungs & Thorax: Bilateral global rhonchi with end expiratory wheeze Abdomen: soft, no tenderness, no masses, no pulsatile masses. [] Skin: Warm, dry, no erythema, no rash. [] Extremities: No tenderness, ROM intact, no edema. [] Neurologic: Alert and oriented X 3, no focal deficits noted. [] Psychologic: Affect normal, judgement normal, mood normal. [] Current Patient Data Vital Signs Vital Signs Date Time Temp Pulse Resp B/P (MAP) Pulse Ox O2 Delivery O2 Flow Rate FiO2 03/10/21 22:13 97 Room Air Lab Results Laboratory Tests Test 03/10/21 21:40 03/10/21 22:11 03/10/21 22:15 Urine Collection Type Unknown Urine Color Yellow Urine Clarity Clear Urine pH 6.0 Urine Specific [place] 1.025 Urine Protein 30 mg/dl (NEG-TRACE) Urine Glucose (UA) 250 mg/dL (NEG) Urine Ketones (Stick) 40 mg/dL (NEG) Urine Blood Trace (NEG) Urine Nitrite Neg (NEG) Urine Bilirubin Small (NEG) Urine Urobilinogen Dipstick 2.0 mg/dL (0.2 mg/dL) Urine Leukocyte Esterase Neg (NEG) Urine RBC 0 /HPF (0-2) Urine WBC 1-4 /HPF (0-4) Urine Squamous Epithelial Cells Few /LPF Urine Bacteria 0 /HPF (0-FEW) Glucose (Fingerstick) 276 mg/dL (70-99) H White Blood Count 10.1 x10^3/uL (4.0-11.0) Red Blood Count 4.33 x10^6/uL (3.50-5.40) Hemoglobin 15.6 g/dL (12.0-15.5) H Hematocrit 45.3 % (36.0-47.0) Mean Corpuscular Volume 105 fL (79-100) H Mean Corpuscular Hemoglobin 36 pg (25-35) H Mean Corpuscular Hemoglobin Concent 34 g/dL (31-37) Red Cell Distribution Width 15.5 % (11.5-14.5) H Platelet Count 230 x10^3/uL (140-400) Neutrophils (%) (Auto) 59 % (31-73) Lymphocytes (%) (Auto) 33 % (24-48) Monocytes (%) (Auto) 6 % (0-9) Eosinophils (%) (Auto) 1 % (0-3) Basophils (%) (Auto) 1 % (0-3) Neutrophils # (Auto) 6.0 x10^3uL (1.8-7.7) Lymphocytes # (Auto) 3.3 x10^3/uL (1.0-4.8) Monocytes # (Auto) 0.6 x10^3/uL (0.0-1.1) Eosinophils # (Auto) 0.1 x10^3/uL (0.0-0.7) Basophils # (Auto) 0.1 x10^3/uL (0.0-0.2) Sodium Level 141 mmol/L (136-145) Potassium Level 2.5 mmol/L (3.5-5.1) *L Chloride Level 99 mmol/L (98-107) Carbon Dioxide Level 28 mmol/L (21-32) Anion Gap 14 (6-14) Blood Urea Nitrogen 10 mg/dL (7-20) Creatinine 0.8 mg/dL (0.6-1.0) Estimated GFR (Cockcroft-Gault) 75.9 BUN/Creatinine Ratio 13 (6-20) Glucose Level 247 mg/dL (70-99) H Calcium Level 8.1 mg/dL (8.5-10.1) L Total Bilirubin 0.3 mg/dL (0.2-1.0) Aspartate Amino Transferase (AST) 89 U/L (15-37) H Alanine Aminotransferase (ALT) 44 U/L (14-59) Alkaline Phosphatase 165 U/L (46-116) H Total Protein 6.9 g/dL (6.4-8.2) Albumin 3.0 g/dL (3.4-5.0) L Albumin/Globulin Ratio 0.8 (1.0-1.7) L EKG EKG Rate of 122, QRS of 90, QTc of 454, no STEMI [] Radiology/Procedures Radiology/Procedures []dy: XR CHEST 1V Indication: Cough. Comparison: 11/23/2020 Findings: Improved aeration of the left lung base from the prior. There is persistence of a linear density extending to the pleura at the left lower lung. Similar aeration pattern of the right lower lung. No layering effusion or pneumothorax. Unchanged cardiomediastinal silhouette. Impression: No lobar consolidation to indicate an organizing pneumonia. Overall the appearance of the lungs have improved from 11/23/2020. A linear density at the left lung base is favored on account of atelectasis. Electronically signed by: DIONNE ROBERTS MD (03/10/2021 11:00 PM) [facility] Heart Score C/O Chest Pain: No Risk Factors: Risk Factors: DM, Current or recent (<one month) smoker, HTN, HLP, family history of CAD, obesity. Risk Scores: Risk Factors: DM, Current or recent (<one month) smoker, HTN, HLP, family history of CAD, obesity. Course & Med Decision Making Course & Med Decision Making Patient is a 50-year-old female with past medical history significant for COPD and asthma who presents with a week to 10 days of productive cough Vital signs notable for sinus tachycardia, tachypnea and hypoxia to 88 on room air and 96% on 2 L.. Given breathing treatment. Given Zofran and morphine for nausea and pain. Given her nighttime gabapentin for neuropathy. Physical exam noted above. EKG noted above with no STEMI. Troponin normal. Chest x-ray noted above. Given patient's productive cough, new oxygen requirement, tachycar estelle, questionable chest x-ray findings she was started on antibiotics in the emergency department and given steroids for COPD exacerbation most likely secondary to respiratory infection. Covid swab pending. Replaced potassium and magnesium. Urinalysis with no signs of infection and no ketones. Discussed all findings with patient and recommended admission for continued valuation and treatment of the noted. Patient grateful, verbalized understanding and agreed with plan of admission. Dragon Disclaimer Dragon Disclaimer This electronic medical record was generated, in whole or in part, using a voice recognition dictation system. Departure Departure: Impression: Primary Impression: COPD exacerbation Additional Impressions: Hypokalemia Hypomagnesemia Admitting Physician: John Jarrell Condition: IMPROVED Referrals: ANGELIQUE PETERSON MD (PCP) Problem Qualifiers JEF RENE MD Mar 10, 2021 23:19
[2021-03-10] MEDS ORDERED: RINGERS LACTATED IV ONE (23:30)
[2021-03-10] MEDS ORDERED: POTASSIUM CHLORIDE 20 MEQ TABLET.ER. PO ONE (23:45)
[2021-03-10] MEDS ORDERED: DEXAMETHASONE 4 MG TABLET PO ONE (23:45)
[2021-03-10] MEDS ORDERED: DOXYCYCLINE HYCLATE 100 MG TABLET PO ONE (23:45)
[2021-03-11] MEDS ORDERED: MORPHINE SULFATE 4 MG/ML DISP.SYRIN. IV ONE
[2021-03-11] MEDS ORDERED: GABAPENTIN 100 MG CAPSULE. PO ONE
[2021-03-11] MEDS ORDERED: POTASSIUM CHLORIDE 20MEQ 100 ML IV ONE (00:15)
[2021-03-11] MEDS ORDERED: ONDANSETRON PF 4 MG/2 ML VIAL. IVP ONE (00:30)
[2021-03-11] MEDS ORDERED: DEXAMETHASONE SOD PHOS 10 MG/ML VIAL. IV ONE (00:30)
[2021-03-11] MEDS ORDERED: IV NORMAL SALINE 50ML 50 ML ONE (00:45)
[2021-03-11] MEDS ORDERED: cefTRIAXone SODIUM 1 GM VIAL ONE (00:46)
[2021-03-11] MEDS ORDERED: MAGNESIUM SULFATE 2GM 50 ML IV ONE (01:00)
[2021-03-11] MEDS ORDERED: IV NORMAL SALINE 1,000ML 1,000 ML IV SCH ×2 (01:00→06:00)
[2021-03-11] MEDS: POTASSIUM CHLORIDE 10MEQ 100 ML IV SCH ×2 (01:16→03:00)
[2021-03-11 02:21] VITALS: BP 144/64
--- NOTE | 2021-03-11 02:26 | NUR ---
The patient, OLIVER PEARSON, 50 y/o, F admitted by TERESE RICKS MD, was given written information regarding hospital policies, unit procedures and contact persons. Valuables were checked and vitals obtained. Pt is A&Ox4 on 2L NC which she doesnt not use at home. Pt is up ad james in room to toilet. Currently resting in bed. Will continue to monitor.
[2021-03-11 05:08] VITALS: BP 185/84
[2021-03-11] MEDS ORDERED: ONDANSETRON ODT 4 MG TAB.RAPDIS PO PRN (06:30)
--- NOTE | 2021-03-11 06:42 | EKG ---
[address] [address] Test Date: 2021-03-10 Test Time: 23:24:27 Pat Name: OLIVER PEARSON Department: Room: Gender: F Concrete Mason: GE : 1970 Requested By: JEF RENE Order Number: [id number] Reading MD: Measurements Intervals [place] Rate: 122 P: 51 GA: 110 QRS: 55 QRSD: 90 T: 52 QT: 318 QTc: 454 Interpretive Statements SINUS TACHYCARDIA ST & T ABNORMALITY, CONSIDER HIGH LATERAL ISCHEMIA OR LEFT VENTRICULAR STRAIN ABNORMAL ECG RI6.02 No previous ECG available for comparison
[2021-03-11] MEDS ORDERED: ALBUTEROL SULFATE 8GM INHALER. INH PRN (06:45)
[2021-03-11] MEDS ORDERED: PANTOPRAZOLE 40 MG TABLET. PO SCH (07:30)
[2021-03-11] MEDS: IPRATROPIUM/ALBUTEROL 20/100mcg/INH INHALER. INH SCH ×2 (08:47→12:00)
[2021-03-11] MEDS: INSULIN LISPRO 300 UNITS/3 ML VIAL. SQ SCH ×2 (08:55→12:12)
[2021-03-11] MEDS ORDERED: CEFDINIR 300 MG CAPSULE PO SCH (09:00)
[2021-03-11] MEDS ORDERED: NICOTINE 21MG PATCH. TD SCH (09:00)
[2021-03-11] MEDS ORDERED: CITALOPRAM 20 MG TABLET. PO SCH (09:00)
[2021-03-11] MEDS ORDERED: cloNIDine HCL 0.2 MG TABLET PO SCH (09:00)
[2021-03-11] MEDS ORDERED: LISINOPRIL 20 MG TABLET PO SCH (09:00)
[2021-03-11] MEDS ORDERED: GABAPENTIN 300 MG CAPSULE. PO SCH (09:00)
[2021-03-11] MEDS ORDERED: MULTIVITAMIN I-VITE TABLET. PO SCH (09:00)
[2021-03-11] MEDS ORDERED: NON FORMULARY ITEM (Fluticasone/Umeclidin/Vilanter (Trelegy Ellipta 100-62.5-25) 1 EACH) IH SCH (09:00)
[2021-03-11] MEDS ORDERED: hydrALAZINE 25 MG TABLET PO SCH (09:00)
[2021-03-11] MEDS ORDERED: METOPROLOL SUCC 24HR ER 50 MG TAB.ER.24H. PO SCH (09:00)
[2021-03-11] MEDS ORDERED: SEMAGLUTIDE 7 MG PO SCH (09:00)
[2021-03-11] MEDS ORDERED: ELECTROLYTE (NON-ICU) PROTOCOL. MC PRN (09:15)
[2021-03-11 09:33] LABS: CALCIUM 7.8 mg/dL (8.5-10.1); CREATININE 0.7 mg/dL (0.6-1.0); GFR 88.6; POTASSIUM 3.7 mmol/L (3.5-5.1)
[2021-03-11 11:59] VITALS: BP 111/66
[2021-03-11] MEDS ORDERED: methylPREDNISolone SOD SUCC PF 40 MG/ML VIAL. IV SCH (14:00)
[2021-03-11 16:14] VITALS: BP 126/67
[2021-03-11] MEDS ORDERED: AZIT250T PO (16:59)
[2021-03-11] MEDS ORDERED: METH4TAB2 PO (17:00)
--- NOTE | 2021-03-11 17:27 | NUR ---
DISCHARGE PT COVID TEST NEGATIVE, PT REQUESTS TO DC HOME R/T FAMILY SITUATION. DR PETERSON CONTACTED, ET ORDER FOR DC ET DC MEDICATIONS REC'D. NECESSARY MEDS CALLED IN TO [facility] PER PT REQUEST. IV SITES DC'D. DISCHARGE INFORMATION REVIEWED WITH PT ET PERTINENT QUESTIONS ANSWERED. SHE AMBULATED TO FRONT DOOR FOR DISCHARGE.
--- NOTE | 2021-03-11 19:49 | HP ---
SHORT STAY SUMMARY HISTORY OF PRESENT ILLNESS: A 50-year-old female who came in through the Emergency Room. The patient has been having problems with breathing and with productive cough. The patient also was noted to have an extremely low potassium of 2.5. The patient was admitted for her breathing problems as well as her hypokalemia. PAST MEDICAL HISTORY: Includes had a stroke in 2019, peripheral neuropathy, CHF, hypertension, COPD, sleep apnea, obesity, hematuria, urinary urgency, fibromyalgia, arthritis, endocrine disorders, diabetes, fatty liver, depression, cirrhosis of the liver. Immunizations for tetanus, influenza up to date. FAMILY HISTORY: Positive for obesity, hypertension, diabetes, depression, stroke and angina. ALLERGIES: There was no known allergies. SOCIAL HISTORY: The patient has a 30-40 pack year history of smoking. Does have history of binge alcohol drinking or drug use. The patient is a full code. REVIEW OF SYSTEMS: The patient denies any headaches, visual change, blurred vision, double vision. Denies any melena, hematochezia, hematemesis. Neurologically, the patient is alert and oriented, stable there. PHYSICAL EXAMINATION: GENERAL: This is a pleasant white female, somewhat short of breath. VITAL SIGNS: Blood pressure did go up to 185/84, respiratory rate 22, pulse 104 and afebrile. The patient is on 2 liters at 94%, originally was up at just 90% on room air at rest; however, did improve somewhat and may need to be on chronic oxygen. She was also tachycardic with rates up to 124. HEENT: Head is atraumatic and normocephalic. Eyes: PERRLA without jaundice. The mouth and throat were normal. NECK: Supple, without JVD or thyromegaly. LUNGS: Diminished throughout, poor movement of air. CVR: Regular sinus rhythm. S1 and S2. Tachycardic. ABDOMEN: Soft, nontender. No rebound or guarding. Positive bowel sounds. No hepatosplenomegaly was noted. EXTREMITIES: No clubbing, cyanosis. Trace edema was noted. NEUROLOGIC: The patient was alert and oriented x3. Speech fluent, spontaneous, appropriate. IMAGING STUDIES: The patient's EKG did show sinus tachycardia, some ST segment abnormalities, but otherwise basically unremarkable there. LABORATORY DATA: White count 10, hemoglobin 15, hematocrit 45, MCV elevated at 105. The patient's blood sugars are also markedly elevated and needs to be under better control. Her potassium did go from 2.5-3.7 and blood sugars are being monitored on a sliding scale as well as regular insulin before meals. The patient's SARS negative. The patient made good progress. Potassium was noted came up. Blood sugars are being monitored and she needs to do a better job monitoring these at home given sliding scale, breathing treatments, Zithromax as an outpatient. Continue to monitor blood pressure, pulse rates, blood sugars as an outpatient. The patient in the past has been somewhat noncompliant. We will continue to monitor her accordingly. IMPRESSION: Hypokalemia, hypertensive urgency, type 2 diabetes poorly controlled, obesity, ____, moderate protein malnutrition, low magnesium of 1.7. We will continue to monitor the patient as an outpatient and make further evaluation on her as indicated as an outpatient. MANINDER/MARELY DR: Jurgen TID: [id number]
[2021-03-11] MEDS ORDERED: INSULIN GLARGINE SYRINGE. SQ SCH (21:00)
--- NOTE | 2021-03-12 21:45 | DS ---
HOSPITAL COURSE: The patient is a 50-year-old female came in with extremely low potassium in the 2.5 range. The patient was having trouble breathing with exacerbation of her COPD, probably related to allergies and the like. The patient was replaced with her potassium. She also had some hypertensive urgency and was adjusted on her medications for that with moderate protein malnutrition as well. The patient made good progress overall. She was discharged home. Blood pressure came down to 126/67, respiration 18, pulse 75. Her potassium came up into the 3.7 range. Blood sugars are also being monitored and need to be adjusted accordingly on a diabetic diet and make further evaluation on her at home. IMPRESSION: Severe hypokalemia, exacerbation of chronic obstructive pulmonary disease with probably related to allergies, type 2 diabetes poorly controlled, morbid obesity, moderate protein malnutrition. Continue to monitor patient accordingly and make further evaluation on her as indicated. CHRISTOPEHR DR: Jurgen TID: [id number]
== END 2021-03-11 17:29 | disposition home or self-care (01) | DRG 641 ==
LOC: ER 21:34 → 1 SOUTH 03-11 02:00
PROVIDERS: ADMIT Internal Medicine; ATTEND Family Medicine
DX: E87.6 Hypokalemia (principal); J44.1 Chronic obstructive pulmonary disease with (acute) exacerbation; E44.0 Moderate protein-calorie malnutrition; Z68.41 Body mass index [BMI] 40.0-44.9, adult; J30.2 Other seasonal allergic rhinitis; I16.0 Hypertensive urgency; E66.01 Morbid (severe) obesity due to excess calories; F32.9 Major depressive disorder, single episode, unspecified; M19.90 Unspecified osteoarthritis, unspecified site; Z82.49 Family history of ischemic heart disease and other diseases of the circulatory system; Z82.3 Family history of stroke; Z83.3 Family history of diabetes mellitus; M79.7 Fibromyalgia; Z87.891 Personal history of nicotine dependence; Z81.8 Family history of other mental and behavioral disorders; I50.9 Heart failure, unspecified; I11.0 Hypertensive heart disease with heart failure; Z86.73 Personal history of transient ischemic attack (TIA), and cerebral infarction without residual deficits; E11.42 Type 2 diabetes mellitus with diabetic polyneuropathy; E83.42 Hypomagnesemia; Z20.822 Contact with and (suspected) exposure to COVID-19
CPT/HCPCS: 36415; 71045; 80048; 80053; 81001; 82947; 83735; 84484; 85025; 93005; 94640; 96361; 96365; 96368; 96375; J0696; J1100; J1815; J2270; J2405; J3475; J3480; J7120; J8540; U0003; 97530; 97535; 99285-25; J7030

== ENCOUNTER 2021-03-19 19:06 | Inpatient (IN) | payer OTHER ==
[~2021-03-19] VITALS: Ht 165.1 cm; Wt 114.0 kg
[~2021-03-19 19:06] MED LIST changes: +METH4TAB2 PO
[2021-03-19] MEDS ORDERED: DEXAMETHASONE SOD PHOS 10 MG/ML VIAL. IVP ONE (19:30)
[2021-03-19] MEDS ORDERED: IV NORMAL SALINE 1,000ML 1,000 ML IV ONE ×2 (19:30→22:15)
--- NOTE | 2021-03-19 20:26 | RAD ---
Chest AP portable at 1949: Reason for examination: Short of breath with cough and congestion. Comparison is made to previous study dated 03/10/2021. The heart size is normal. Mediastinum is unremarkable. Lung bell are clear. No acute bony abnormali ties are seen. Impression: No acute cardiopulmonary disease. Electronically signed by: Esther Varela MD (03/19/2021 8:23 PM) [facility]
--- NOTE | 2021-03-19 20:27 | PHYS DOC ---
Past History Past Medical History: Asthma, CHF, COPD, CVA, Diabetes, Hypertension Additional Past Medical Histor: neuropathy Past Surgical History: Tonsillectomy Alcohol Use: None Drug Use: None General Adult EDM: Chief Complaint: SHORTNESS OF BREATH HPI: HPI: Patient is a 50-year-old female who presents with cough, shortness of breath, fever. Patient states "I was diagnosed with Covid on and feel like it progressively gotten worse". "All 5 people my family have it". "I have not gotten my vaccine because my daughter got Guillain-[place] after her Covid vaccine and is still paralyzed" patient reports she has been using breathing treatments at home with little relief. Patient took Tylenol at 1800. Afebrile. History of asthma, COPD, hypertension, diabetes. Review of Systems: Review of Systems: Constitutional: Reports fever and chills Eyes: Denies change in visual acuity HENT: Reports nasal congestion, denies sore throat Respiratory: Reports cough and shortness of breath Cardiovascular: Denies chest pain or edema GI: Denies abdominal pain, nausea, vomiting, bloody stools or diarrhea : Denies dysuria Musculoskeletal: Denies back pain or joint pain Integument: Denies rash Neurologic: Denies headache, focal weakness or sensory changes Endocrine: Denies polyuria or polydipsia Lymphatic: Denies swollen glands Psychiatric: Denies depression or anxiety Current Medications: Current Meds: Current Medications Medications (Trade) Dose Ordered Sig/Javier Start Time Stop Time Status Last Admin Dose Admin Albuterol Sulfate (Ventolin Hfa Inhaler) 1 puff 1X ONCE 03/19/21 20:30 03/19/21 20:31 UNV Dexamethasone Sodium Phosphate (Decadron) 10 mg 1X ONCE 03/19/21 19:30 03/19/21 19:31 DC Ibuprofen (Motrin) 600 mg 1X ONCE 03/19/21 20:30 03/19/21 20:31 UNV Sodium Chloride 1,000 ml @ 1,000 mls/hr 1X ONCE 03/19/21 19:30 03/19/21 20:29 Allergies: Allergies: Allergies Coded Allergies Type Severity Reaction Last Updated Verified No Known Allergies Allergy Unknown 10/25/19 Yes Physical Exam: PE: Constitutional: Well developed, well nourished, no acute distress, non-toxic appearance. [] HENT: Normocephalic, atraumatic, bilateral external ears normal, oropharynx m oist, no oral exudates, nose normal. [] Eyes: PERRLA, EOMI, conjunctiva normal, no discharge. [] Neck: Normal range of motion, no tenderness, supple, no stridor. [] Cardiovascular: Sinus tachycardia Lungs & Thorax: Wheezing throughout Abdomen: Bowel sounds normal, soft, no tenderness, no masses, no pulsatile masses. [] Skin: Warm, dry, no erythema, no rash. [] Back: No tenderness, no CVA tenderness. [] Extremities: No tenderness, no cyanosis, no clubbing, ROM intact, no edema. [] Neurologic: Alert and oriented X 3, normal motor function, normal sensory function, no focal deficits noted. [] Psychologic: Affect normal, judgement normal, mood normal. [] Current Patient Data: Vital Signs: Vital Signs Date Time Temp Pulse Resp B/P (MAP) Pulse Ox O2 Delivery O2 Flow Rate FiO2 03/19/21 19:36 98.4 125 20 125/80 96 Nasal Cannula 2.0 EKG: EKG: [] Radiology/Procedures: Radiology/Procedures: []Chest AP portable at 1949: Reason for examination: Short of breath with cough and congestion. Comparison is made to previous study dated 03/10/2021. The heart size is normal. Mediastinum is unremarkable. Lung bell are clear. No acute bony abnormalities are seen. Impression: No acute cardiopulmonary disease. Electronically signed by: Esther Varela MD (03/19/2021 8:23 PM) [facility] Heart Score: C/O Chest Pain: No Risk Factors: Risk Factors: DM, Current or recent (<one month) smoker, HTN, HLP, family histo ry of CAD, obesity. Risk Scores: Score 0 - 3: 2.5% MACE over next 6 weeks - Discharge Home Score 4 - 6: 20.3% MACE over next 6 weeks - Admit for Clinical Observation Score 7 - 10: 72.7% MACE over next 6 weeks - Early Invasive Strategies Course & Med Decision Making: Course & Med Decision Making Pertinent Labs and Imaging studies reviewed. (See chart for details) [] 50-year-old female presents with cough, shortness of breath and fever. Patient was diagnosed with Covid on . Patient is afebrile in the ER. Patient is hypoxic. Patient is retaining mid to high 80s on room air. Patient placed on 2 L nasal cannula and has been maintaining mid 90s. Chest x-ray is unremarkable. D-dimer is 0.41. No indication for CTA. Potassium 2.7. Patient given 40 mEq of a potassium. Magnesium of 1.5. Patient given 2 g of magnesium IV. Lactic 3.1. Patient given 2 L bolus normal saline. AST 212, ALT 71. Troponin is negative. Spoke with Dr. Jean Baptiste who will be accepting patient. Discussed results and admission plan with patient. Patient is okay with admission plan. Patient is currently on 2 L nasal cannula. Patient given Rocephin and Zithromax prior to admission. Nidia Disclaimer: Nidia Disclaimer: This electronic medical record was generated, in whole or in part, using a voice recognition dictation system. Departure Departure: Impression: Primary Impression: COVID-19 Additional Impression: Hypoxic Disposition: HOME / SELF CARE / HOMELESS Condition: STABLE Referrals: ANGELIQUE PETERSON MD (PCP) LINDA FARIAS APRN Mar 19, 2021 20:27
[2021-03-19] MEDS ORDERED: IBUPROFEN 600 MG TABLET. PO ONE (20:30)
[2021-03-19] MEDS ORDERED: ALBUTEROL SULFATE 8GM INHALER. INH ONE (20:30)
[2021-03-19 20:42] LABS: BASO % 1 % (0-3); EOS % 1 % (0-3); HEMATOCRIT 46.5 % (36.0-47.0); HEMOGLOBIN 15.6 g/dL (12.0-15.5); LYMPH # 1.8 x10^3/uL (1.0-4.8); LYMPH % 36 % (24-48); MEAN CORPUSCULAR HEMOGLOBIN 35 pg (25-35); MEAN CORPUSCULAR HGB CONC 34 g/dL (31-37); MEAN CORPUSCULAR VOLUME 105 fL (79-100); MONO # 0.4 x10^3/uL (0.0-1.1); MONO % 9 % (0-9); NEUT # 2.7 x10^3uL (1.8-7.7); NEUT % 54 % (31-73); PLATELET COUNT 171 x10^3/uL (140-400); RED BLOOD COUNT 4.45 x10^6/uL (3.50-5.40); RED CELL DISTRIBUTION WIDTH 16.1 % (11.5-14.5)
[2021-03-19 20:48] LABS: ALBUMIN 2.8 g/dL (3.4-5.0); ALBUMIN/GLOBULIN RATIO 0.8 (1.0-1.7); C REACTIVE PROTEIN 26.1 mg/L (0-3.3); CALCIUM 7.5 mg/dL (8.5-10.1); CREATININE 0.6 mg/dL (0.6-1.0); GFR 105.8; TOTAL BILIRUBIN 0.4 mg/dL (0.2-1.0); TOTAL PROTEIN 6.1 g/dL (6.4-8.2)
[2021-03-19 20:55] LABS: POTASSIUM 2.7 mmol/L (3.5-5.1)
[2021-03-19] MEDS ORDERED: POTASSIUM CHLORIDE 20 MEQ TABLET.ER. PO ONE (21:15)
[2021-03-19] MEDS ORDERED: MAGNESIUM SULFATE 2GM 50 ML IV ONE (22:00)
[2021-03-19] MEDS ORDERED: IV NORMAL SALINE 250ML 250 ML ONE (22:27)
[2021-03-19] MEDS ORDERED: AZITHROMYCIN 500 MG VIAL. IV ONE (22:27)
[2021-03-19] MEDS ORDERED: cefTRIAXone SODIUM 1 GM VIAL ONE (22:27)
[2021-03-19] MEDS ORDERED: IV NORMAL SALINE 50ML 50 ML ONE (22:27)
[2021-03-19] MEDS ORDERED: AZITHROMYCIN 500 MG in IV NORMAL SALINE 250ML 250 ML IV ONE (22:30)
[2021-03-20] VITALS (7 sets, daily range): BP systolic 70–166; BP diastolic 48–92
[2021-03-20] MEDS ORDERED: GABAPENTIN 300 MG CAPSULE. PO ONE (01:07)
[2021-03-20] MEDS: GABAPENTIN 300 MG CAPSULE. PO SCH ×2 (01:10→17:39)
--- NOTE | 2021-03-20 05:46 | EKG ---
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
[2021-03-20] MEDS ORDERED: REMDESIVIR LOAD in IV NORMAL SALINE 250ML TV IV ONE ×2 (07:00→08:00)
[2021-03-20] MEDS ORDERED: IPRATRPIUM/ALBUTEROL 0.5/2.5MG 3 ML NEBU. NEB SCH ×2 (08:00→20:00)
[2021-03-20] MEDS: ENOXAPARIN 40 MG/0.4 ML SYRINGE. SQ SCH ×2 (08:05→20:41)
[2021-03-20] MEDS: MAGNESIUM CHLORIDE ER 64 MG TABLET.ER PO SCH (09:48)
[2021-03-20] MEDS ORDERED: IV NORMAL SALINE 1,000ML 1,000 ML IV STA ×2 (10:24→11:15)
[2021-03-20] MEDS ORDERED: ACETAMINOPHEN 325 MG TABLET PO PRN (10:45)
[2021-03-20] MEDS ORDERED: DEXTROSE 50% 25 GM / 50ML DISP.SYRIN. IV PRN (11:30)
[2021-03-20 11:36] LABS: CALCIUM 7.6 mg/dL (8.5-10.1); CREATININE 0.7 mg/dL (0.6-1.0); GFR 88.6
[2021-03-20] MEDS: INSULIN LISPRO 300 UNITS/3 ML VIAL. SQ SCH ×2 (11:49→17:46)
[2021-03-20] MEDS: DEXAMETHASONE SOD PHOS 10 MG/ML VIAL. IV SCH ×2 (12:44→20:41)
[2021-03-20] MEDS: IV NORMAL SALINE 1,000ML 1,000 ML IV SCH (12:44)
[2021-03-20] MEDS: IPRATROPIUM/ALBUTEROL 20/100mcg/INH INHALER. INH SCH ×3 (12:44→20:42)
[2021-03-20] MEDS: FLUTICASONE/VILANTEROL 100/25 INHALER. INH SCH (17:38)
[2021-03-20] MEDS: NICOTINE 21MG PATCH. TD SCH (17:38)
[2021-03-20] MEDS: cloNIDine HCL 0.2 MG TABLET PO SCH (17:39)
[2021-03-20] MEDS: CITALOPRAM 20 MG TABLET. PO SCH (17:39)
[2021-03-20] MEDS: LISINOPRIL 20 MG TABLET PO SCH (17:39)
[2021-03-20] MEDS: hydrALAZINE 25 MG TABLET PO SCH ×2 (17:40→20:41)
--- NOTE | 2021-03-20 19:48 | HP ---
HISTORY OF PRESENT ILLNESS: A 50-year-old female who has been diagnosed with COVID-19 as an outpatient, became increasingly short of breath, increasing pain throughout. The patient was extremely short of breath and has her oxygen saturation dropping down into the low 80s and possibly even to the 70 percentile. The patient is apparently short of breath. She came in through the Emergency Room, she was found to be in acute respiratory distress. The patient was admitted for further treatment of her COVID-19, acute respiratory syndrome. The patient has multiple medical history including history of stroke in 2019, peripheral neuropathy from type 2 diabetes, congestive heart failure, hypercholesterolemia, sleep apnea without CPAP, morbid obesity, hematuria, urinary urgency, fibromyalgia, arthritis, fatty liver, depression, cirrhosis of the liver, alcohol abuse at times. Immunizations for tetanus, up to date. ALLERGIES: The patient has no known allergies. SOCIAL HISTORY: The patient has a history of binge drinking and hard drinking and otherwise no hard drug use. The patient is a full code. FAMILY HISTORY: Positive for apnea, hypertension, diabetes, depression, stroke and angina and daughter recently had Guillain-[place] syndrome, possibly from her immunization is a possibility. REVIEW OF SYSTEMS: Increased pain throughout, increased shortness of breath throughout with minimal exertion. Neurologically, the patient was alert and oriented. Otherwise, the patient denies chest pain. Does have shortness of breath, however. Does have some nausea, but no vomiting. Denies any melena, hematochezia, hematemesis and neurologically outside of her extreme pain is baseline. PHYSICAL EXAMINATION: VITAL SIGNS: Blood pressure that of 125/80, although it did drop down to 70/40 earlier today and 2 liters were given to her, respiratory rate 24, pulse upwards of 120-130. She is afebrile, 2 liters at 96, although did drop down into the low 90s, 91-92% even with 2 liters. The patient's blood pressure presently elevated at after 2 liters of fluid. GENERAL APPEARANCE: This is a critically ill patient. The patient is alert and oriented, but in pain throughout. HEENT: Head atraumatic, normocephalic. Eyes: PERRLA without jaundice. The mouth and throat were normal with poor dentition. NECK: Supple without JVD, carotid bruit or thyromegaly. LUNGS: Diminished throughout, poor movement of air. HEART: Regular sinus rhythm. S1, S2. Tachy. ABDOMEN: Soft, nontender. No rebounding, no guarding. Positive bowel sounds, no hepatosplenomegaly was noted, but protuberant abdomen. EXTREMITIES: Without clubbing, cyanosis. Trace edema. Multiple joint pain. LABORATORY DATA: EKG shows sinus tachycardia with some ST abnormalities, but nothing acute there. The patient's labs, the CBC was pretty much unremarkable. MCV was elevated at 105. Sodium, potassium 140 and 4.0, . Blood sugars in the low 300s on sliding scale. Lactic acid up to 3.3, calcium low at 7.6, but also has severe low albumin of 2.8. C-reactive protein 26. Liver enzymes elevated, AST 212, ALT 71, alkaline phosphatase 202. Lactate dehydrogenase, LDH at 308. Magnesium was low at 1.5 and potassium was low at 2.7. The patient was placed in the hospital for further evaluation acute respiratory failure secondary to COVID-19; hypokalemia; elevated lactic acid; sepsis, probably from the viral infection; type 2 diabetes, poorly controlled; morbid obesity; elevated liver enzymes and severe protein malnutrition. Aggressive therapy along with remdesivir is indicated and make further evaluation on her as we proceed. MANINDER/AUDREY/LISA BAKER: MANINDER/mona TID: [id number]
[2021-03-20] MEDS: ACETAMINOPHEN/CODEINE 300/30MG TABLET PO PRN (20:40)
[2021-03-20] MEDS: METOPROLOL TART IMMED RELEASE 50 MG TABLET PO SCH (20:40)
[2021-03-20] MEDS ORDERED: NON FORMULARY ITEM (Gabapentin 600 MG) PO SCH (21:00)
[2021-03-21 01:10] VITALS: BP 145/76
[2021-03-21] MEDS: IV NORMAL SALINE 1,000ML 1,000 ML IV SCH ×2 (01:14→17:25)
[2021-03-21] MEDS: DEXAMETHASONE SOD PHOS 10 MG/ML VIAL. IV SCH ×3 (06:15→21:05)
[2021-03-21 06:37] VITALS: BP 158/78
[2021-03-21 07:19] LABS: BASO % 0 % (0-3); EOS % 0 % (0-3); HEMOGLOBIN 14.5 g/dL (12.0-15.5); LYMPH # 0.7 x10^3/uL (1.0-4.8); LYMPH % 11 % (24-48); MEAN CORPUSCULAR HEMOGLOBIN 35 pg (25-35); MEAN CORPUSCULAR HGB CONC 33 g/dL (31-37); MEAN CORPUSCULAR VOLUME 107 fL (79-100); MONO # 0.3 x10^3/uL (0.0-1.1); MONO % 5 % (0-9); NEUT # 5.6 x10^3uL (1.8-7.7); NEUT % 85 % (31-73); PLATELET COUNT 123 x10^3/uL (140-400); RED BLOOD COUNT 4.13 x10^6/uL (3.50-5.40); RED CELL DISTRIBUTION WIDTH 15.9 % (11.5-14.5); WHITE BLOOD COUNT 6.6 x10^3/uL (4.0-11.0)
[2021-03-21 07:26] LABS: CALCIUM 7.4 mg/dL (8.5-10.1); CREATININE 0.7 mg/dL (0.6-1.0); GFR 88.6; POTASSIUM 3.8 mmol/L (3.5-5.1)
[2021-03-21] MEDS ORDERED: REMDESIVIR 100mg in NORMAL SALINE 250ML X 4 DAYS IV SCH (07:30)
[2021-03-21] MEDS: ENOXAPARIN 40 MG/0.4 ML SYRINGE. SQ SCH ×2 (08:12→21:07)
[2021-03-21] MEDS: METOPROLOL TART IMMED RELEASE 50 MG TABLET PO SCH ×3 (08:13→21:06)
[2021-03-21] MEDS: LISINOPRIL 20 MG TABLET PO SCH (08:13)
[2021-03-21] MEDS: hydrALAZINE 25 MG TABLET PO SCH ×3 (08:14→21:04)
[2021-03-21] MEDS: IPRATROPIUM/ALBUTEROL 20/100mcg/INH INHALER. INH SCH ×4 (08:14→21:04)
[2021-03-21] MEDS: MAGNESIUM CHLORIDE ER 64 MG TABLET.ER PO SCH (08:14)
[2021-03-21] MEDS: GABAPENTIN 300 MG CAPSULE. PO SCH ×3 (08:14→21:04)
[2021-03-21] MEDS: FLUTICASONE/VILANTEROL 100/25 INHALER. INH SCH (08:14)
[2021-03-21] MEDS: PANTOPRAZOLE 40 MG TABLET. PO SCH (08:14)
[2021-03-21] MEDS: CITALOPRAM 20 MG TABLET. PO SCH (08:14)
[2021-03-21] MEDS: cloNIDine HCL 0.2 MG TABLET PO SCH ×2 (08:14→21:04)
[2021-03-21] MEDS: REMDESIVIR 100mg in NORMAL SALINE 250ML X 4 DAYS IV SCH (08:16)
[2021-03-21] MEDS: INSULIN LISPRO 300 UNITS/3 ML VIAL. SQ SCH ×3 (08:21→17:27)
[2021-03-21] MEDS: NICOTINE 21MG PATCH. TD SCH (08:57)
[2021-03-21] MEDS ORDERED: NON FORMULARY ITEM (Fluticasone/Umeclidin/Vilanter (Trelegy Ellipta 100-62.5-25) 1 EACH) IH SCH (09:00)
[2021-03-21] MEDS ORDERED: METOPROLOL SUCC 24HR ER 50 MG TAB.ER.24H. PO SCH (09:00)
[2021-03-21 09:19] LABS: ALBUMIN 2.6 g/dL (3.4-5.0); DIRECT BILIRUBIN 0.2 mg/dL (0.0-0.2); TOTAL BILIRUBIN 0.3 mg/dL (0.2-1.0); TOTAL PROTEIN 5.5 g/dL (6.4-8.2)
[2021-03-21] MEDS: INSULIN GLARGINE SYRINGE. SQ SCH ×2 (09:58→21:07)
[2021-03-21 10:47] VITALS: BP 174/80
[2021-03-21 13:57] VITALS: BP 165/89
[2021-03-21] MEDS: ACETAMINOPHEN/CODEINE 300/30MG TABLET PO PRN ×2 (15:16→21:03)
[2021-03-21 20:03] VITALS: BP 175/82
[2021-03-21] MEDS: NYSTATIN TOPICAL POWDER 15GM BOTTLE. TP SCH (21:00)
[2021-03-21 23:24] VITALS: BP 162/84
[2021-03-22] VITALS (7 sets, daily range): BP systolic 130–210; BP diastolic 76–105
--- NOTE | 2021-03-22 02:01 | PN ---
SUBJECTIVE: The patient is resting fairly comfortably. She has had a problem course with COVID-19 and acute respiratory distress. She has been placed on remdesivir and she is making fairly good progress with that. She is feeling a little bit better. Oxygen saturation seems to be improving dramatically. OBJECTIVE: VITAL SIGNS: Blood pressure is elevated 165/89, respiration rate 20, pulse 60, afebrile, room air 95%. GENERAL: The patient is alert and oriented, still fairly weak, but making progress overall. LUNGS: Diminished throughout. CARDIOVASCULAR: Regular sinus rhythm. ABDOMEN: Soft, nontender. EXTREMITIES: No clubbing, cyanosis, nor edema. NEUROLOGIC: Intact. LABORATORY DATA: The patient's white count 6, hemoglobin and hematocrit 14 and 40, MCV still elevated. His platelets on the low side 123. Chemistries still show elevated blood sugar, putting her on Lantus twice a day as well as increasing her sliding scale to make further evaluation on her as indicated with those results. IMPRESSION: COVID-19 SARS, respiratory failure, megaloblastic anemia, hyperglycemia, poorly controlled. Elevated liver enzymes, history of cirrhosis of the liver, hypokalemia, and moderate protein malnutrition. MANINDER/ILIANA DR: MANINDER/mona TID: [id number]
[2021-03-22] MEDS: ACETAMINOPHEN/CODEINE 300/30MG TABLET PO PRN ×3 (06:15→19:55)
[2021-03-22] MEDS: DEXAMETHASONE SOD PHOS 10 MG/ML VIAL. IV SCH ×4 (06:15→21:00)
[2021-03-22] MEDS: IV NORMAL SALINE 1,000ML 1,000 ML IV SCH ×2 (06:15→17:20)
[2021-03-22] MEDS: METOPROLOL TART IMMED RELEASE 50 MG TABLET PO SCH ×2 (07:48→21:00)
[2021-03-22] MEDS: INSULIN LISPRO 300 UNITS/3 ML VIAL. SQ SCH ×3 (08:00→17:00)
[2021-03-22] MEDS: ENOXAPARIN 40 MG/0.4 ML SYRINGE. SQ SCH ×2 (08:29→22:14)
[2021-03-22] MEDS: hydrALAZINE 25 MG TABLET PO SCH ×3 (08:30→22:13)
[2021-03-22] MEDS: LISINOPRIL 20 MG TABLET PO SCH (08:30)
[2021-03-22] MEDS: MAGNESIUM CHLORIDE ER 64 MG TABLET.ER PO SCH (08:30)
[2021-03-22] MEDS: REMDESIVIR 100mg in NORMAL SALINE 250ML X 4 DAYS IV SCH (08:31)
[2021-03-22] MEDS: PANTOPRAZOLE 40 MG TABLET. PO SCH (08:31)
[2021-03-22] MEDS: GABAPENTIN 300 MG CAPSULE. PO SCH ×3 (08:31→22:13)
[2021-03-22] MEDS: CITALOPRAM 20 MG TABLET. PO SCH (08:31)
[2021-03-22] MEDS: cloNIDine HCL 0.2 MG TABLET PO SCH ×3 (08:31→21:00)
[2021-03-22] MEDS: FLUTICASONE/VILANTEROL 100/25 INHALER. INH SCH (08:32)
[2021-03-22] MEDS: IPRATROPIUM/ALBUTEROL 20/100mcg/INH INHALER. INH SCH ×4 (08:32→22:14)
[2021-03-22] MEDS: INSULIN GLARGINE SYRINGE. SQ SCH ×2 (08:33→22:14)
[2021-03-22] MEDS: NYSTATIN TOPICAL POWDER 15GM BOTTLE. TP SCH ×2 (08:34→21:00)
[2021-03-22] MEDS: NICOTINE 21MG PATCH. TD SCH (08:34)
[2021-03-22] MEDS ORDERED: INSULIN LISPRO 300 UNITS/3 ML VIAL. SQ ONE (17:15)
[2021-03-22] MEDS ORDERED: cloNIDine HCL 0.1 MG TABLET PO ONE (18:45)
[2021-03-23] MEDS: ACETAMINOPHEN/CODEINE 300/30MG TABLET PO PRN ×3 (06:07→22:06)
[2021-03-23 07:00] VITALS: BP 130/76
[2021-03-23 07:27] LABS: DIRECT BILIRUBIN 0.3 mg/dL (0.0-0.2); TOTAL BILIRUBIN 0.6 mg/dL (0.2-1.0); TOTAL PROTEIN 6.4 g/dL (6.4-8.2)
[2021-03-23] MEDS: METOPROLOL TART IMMED RELEASE 50 MG TABLET PO SCH ×2 (08:00→21:30)
[2021-03-23] MEDS: INSULIN GLARGINE SYRINGE. SQ SCH ×2 (08:41→21:37)
[2021-03-23] MEDS: INSULIN LISPRO 300 UNITS/3 ML VIAL. SQ SCH ×3 (08:42→17:14)
[2021-03-23] MEDS: IPRATROPIUM/ALBUTEROL 20/100mcg/INH INHALER. INH SCH ×4 (08:43→21:29)
[2021-03-23] MEDS: FLUTICASONE/VILANTEROL 100/25 INHALER. INH SCH (08:43)
[2021-03-23] MEDS: REMDESIVIR 100mg in NORMAL SALINE 250ML X 4 DAYS IV SCH (08:43)
[2021-03-23] MEDS: ENOXAPARIN 40 MG/0.4 ML SYRINGE. SQ SCH ×2 (08:44→21:31)
[2021-03-23] MEDS: NICOTINE 21MG PATCH. TD SCH (08:44)
[2021-03-23] MEDS: DEXAMETHASONE SOD PHOS 10 MG/ML VIAL. IV SCH ×2 (08:45→21:30)
[2021-03-23] MEDS: IV NORMAL SALINE 1,000ML 1,000 ML IV SCH ×2 (08:45→20:00)
[2021-03-23] MEDS: CITALOPRAM 20 MG TABLET. PO SCH (08:46)
[2021-03-23] MEDS: GABAPENTIN 300 MG CAPSULE. PO SCH ×3 (08:46→21:30)
[2021-03-23] MEDS: MAGNESIUM CHLORIDE ER 64 MG TABLET.ER PO SCH (08:46)
[2021-03-23] MEDS: PANTOPRAZOLE 40 MG TABLET. PO SCH (08:46)
[2021-03-23] MEDS: cloNIDine HCL 0.2 MG TABLET PO SCH ×3 (08:47→21:30)
[2021-03-23] MEDS: LISINOPRIL 20 MG TABLET PO SCH (08:47)
[2021-03-23] MEDS: hydrALAZINE 25 MG TABLET PO SCH ×3 (08:47→21:00)
[2021-03-23] MEDS: NYSTATIN TOPICAL POWDER 15GM BOTTLE. TP SCH ×2 (08:48→21:37)
[2021-03-23] MEDS ORDERED: INSULIN GLARGINE SYRINGE. SQ ONE (09:30)
[2021-03-23 11:42] VITALS: BP 157/85
[2021-03-23 15:06] VITALS: BP 152/71
--- NOTE | 2021-03-23 17:56 | PN ---
SUBJECTIVE: This is a 50-year-old female with COVID-19 pneumonia and respiratory failure. The patient is resting fairly comfortably, making fairly good progress overall. She is on remdesivir and Decadron. The patient's sugars are elevated, but we are giving her additional insulin to bring that down and we will taper down on her Decadron to make this hopefully bring this under better control. Albumin critically low or severe low at 2.6. The patient's blood pressure presently up to 210/105. She was given Procardia-XL 60 and then clonidine 0.2. We are still waiting to see the effect of that, may have to put her on hydralazine or some other antihypertensive medications. She denies any chest pain, shortness of breath. She is asymptomatic basically from that. OBJECTIVE: GENERAL: Otherwise, alert and oriented. LUNGS: Diminished, poor movement of air. CARDIOVASCULAR: Regular sinus rhythm. ABDOMEN: Soft, nontender, no rebound or guarding. Positive bowel sounds. VITAL SIGNS: The patient's respiratory rate 18, pulse 60, afebrile, room air now 90%, should be on oxygen, told the nurses. NEUROLOGIC: The patient otherwise continued to be monitored carefully and we will make further evaluation on those results as indicated. IMPRESSION: Acute respiratory failure secondary to COVID-19. Pneumonia secondary to COVID-19. Hypertensive urgency, morbid obesity, cirrhosis of the liver, type 2 diabetes, exacerbated by prednisone, severe protein malnutrition. MANINDER/BELL/ARTUR DR: MANINDER/mona TID: [id number]
[2021-03-23 20:06] VITALS: BP 127/72
[2021-03-23 23:53] VITALS: BP 124/68
--- NOTE | 2021-03-24 01:52 | PN ---
SUBJECTIVE: She is resting fairly comfortably. The patient is a 50-year-old female in with COVID-19 pneumonia, respiratory failure. She says she is feeling a little bit better; however, the patient's sugars are still running high. Blood pressure 152/70, respiratory rate 20, pulse 70. She is afebrile, 94% on room air. Feels better overall. The patient continues on her antibiotic therapy as well as remdesivir. We will go ahead and continue to make further evaluation on her as indicated. OBJECTIVE: GENERAL: Otherwise, the patient is alert and oriented. LUNGS: Diminished. Some decreased breath sounds in the bases, but markedly improved. CARDIOVASCULAR: Regular sinus rhythm. ABDOMEN: Soft, nontender. EXTREMITIES: No clubbing, cyanosis, edema. NEUROLOGIC: The patient alert and oriented x3. IMPRESSION: The patient is making progress overall, acute respiratory failure secondary to COVID-19, pneumonia secondary to COVID-19, hypertensive urgency, morbid obesity, cirrhosis of the liver, type 2 diabetes, exacerbated by prednisone and severe protein malnutrition. Continue with present drug regimen. HERNANDEZ DR: Jurgen TID: [id number]
[2021-03-24 06:00] VITALS: BP 150/79
[2021-03-24] MEDS: REMDESIVIR 100mg in NORMAL SALINE 250ML X 4 DAYS IV SCH (08:00)
[2021-03-24] MEDS: PANTOPRAZOLE 40 MG TABLET. PO SCH (08:16)
[2021-03-24] MEDS: NICOTINE 21MG PATCH. TD SCH (08:25)
[2021-03-24] MEDS: MAGNESIUM CHLORIDE ER 64 MG TABLET.ER PO SCH (08:25)
[2021-03-24] MEDS: ENOXAPARIN 40 MG/0.4 ML SYRINGE. SQ SCH (08:25)
[2021-03-24] MEDS: hydrALAZINE 25 MG TABLET PO SCH (08:26)
[2021-03-24] MEDS: METOPROLOL TART IMMED RELEASE 50 MG TABLET PO SCH (08:26)
[2021-03-24] MEDS: LISINOPRIL 20 MG TABLET PO SCH (08:26)
[2021-03-24] MEDS: GABAPENTIN 300 MG CAPSULE. PO SCH (08:26)
[2021-03-24] MEDS: IPRATROPIUM/ALBUTEROL 20/100mcg/INH INHALER. INH SCH ×2 (08:27→13:03)
[2021-03-24] MEDS: cloNIDine HCL 0.2 MG TABLET PO SCH (08:27)
[2021-03-24] MEDS: CITALOPRAM 20 MG TABLET. PO SCH (08:27)
[2021-03-24] MEDS: FLUTICASONE/VILANTEROL 100/25 INHALER. INH SCH (08:27)
[2021-03-24] MEDS: DEXAMETHASONE SOD PHOS 10 MG/ML VIAL. IV SCH (08:28)
[2021-03-24] MEDS: NYSTATIN TOPICAL POWDER 15GM BOTTLE. TP SCH (08:32)
[2021-03-24] MEDS: IV NORMAL SALINE 1,000ML 1,000 ML IV SCH (08:36)
[2021-03-24] MEDS: INSULIN LISPRO 300 UNITS/3 ML VIAL. SQ SCH ×2 (08:43→13:04)
[2021-03-24] MEDS: INSULIN GLARGINE SYRINGE. SQ SCH (09:08)
[2021-03-24] MEDS ORDERED: NYST60PO TP (11:57)
[2021-03-24] MEDS ORDERED: GABA-586 PO (11:57)
[2021-03-24] MEDS ORDERED: PRED-220 PO (11:57)
[2021-03-24 12:05] VITALS: BP 171/78
--- NOTE | 2021-03-24 20:48 | DS ---
DATE OF DISCHARGE: 03/24/2021 HOSPITAL COURSE: This is a 50-year-old female with history of COVID-19 pneumonia, got progressively worse despite being on outpatient and became increasingly short of breath. The patient came into respiratory distress and was brought into the hospital, placed on supplemental oxygen as well as remdesivir breathing treatments. The patient also was noted to have episodes of hypertensive urgency with her blood pressure going as high as approximately 210/100, the patient's respiratory rate remained 18, her pulse vacillated anywhere from 40 to the 60s. She was on double doses of beta blockers because of her high blood pressure. Her oxygen saturation diminished down in two; initially was down in the 70s when she first came in and gradually we have been able to wean her off of room air 93%. Last blood pressure taken here 170/78, respiratory rate 20, pulse 58, afebrile. She has been placed on clonidine 3 times a day as well as her other medications for her blood pressure including the hydralazine 25 mg t.i.d., metoprolol 50 mg b.i.d., lisinopril 20 mg daily. The patient is also on insulin sliding scale as she had severe problems with her sugar compound that of course with the use of Decadron. The patient, however, was brought under better control. Her albumin was low at 2.6 and magnesium was low. She was given supplemental magnesium. Potassium was low and that was given supplementally and adjusted accordingly. IMPRESSION: Acute respiratory failure secondary to COVID-19 SARS infection, hypokalemia, severe protein malnutrition, type 2 diabetes, exacerbated by steroid use; and elevated liver enzymes. The patient otherwise continued to be monitored carefully. She has multiple risk factors. Warned about living with other people and living in isolation for at least another week or so and being followed up as an outpatient. She received all five doses of her remdesivir and did remarkably better. She will be on a diabetic diet, decreased activity and make further evaluation on her as indicated. MANINDER BAKER: MANINDER/mona TID: [id number]
== END 2021-03-24 12:45 | disposition home or self-care (01) | DRG 177 ==
LOC: ER 19:06 → 1 SOUTH 22:33
PROVIDERS: ADMIT Family Medicine; ATTEND Family Medicine
PROC: XW033E5 Introduction of Remdesivir Anti-infective into Peripheral Vein, Percutaneous Approach, New Technology Group 5 (ICD-10-PCS; principal; 2021-03-19)
DX: U07.1 COVID-19 (principal); E43 Unspecified severe protein-calorie malnutrition; J12.82 Pneumonia due to coronavirus disease 2019; J96.01 Acute respiratory failure with hypoxia; J44.0 Chronic obstructive pulmonary disease with (acute) lower respiratory infection; Z68.41 Body mass index [BMI] 40.0-44.9, adult; D53.1 Other megaloblastic anemias, not elsewhere classified; E11.65 Type 2 diabetes mellitus with hyperglycemia; E66.01 Morbid (severe) obesity due to excess calories; E78.00 Pure hypercholesterolemia, unspecified; E87.6 Hypokalemia; I11.0 Hypertensive heart disease with heart failure; I16.0 Hypertensive urgency; I50.9 Heart failure, unspecified; K74.60 Unspecified cirrhosis of liver; T38.0X5A Adverse effect of glucocorticoids and synthetic analogues, initial encounter; Z79.899 Other long term (current) drug therapy; Z81.8 Family history of other mental and behavioral disorders; Z82.3 Family history of stroke; Z82.49 Family history of ischemic heart disease and other diseases of the circulatory system; Z83.3 Family history of diabetes mellitus; Z86.73 Personal history of transient ischemic attack (TIA), and cerebral infarction without residual deficits
CPT/HCPCS: 36415; 71045; 80048; 80053; 80076; 82550; 82947; 83605; 83615; 83735; 84484; 85025; 85379; 86140; 87040; 93005; 96361; 96374; J0456; J0696; J1100; J1650; J1815; J3475; J7050; 99285-25; J7030

== ENCOUNTER 2021-03-28 12:08 | Emergency (ER) | payer OTHER ==
[~2021-03-28] VITALS: Ht 165.1 cm; Wt 114.0 kg
[~2021-03-28 12:08] MED LIST changes: +GABA-586 PO; +NYST60PO TP
[2021-03-28] MEDS ORDERED: IV NORMAL SALINE 1,000ML 1,000 ML IV ONE (12:30)
[2021-03-28 12:31] VITALS: BP 114/55
[2021-03-28 12:45] LABS: BASO # 0.1 x10^3/uL (0.0-0.2); BASO % 1 % (0-3); EOS % 0 % (0-3); HEMOGLOBIN 16.3 g/dL (12.0-15.5); LYMPH # 1.5 x10^3/uL (1.0-4.8); LYMPH % 13 % (24-48); MEAN CORPUSCULAR HEMOGLOBIN 34 pg (25-35); MEAN CORPUSCULAR HGB CONC 33 g/dL (31-37); MEAN CORPUSCULAR VOLUME 103 fL (79-100); MONO # 0.9 x10^3/uL (0.0-1.1); MONO % 8 % (0-9); NEUT # 8.9 x10^3uL (1.8-7.7); NEUT % 78 % (31-73); PLATELET COUNT 172 x10^3/uL (140-400); RED BLOOD COUNT 4.75 x10^6/uL (3.50-5.40); RED CELL DISTRIBUTION WIDTH 15.3 % (11.5-14.5); WHITE BLOOD COUNT 11.4 x10^3/uL (4.0-11.0)
--- NOTE | 2021-03-28 12:46 | RAD ---
EXAM: Chest, single view. HISTORY: Covid 19. COMPARISON: 03/19/2021 FINDINGS: A frontal view of the chest is obtained. There is no infiltrate, pleural effusion or pneumo thorax. There is a stable prominent cardiac silhouette. There is suspected lingular atelectasis or sc arring. IMPRESSION: No acute pulmonary finding. Electronically signed by: Denise Carr MD (03/28/2021 12:44 PM) [id number]
[2021-03-28 12:59] LABS: ALBUMIN 2.4 g/dL (3.4-5.0); ALBUMIN/GLOBULIN RATIO 0.6 (1.0-1.7); CALCIUM 8.4 mg/dL (8.5-10.1); CREATININE 1.1 mg/dL (0.6-1.0); GFR 52.6; TOTAL BILIRUBIN 0.9 mg/dL (0.2-1.0); TOTAL PROTEIN 6.6 g/dL (6.4-8.2)
--- NOTE | 2021-03-28 12:59 | PHYS DOC ---
Past History Past Medical History: Asthma, CHF, COPD, CVA, Diabetes, Hypertension Additional Past Medical Histor: neuropathy Past Surgical History: Tonsillectomy Alcohol Use: None Drug Use: None General Adult EDM: Chief Complaint: GENERALIZED BODY ACHES HPI: HPI: 50-year-old female presents with generalized body aches. She was diagnosed with COVID-19 10 days ago. She was actually seen and admitted to this facility recently with COVID-19. She was doing okay so she went home. She tells me that after she got home, "it got a lot worse". She has had intermittent fever but her primary complaint is the body aches. She has had worsening shortness of breath. Denies chest pain. Review of Systems: Review of Systems: Constitutional: fever, body aches Eyes: Denies change in visual acuity HENT: Denies nasal congestion or sore throat Respiratory: cough with shortness of breath Cardiovascular: Denies chest pain or edema GI: Denies abdominal pain, nausea, vomiting, bloody stools or diarrhea : Denies dysuria Musculoskeletal: Denies back pain or joint pain Integument: Denies rash Neurologic: Denies headache, focal weakness or sensory changes Endocrine: Denies polyuria or polydipsia Lymphatic: Denies swollen glands Psychiatric: Denies depression or anxiety Current Medications: Current Meds: Current Medications Medications (Trade) Dose Ordered Sig/Javier Start Time Stop Time Status Last Admin Dose Admin Sodium Chloride 1,000 ml @ 1,000 mls/hr 1X ONCE 03/28/21 12:30 03/28/21 13:29 03/28/21 12:30 1,000 MLS/HR Allergies: Allergies: Allergies Coded Allergies Type Severity Reaction Last Updated Verified No Known Allergies Allergy Unknown 10/25/19 Yes Physical Exam: PE: Constitutional: Well developed, well nourished, mild acute distress, non-toxic appearance. [] HENT: Normocephalic, atraumatic, bilateral external ears normal, oropharynx moist, no oral exudates, nose normal. [] Eyes: PERRLA, EOMI, conjunctiva normal, no discharge. [] Neck: Normal range of motion, no tenderness, supple, no stridor. [] Cardiovascular: Heart rate 87, regular rhythm, no murmur [] Lungs & Thorax: Bilateral breath sounds diminished [] Abdomen: Bowel sounds normal, soft, no tenderness, no masses, no pulsatile merced s. [] Skin: Warm, dry, no erythema, no rash. [] Back: No tenderness, no CVA tenderness. [] Extremities: No tenderness, no cyanosis, no clubbing, ROM intact, no edema. [] Neurologic: Alert and oriented X 3, normal motor function, normal sensory function, no focal deficits noted. [] Psychologic: Affect normal, judgement normal, mood concerned. [] Current Patient Data: Vital Signs: Vital Signs Date Time Temp Pulse Resp B/P (MAP) Pulse Ox O2 Delivery O2 Flow Rate FiO2 03/28/21 12:31 98.2 86 22 114/55 96 Nasal Cannula 2.0 EKG: EKG: [] Radiology/Procedures: Radiology/Procedures: [] Impressions: EXAM: Chest, single view. HISTORY: Covid 19. COMPARISON: 03/19/2021 FINDINGS: A frontal view of the chest is obtained. There is no infiltrate, pleural effusion or pneumothorax. There is a stable prominent cardiac silhouette. There is suspected lingular atelectasis or scarring. IMPRESSION: No acute pulmonary finding. Electronically signed by: Denise Carr MD (03/28/2021 12:44 PM) [id number] DICTATED AND SIGNED BY: DENISE CARR MD DATE: 03/28/21 1243 CC: TA ANDINO DO; ANGELIQUE PETERSON MD ~MTH0 0 Heart Score: C/O Chest Pain: N/A Risk Factors: Risk Factors: DM, Current or recent (<one month) smoker, HTN, HLP, family history of CAD, obesity. Risk Scores: Score 0 - 3: 2.5% MACE over next 6 weeks - Discharge Home Score 4 - 6: 20.3% MACE over next 6 weeks - Admit for Clinical Observation Score 7 - 10: 72.7% MACE over next 6 weeks - Early Invasive Strategies Course & Med Decision Making: Course & Med Decision Making Pertinent Labs and Imaging studies reviewed. (See chart for details) The patient's potassium is 2.4. She has diffuse aches all over. I will treat her with 80 mEq of p.o. potassium. Her chest x-ray is negative for acute findings. Her oxygen saturation is 96% on 1L . I suspect that her cramping is from the low potassium. If we can improve the symptoms, the patient should be able to go home. I have also treated her with 2 mg of morphine. On reevaluation the patient still has cramping pain but her potassium has not improved as a lab value as of yet. This will take time due to GI absorption. The patient does not like IV potassium. I have encouraged her to take a multivitamin at home as well as 40 mEq of potassium supplementation until she gets over this illness. The patient is able to me and her oxygen at 92-93 on room air. I will discharge her with Bitely for discomfort. The patient is comfortable with this plan she would prefer to go home. She is stable for discharge at this time. [] Dragon Disclaimer: Dragon Disclaimer: This electronic medical record was generated, in whole or in part, using a voice recognition dictation system. Departure Departure: Impression: Primary Impression: Hypokalemia Additional Impression: COVID-19 Disposition: 01 HOME / SELF CARE / HOMELESS Condition: STABLE Referrals: ANGELIQUE PETERSON MD (PCP) Patient Instructions: Hypokalemia-Brief Additional Instructions: You have been tested for or diagnosed with COVID-19. It is an infection caused by a new type of coronavirus. COVID-19 will cause cold-like or mild flu symptoms in most. It can cause more severe symptoms like problems breathing in some. There is no treatment for COVID-19. The body will clear the infection over time. Self-care will help to ease discomfort. Steps to Take: Self-Care Rest as needed. Healthy habits may help you feel better. Steps include: Choose healthy foods including fruits and vegetables. Drink water throughout the day. Get plenty of sleep each night. If you smoke, try to quit. It may ease breathing. Avoid alcohol. Keep Others Healthy The virus can spread to others. Droplets are released every time you sneeze or cough. The droplets can get into the mouth, nose, or eyes of people near you and lead to infection. To lower the chances of spreading COVID-19 to others: Stay at home until your doctor has said it is safe to leave. If you tested positive this will mean staying isolated until both of the following are true: At least 7 days have passed since the start of illness. You are free of fever for at least 72 hours without the use of medicine. During this time: - Avoid public areas, events, or transportation. Do not return to work or [facility] until your doctor has said it is safe to do so. - Call ahead if you need to go to a medical center. Let them know you may have COVID-19. It will help them guide you where to go. They may also ask you to wear a facemask when you come to the office. - If you call for emergency medical services, let them know you may have COVID- 19. While at home: - Try to avoid close contact with others. Stay about 6 feet away. - If possible, spend most of your time in a separate room from others. - Use a face mask if you will be in close contact with others such as sharing a room or vehicle. - Have someone wipe down common surfaces in the home. Use household regulator inspector every day on areas like doorknobs, counters, or sinks. - Cough or sneeze into a tissue. Throw the tissue away right after use. If a tissue is not available, cough or sneeze into your elbow. - Wash your hands often. Wash them after sneezing or coughing. Use soap and water and wash for at least 20 seconds. Alcohol based hand reed cleaner can be used if soap and water is not available. - Do not prepare food for others. Avoid sharing personal items like forks, spoons, or toothbrushes. - Avoid close contact with pets while you are sick. There is no evidence of the virus passing to pets. This is a safety step until more is known about this virus. Isolation can be frustrating. Social interaction can help. Keep in touch with fr iends and family through phone and tech options. You can still interact with others in your home, just keep a safe distance of about 6 feet. Follow-up: Your doctors office will check in with you to see if there are any changes in your health. You may be asked to keep track of symptoms to share with them. They will also let you know when you are clear to be in public again. Problems to Look Out For: Contact your doctor if your recovery is not going as you expect. Get emergency care if you have problems such as: - Trouble breathing - Nonstop chest pain or pressure - Changes in awareness, confusion, or problems waking - Lips or face have bluish color - Worsening of symptoms If you think you have an emergency, call for emergency medical services right away. As taken from [employer] [place] [facility] Hydrocodone/Acetaminophen (Hydrocodone-Acetamin 5-325 mg) 1 Each Tablet 1 EACH PO Q4-6HRS PRN for PAIN, #14 TAB Prov: TA ANDINO DO 03/28/21 TA ANDINO DO Mar 28, 2021 12:59
[2021-03-28] MEDS ORDERED: MORPHINE SULFATE 2 MG/ML DISP.SYRIN. IV ONE (13:00)
[2021-03-28] MEDS ORDERED: ONDANSETRON PF 4 MG/2 ML VIAL. IVP ONE (13:00)
[2021-03-28 13:01] LABS: POTASSIUM 2.4 mmol/L (3.5-5.1)
[2021-03-28] MEDS ORDERED: POTASSIUM CHLORIDE 20 MEQ TABLET.ER. PO ONE (13:15)
--- NOTE | 2021-03-28 13:55 | EKG ---
[address] [address] Test Date: 2021-03-28 Test Time: 12:29:17 Pat Name: OLIVER PEARSON Department: Room: Gender: F Anthropologist: OMARI : 1970 Requested By: TA ANDINO Order Number: [id number] Reading MD: Measurements Intervals [place] Rate: 93 P: 58 CO: 130 QRS: 41 QRSD: 86 T: 35 QT: 394 QTc: 493 Interpretive Statements SINUS RHYTHM PROLONGED QT NO SPECIFIC ECG ABNORMALITIES RI6.02 No previous ECG available for comparison
[2021-03-28] MEDS ORDERED: POTASSIUM CHLORIDE 20MEQ 100 ML IV ONE (14:00)
[2021-03-28] MEDS ORDERED: HYDROcodone/APAP 7.5/325MG 1 TAB TABLET PO ONE (15:00)
[2021-03-28] MEDS ORDERED: HYDR-2759 PO (15:01)
== END 2021-03-28 15:10 | disposition home or self-care (01) ==
LOC: ER 12:08
DX: U07.1 COVID-19 (principal); E87.6 Hypokalemia; I11.0 Hypertensive heart disease with heart failure; I50.9 Heart failure, unspecified; J44.9 Chronic obstructive pulmonary disease, unspecified; E11.9 Type 2 diabetes mellitus without complications; Z86.73 Personal history of transient ischemic attack (TIA), and cerebral infarction without residual deficits
CPT/HCPCS: 36415; 71045; 80053; 84132; 84484; 85025; 93005; 96361; 96374; 96375; 99285; J2270; J2405; J7030

== ENCOUNTER 2021-04-06 18:40 | Emergency (ER) | payer SELFPAY ==
[~2021-04-06 18:40] MED LIST changes: +HYDR-2759 PO
== END 2021-04-06 19:58 | disposition left against medical advice (07) ==
LOC: ER 18:40
DX: R06.02 Shortness of breath (principal); Z53.21 Procedure and treatment not carried out due to patient leaving prior to being seen by health care provider

== ENCOUNTER 2021-04-06 22:09 | Inpatient (IN) | payer SELFPAY ==
[~2021-04-06] VITALS: Ht 165.1 cm; Wt 104.1 kg
--- NOTE | 2021-04-06 21:30 | NUR ---
Received pt as direct admission from home per orders from Dr. Estrada; pt arrives in stable condition, ambulatory, via private auto as driven by son; A&Ox4, VSS, afebrile; Sats 90% on room air, insp/exp wheezes auscultated throughout all bell, non-productive cough noted, reports increasing SOA x several days; 02 per nasal canula at 2L applied, Sats 96%; IV access established via #20g to left AC, marysol well; admission history and assessment complete; room orientation given and plan of care discussed, verbalized understanding; siderails up x2, call cuevas in reach; airborne and contact precautions in place per positive COVID status following facility protocols.
[~2021-04-06 22:09] MED LIST changes: +GABAPENTIN 300 MG CAPSULE. PO SCH
[2021-04-06] MEDS ORDERED: IV 1/2 NORMAL SALINE 1,000 ML IV SCH (22:30)
[2021-04-06] MEDS ORDERED: PROCHLORPERAZINE 10 MG/2 ML VIAL. IV PRN (22:30)
[2021-04-06] MEDS ORDERED: MORPHINE SULFATE 4 MG/ML DISP.SYRIN. IV PRN (22:30)
[2021-04-06] MEDS ORDERED: THIAMINE 200 MG/2 ML VIAL. IV ONE (22:40)
[2021-04-06] MEDS ORDERED: MVI, ADULT NO.4 WITH VIT K 10 ML VIAL IV ONE ×2 (22:46→23:31)
[2021-04-06 22:55] LABS: BASO # 0.1 x10^3/uL (0.0-0.2); BASO % 1 % (0-3); EOS # 0.1 x10^3/uL (0.0-0.7); EOS % 1 % (0-3); HEMATOCRIT 41.1 % (36.0-47.0); HEMOGLOBIN 13.8 g/dL (12.0-15.5); LYMPH # 2.4 x10^3/uL (1.0-4.8); LYMPH % 20 % (24-48); MEAN CORPUSCULAR HEMOGLOBIN 34 pg (25-35); MEAN CORPUSCULAR HGB CONC 34 g/dL (31-37); MEAN CORPUSCULAR VOLUME 103 fL (79-100); MONO % 8 % (0-9); NEUT # 8.3 x10^3uL (1.8-7.7); NEUT % 70 % (31-73); PLATELET COUNT 277 x10^3/uL (140-400); RED BLOOD COUNT 4.01 x10^6/uL (3.50-5.40); RED CELL DISTRIBUTION WIDTH 15.5 % (11.5-14.5); WHITE BLOOD COUNT 11.9 x10^3/uL (4.0-11.0)
[2021-04-06 22:56] LABS: ALBUMIN 2.1 g/dL (3.4-5.0); ALBUMIN/GLOBULIN RATIO 0.5 (1.0-1.7); CREATININE 1.4 mg/dL (0.6-1.0); GFR 39.8; TOTAL BILIRUBIN 0.6 mg/dL (0.2-1.0); TOTAL PROTEIN 6.3 g/dL (6.4-8.2)
[2021-04-06] MEDS: PANTOPRAZOLE IV 40 MG VIAL. IVP SCH (22:56)
[2021-04-06 22:57] LABS: POTASSIUM 2.5 mmol/L (3.5-5.1)
[2021-04-06] MEDS ORDERED: ELECTROLYTE (NON-ICU) PROTOCOL. MC PRN (23:00)
[2021-04-06] MEDS ORDERED: MVI, ADULT NO.4 WITH VIT K 10 ML, THIAMINE INJ 100 MG in IV NORMAL SALINE 1,000ML 1,000... IV ONE (23:00)
[2021-04-06] MEDS ORDERED: POTASSIUM CL 20MEQ-0.45% NACL 1,000 ML IV SCH (23:15)
[2021-04-06] MEDS ORDERED: DIPHENOXYLATE/ATROPINE TABLET. PO PRN (23:30)
[2021-04-06] MEDS ORDERED: POTASSIUM BICARB 20 MEQ EFFERVESCENT TABLET. PO ONE (23:30)
[2021-04-06] MEDS: DEXAMETHASONE SOD PHOS 4 MG/ML VIAL. IVP SCH (23:46)
[2021-04-06] MEDS: ENOXAPARIN 40 MG/0.4 ML SYRINGE. SQ SCH (23:47)
[2021-04-07 02:37] VITALS: BP 135/54
--- NOTE | 2021-04-07 03:27 | EKG ---
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
--- NOTE | 2021-04-07 03:55 | NUR ---
UA collected and sent to lab; eating multiple snacks and drinking sprite with no observed nausea or vomiting, requesting breakfast as soon as possible; takes effervescent K+ PO without difficulty; VSS; will continue to monitor.
[2021-04-07] MEDS ORDERED: POTASSIUM BICARB 20 MEQ EFFERVESCENT TABLET. PO ONE (04:00)
[2021-04-07 04:08] LABS: BARBITURATES NEG (NEG); BENZODIAZEPINES NEG (NEG); CANNABINOIDS NEG (NEG); COCAINE NEG (NEG); METHADONE NEG (NEG); OPIATES POS (NEG); PHENCYCLIDINE NEG (NEG)
[2021-04-07 04:13] LABS: AMPHETAMINE/METHAMPHETAMINE NEG (NEG)
[2021-04-07 05:01] LABS: BACTERIA,URINE 0 /HPF (0-FEW); BILIRUBIN,URINE SMALL (NEG); CLARITY,URINE CLEAR; COLOR,URINE YELLOW; GLUCOSE,URINE NEG (NEG); NITRITE,URINE NEG (NEG); RBC,URINE OCC /HPF (0-2); SQUAMOUS EPITHELIAL CELL,UR FEW /LPF; UROBILINOGEN,URINE 0.2 mg/dL (0.2 mg/dL); WBC,URINE OCC /HPF (0-4)
[2021-04-07] MEDS: DEXAMETHASONE SOD PHOS 4 MG/ML VIAL. IVP SCH ×3 (05:11→22:19)
[2021-04-07 06:10] VITALS: BP 109/62
--- NOTE | 2021-04-07 06:23 | NUR ---
UNABLE TO GET TO THIS DUE TO BEING BUSY IN tHE ER
[2021-04-07] MEDS: IPRATRPIUM/ALBUTEROL 0.5/2.5MG 3 ML NEBU. NEB SCH ×2 (06:47→06:51)
[2021-04-07] MEDS ORDERED: IPRATRPIUM/ALBUTEROL 0.5/2.5MG 3 ML NEBU. NEB SCH (08:00)
[2021-04-07] MEDS: hydrALAZINE 25 MG TABLET PO SCH ×3 (08:44→22:14)
[2021-04-07] MEDS: NYSTATIN TOPICAL POWDER 15GM BOTTLE. TP SCH ×2 (08:44→21:00)
[2021-04-07] MEDS: CITALOPRAM 20 MG TABLET. PO SCH (08:44)
[2021-04-07] MEDS: ENOXAPARIN 40 MG/0.4 ML SYRINGE. SQ SCH ×2 (08:44→22:15)
[2021-04-07] MEDS: INSULIN GLARGINE SYRINGE. SQ SCH ×2 (08:45→22:20)
[2021-04-07] MEDS: INSULIN LISPRO 300 UNITS/3 ML VIAL. SQ SCH ×4 (08:46→17:36)
[2021-04-07] MEDS: PANTOPRAZOLE IV 40 MG VIAL. IVP SCH (08:49)
[2021-04-07] MEDS ORDERED: NORMAL SALINE SCH (09:00)
[2021-04-07] MEDS ORDERED: [UNRECOGNIZED DRUG - OTHER] SCH (09:00)
[2021-04-07] MEDS ORDERED: REMDESIVIR LOAD in IV NORMAL SALINE 250ML TV IV ONE (09:00)
--- NOTE | 2021-04-07 09:26 | RAD ---
2 view abdominal series and PA view chest x-ray Clinical indications: Nausea and vomiting and shortness of breath. Covid positive. COMPARISON: Chest x-ray dated March 28, 2021. FINDINGS: There is mild fecal retention throughout the colon. No dilatation of the colon or small bow el is seen. No free intraperitoneal air or significant fluid levels are seen. Chest x-ray demonstrates small nodular bilateral lung infiltrates which have developed since the prio r study. No pleural effusion or pneumothorax is evident. Heart size is mildly enlarged but unchanged. The mediastinum and pulmonary vasculature and both gal are unremarkable. IMPRESSION: No obstructive bowel pattern or free air. Small bilateral diffuse nodular lung infiltrates which may be seen with Covid 19 pneumonia. Electronically signed by: Danie Solis MD (04/07/2021 9:23 AM) [id number]
[2021-04-07 10:54] VITALS: BP 104/60
[2021-04-07] MEDS: PROMETH/CODEINE 6.25/10MG 5 ML SYRUP. PO PRN (11:57)
[2021-04-07] MEDS: IPRATROPIUM/ALBUTEROL 20/100mcg/INH INHALER. INH SCH ×3 (11:57→22:13)
[2021-04-07 12:30] LABS: CALCIUM 7.7 mg/dL (8.5-10.1); CREATININE 1.3 mg/dL (0.6-1.0); GFR 43.4
--- NOTE | 2021-04-07 12:57 | HP ---
HISTORY OF PRESENT ILLNESS: A 50-year-old female for the last 3 or 4 days has been increasingly ill with nausea, vomiting, severe coughing, hacking cough, as well as diarrhea. The patient had been admitted back on 03/20 with COVID pneumonia and had been in the low 80s or so, but had made good progress and was discharged home, although apparently there has been numerous people at home that have had problems with COVID-19 and may have reinfected her or whatever, but the patient is markedly ill. She hurts all over. She can barely move. The coughing she says is so terrible it is giving her abdominal pain. She looks extremely ill. She is also quite hypoxic and requiring at least 4 liters to maintain her oxygen per nasal cannula. Her heart rates in the 115 range. Technically, she appears to be septic. The cause of the sepsis is to be evaluated since the patient is not really running a temperature and with the diarrhea we need to rule out Clostridium difficile to make sure we do not aggravate it with additional IV antibiotic therapy. PAST MEDICAL HISTORY: As stated before, is quite extensive. She has had CVA, severe neuropathy peripheral, chronic headaches, hypertension. She has had heart failure, tachycardia, hypercholesterolemia, congestive heart failure, hypertension, COPD, asthma, history of heavy smoking, sleep apnea, refuses to use CPAP, stress incontinence, GERD, hematuria, urinary urgency, musculoskeletal disorders, multiple degenerative arthritis, fibromyalgia, arthritis, back pain, endocrine disorders, type 2 diabetes, poorly controlled, psychiatric problems of depression, alcohol abuse, binge drinking. She has had all the elements of cirrhosis of the liver, financial problems. Tetanus shots are up to date. ALLERGIES: She has no known allergies. FAMILY HISTORY: Positive for obesity, hypertension, diabetes, depression, angina. Daughter with Guillain[place]. SOCIAL HISTORY: As indicated, heavy abuse of alcohol, heavy smoking use at times. The patient is a full code. REVIEW OF SYSTEMS: Otherwise, she does have a headache. She denies visual changes, but feels incredibly ill. Pain 8-9/10. The patient wants to , she is so miserable. Cannot move, pretty much laid back in bed and unable to really take care of herself. She is totally dependent with all ADLs. The patient otherwise having diarrhea. She reports no blood or mucus in the stool, but again she is a relatively poor historian and we will go ahead and try to collect stools for C. diff as well as fecal Hemoccults as well. She says the diarrhea is fairly constant and we need to evaluate that. Neurologically, just miserable, severe polyarthritis and all her joints are hurting. Cannot move very well. We are attempting to evaluate this further, as well as repeat her COVID-19 testing as well. PHYSICAL EXAMINATION: GENERAL: This is an extremely ill individual. She is miserable, coughing horrendously. Complains of pain everywhere. She has had some nausea and vomiting as well as diarrhea. VITAL SIGNS: Her blood pressure 135/54, respiration 22, pulse 115, temperature 98.5, 4 liters at 92. The patient is fairly alert, although when she talks she has her eyes closed. HEENT: Somewhat cushingoid in the face. Cheeks are somewhat reddened. Mouth and throat: Poor dentition. NECK: Supple, although fairly difficult for her to move because of the pain. LUNGS: Diminished throughout, poor breath sounds. CARDIAC: Regular sinus rhythm, tachycardic. No obvious murmurs noted. ABDOMEN: Protuberant, soft, but tender throughout. Guarding, but no rebounding. Decreased bowel sounds, but no hepatosplenomegaly, no bruits, but marked tenderness noted. EXTREMITIES: Clubbing, cyanosis, trace edema noted. Pulses noted distally diminished. NEUROLOGIC: As noted, she is alert, but very little conversation. She is so miserable that it hurts to talk. ASSESSMENT AND PLAN: Sepsis, acute respiratory failure, possible recurrence of COVID-19 pneumonia relapse, sinus tachycardia, hypoxia, type 2 diabetes, poorly controlled, severe protein malnutrition, severe hypokalemia, potassium 2.5, cannot take IV potassium, refuses, having to give her oral potassium, severe diarrhea. Workup on a CT scan, collection of stool, try additional supplementation if she can, we will probably have to go to some type of procalamine since she has severe protein malnutrition. Her potassium was low. Her sugars are high. The patient is critically ill. We will continue to try to cover multiple episodes of what is going on here with possible viral pneumonia, severe diarrhea, severe pain, severe bronchospasm. She is on dexamethasone, she is on remdesivir for now, Lovenox, fentanyl for pain, gabapentin for her neuropathy, hydralazine. Has had a history of essential hypertension and breathing treatments. Protonix IV for her epigastric discomfort, some thiamine since she does have a history of severe alcoholism. Otherwise, we will continually monitor her, make multiple adjustments as indicated, possibly put a Pemberton catheter in her to monitor urine output and make further adjustments on her as indicated. KATHE DR: Jurgen TID: [id number]
--- NOTE | 2021-04-07 14:31 | RAD ---
Study: CT chest, abdomen and pelvis without contrast INDICATION: Severe abdominal pain. Cough. Covid positive. COMPARISON: 11/21/2020 TECHNIQUE: Helical CT imaging performed of the chest, abdomen and pelvis without the use of contrast. Coronal and sagittal reformats were obtained. One or more of the following individualized dose reduction techniques were utilized for this examinat ion: 1. Automated exposure control 2. Adjustment of the mA and/or kV according to patient size 3. Use of iterative reconstruction technique. FINDINGS: CT Chest: Nonaneurysmal aorta. Within normal limits main pulmonary artery caliber. Unchanged esophagus and a pa raesophageal lymph node. No pathologically enlarged mediastinal or hilar lymph nodes. Bilateral groundglass infiltrates primarily subpleural in distribution. Mild background atelectasis s uch as at the medial aspect of the right middle lobe. The lingular consolidative opacity on the caitlin rison has resolved. No pleural effusion. No newly seen abnormality of the body wall soft tissues, axilla or lower neck. No acute or aggressive osseous process. Degenerative changes most pronounced at C6-C7 more so than at the partially imaged C5-C6 level. CT Abdomen/Pelvis: Diffuse hepatic steatosis. The liver is enlarged with the right hepatic lobe measuring 22 cm cranioca udal at the midclavicular line. Postprandial appearance of the gallbladder. Nondilated biliary tree. Unremarkable pancreas and adrenal glands. The spleen is within normal limits for size. No stone or hy dronephrosis on the right or left. Unremarkable bladder, uterus and ovaries. Several colonic diverticuli without diverticulitis. Normal appendix. Nonobstructed small bowel. Unrem arkable stomach. Mild scattered calcific atherosclerosis. No lymphadenopathy. Soft tissue gas to the left of midline l ikely injection-related. Mild periarticular sclerosis at the SI joints which is unchanged. Lumbar spine degenerative changes g reatest at L5-S1. Incompletely characterized disc bulges from L2-L3 through L5-S1 and largest at L4-L 5 with at least moderate to potentially severe central canal stenosis with superimposed prominence of the epidural fat. IMPRESSION: CT Chest: 1. Bilateral groundglass infiltrates in keeping with an atypical/viral pneumonia. The extent of infi ltrates is relatively mild. No additional acute abnormality. CT Abdomen/Pelvis: 1. No acute abnormality identified below the diaphragm. 2. Hepatic steatosis and hepatomegaly. 3. Colonic diverticuli without diverticulitis. 4. At least moderate to potentially severe central canal stenosis at the lower lumbar spine, particu larly at L4-L5. There has been no interval change from 11/21/2020. Electronically signed by: DIONNE ROBERTS MD (04/07/2021 2:28 PM) [id number]
[2021-04-07 15:00] VITALS: BP 128/70
[2021-04-07] MEDS ORDERED: DEXTROSE 50% 25 GM / 50ML DISP.SYRIN. IV PRN (17:15)
[2021-04-07 18:12] VITALS: BP 125/56
--- NOTE | 2021-04-07 18:33 | NUR ---
Nursing note Pt has been calm and cooperative for this nurse this shift. pt has had elevated blood sugars and dr called with orders received.
[2021-04-07] MEDS ORDERED: NON FORMULARY ITEM (Gabapentin 600 MG) PO SCH (21:00)
[2021-04-07] MEDS: GABAPENTIN 300 MG CAPSULE. PO SCH (22:14)
[2021-04-07 23:00] VITALS: BP 121/53
[2021-04-08] MEDS: PROMETH/CODEINE 6.25/10MG 5 ML SYRUP. PO PRN ×2 (01:38→08:18)
[2021-04-08 03:00] VITALS: BP 121/53
[2021-04-08] MEDS: DEXAMETHASONE SOD PHOS 4 MG/ML VIAL. IVP SCH ×3 (06:24→21:48)
[2021-04-08 07:00] VITALS: BP 124/64
[2021-04-08 07:38] LABS: CALCIUM 7.8 mg/dL (8.5-10.1); CREATININE 1.2 mg/dL (0.6-1.0); GFR 47.6
[2021-04-08 07:56] LABS: BASO % 0 % (0-3); EOS % 0 % (0-3); HEMATOCRIT 37.2 % (36.0-47.0); HEMOGLOBIN 12.4 g/dL (12.0-15.5); LYMPH # 0.9 x10^3/uL (1.0-4.8); LYMPH % 10 % (24-48); MEAN CORPUSCULAR HEMOGLOBIN 35 pg (25-35); MEAN CORPUSCULAR HGB CONC 33 g/dL (31-37); MEAN CORPUSCULAR VOLUME 104 fL (79-100); MONO # 0.5 x10^3/uL (0.0-1.1); MONO % 5 % (0-9); NEUT # 7.8 x10^3uL (1.8-7.7); NEUT % 85 % (31-73); PLATELET COUNT 201 x10^3/uL (140-400); RED BLOOD COUNT 3.58 x10^6/uL (3.50-5.40); RED CELL DISTRIBUTION WIDTH 14.6 % (11.5-14.5); WHITE BLOOD COUNT 9.2 x10^3/uL (4.0-11.0)
[2021-04-08] MEDS: CITALOPRAM 20 MG TABLET. PO SCH (08:18)
[2021-04-08] MEDS: PANTOPRAZOLE IV 40 MG VIAL. IVP SCH (08:18)
[2021-04-08] MEDS: hydrALAZINE 25 MG TABLET PO SCH ×3 (08:18→21:47)
[2021-04-08] MEDS: ENOXAPARIN 40 MG/0.4 ML SYRINGE. SQ SCH ×2 (08:19→21:47)
[2021-04-08] MEDS: INSULIN LISPRO 300 UNITS/3 ML VIAL. SQ SCH ×6 (08:21→17:40)
[2021-04-08] MEDS: REMDESIVIR 100mg in NORMAL SALINE 250ML X 4 DAYS IV SCH (08:52)
[2021-04-08] MEDS: IPRATROPIUM/ALBUTEROL 20/100mcg/INH INHALER. INH SCH ×4 (08:54→20:00)
[2021-04-08] MEDS: INSULIN GLARGINE SYRINGE. SQ SCH ×2 (08:54→21:53)
[2021-04-08] MEDS: NYSTATIN TOPICAL POWDER 15GM BOTTLE. TP SCH ×2 (08:55→21:00)
[2021-04-08] MEDS ORDERED: chlordiazePOXIDE HCL 25 MG CAPSULE PO SCH (09:45)
[2021-04-08 11:40] VITALS: BP 155/88
[2021-04-08] MEDS: chlordiazePOXIDE HCL 25 MG CAPSULE PO SCH ×3 (13:02→21:47)
[2021-04-08 15:18] VITALS: BP 148/68
[2021-04-08 19:00] VITALS: BP 128/72
[2021-04-08] MEDS: GABAPENTIN 300 MG CAPSULE. PO SCH (21:46)
--- NOTE | 2021-04-08 22:00 | NUR ---
NOTIFIED DR OF PT TRIGGERING FOR SEPSIS. DR ORDERED ROCEPHIN AND LEVAQUIN. ALSO BLOOD CULTURE AND LACTIC TO BE DRAWN.
[2021-04-08 23:00] VITALS: BP 151/76
--- NOTE | 2021-04-08 23:35 | PN ---
SUBJECTIVE: The patient is a 50-year-old female. She is in with COVID-19 pneumonia. She was having acute respiratory failure and also some changes in mental status. She seems to be doing much better right now, making good progress, although still very weak. The patient has no obvious complaints, but just generalized weakness. OBJECTIVE: VITAL SIGNS: Blood pressure 150/80, respiratory 20, pulse 100 and she is afebrile, 3 liters at 94. GENERAL: The patient otherwise is alert and oriented, able to sit up now; however, she was not able to get out of bed before. LUNGS: Diminished throughout, but basically clear. CARDIOVASCULAR: Regular sinus rhythm. Tachycardic. ABDOMEN: Protuberant. EXTREMITIES: No clubbing, cyanosis or edema. NEUROLOGIC: The patient is basically stable. LABORATORY DATA: White count 9, hemoglobin 12, hematocrit 37. Chemistries: 137, 4, BUN and creatinine of 29 and 1.2. Blood sugars in the 300s. Sliding scale with additional insulin and Lantus being given there. IMPRESSION: COVID-19 pneumonia; acute respiratory failure secondary to COVID-19; morbid obesity; type 2 diabetes, poorly controlled; chronic renal failure stage 3A; severe protein malnutrition; severe hypokalemia; elevated liver enzymes, alkaline phosphatase 184 and AST of 78. PLAN: The patient will continue to be monitored carefully and continue with remdesivir, cutting down on her steroids and make further evaluation on her, also putting her on Librium and she noted she was extremely anxious and has a history of alcohol abuse. FABIOLA DR: Jurgen TID: [id number]
[2021-04-09] MEDS: BENZONATATE 100 MG CAPSULE. PO PRN ×2 (02:00→12:28)
[2021-04-09 02:23] LABS: ALBUMIN/GLOBULIN RATIO 0.5 (1.0-1.7); CALCIUM 7.7 mg/dL (8.5-10.1); CREATININE 1.2 mg/dL (0.6-1.0); GFR 47.6; TOTAL BILIRUBIN 0.3 mg/dL (0.2-1.0); TOTAL PROTEIN 5.8 g/dL (6.4-8.2)
[2021-04-09] MEDS: DEXAMETHASONE SOD PHOS 4 MG/ML VIAL. IVP SCH ×3 (05:56→21:27)
[2021-04-09] MEDS ORDERED: IV NORMAL SALINE 500ML 500 ML IV ONE (06:00)
[2021-04-09 06:31] VITALS: BP 168/79
[2021-04-09] MEDS: IV NORMAL SALINE 1,000ML 1,000 ML IV SCH ×3 (07:10→22:25)
[2021-04-09] MEDS: PANTOPRAZOLE IV 40 MG VIAL. IVP SCH (08:19)
[2021-04-09] MEDS: CITALOPRAM 20 MG TABLET. PO SCH (08:20)
[2021-04-09] MEDS: chlordiazePOXIDE HCL 25 MG CAPSULE PO SCH (08:20)
[2021-04-09] MEDS: hydrALAZINE 25 MG TABLET PO SCH ×3 (08:20→21:29)
[2021-04-09] MEDS: IPRATROPIUM/ALBUTEROL 20/100mcg/INH INHALER. INH SCH ×4 (08:20→21:27)
[2021-04-09] MEDS: NYSTATIN TOPICAL POWDER 15GM BOTTLE. TP SCH ×2 (08:21→21:00)
[2021-04-09] MEDS: ENOXAPARIN 40 MG/0.4 ML SYRINGE. SQ SCH ×2 (08:21→21:27)
[2021-04-09] MEDS: INSULIN LISPRO 300 UNITS/3 ML VIAL. SQ SCH ×7 (08:24→17:31)
[2021-04-09 08:43] LABS: BASO % 1 % (0-3); EOS % 0 % (0-3); HEMATOCRIT 39.7 % (36.0-47.0); HEMOGLOBIN 13.2 g/dL (12.0-15.5); LYMPH # 0.7 x10^3/uL (1.0-4.8); LYMPH % 8 % (24-48); MEAN CORPUSCULAR HEMOGLOBIN 35 pg (25-35); MEAN CORPUSCULAR HGB CONC 33 g/dL (31-37); MEAN CORPUSCULAR VOLUME 105 fL (79-100); MONO # 0.5 x10^3/uL (0.0-1.1); MONO % 5 % (0-9); NEUT # 7.6 x10^3uL (1.8-7.7); NEUT % 86 % (31-73); PLATELET COUNT 208 x10^3/uL (140-400); RED BLOOD COUNT 3.77 x10^6/uL (3.50-5.40); RED CELL DISTRIBUTION WIDTH 14.6 % (11.5-14.5); WHITE BLOOD COUNT 8.8 x10^3/uL (4.0-11.0)
[2021-04-09] MEDS: INSULIN GLARGINE SYRINGE. SQ SCH ×2 (09:01→21:31)
[2021-04-09] MEDS: PROMETH/CODEINE 6.25/10MG 5 ML SYRUP. PO PRN ×2 (09:04→21:27)
[2021-04-09] MEDS ORDERED: IV NORMAL SALINE 1,000ML 1,000 ML IV SCH (10:00)
[2021-04-09] MEDS: REMDESIVIR 100mg in NORMAL SALINE 250ML X 4 DAYS IV SCH (10:29)
[2021-04-09] MEDS: MORPHINE SULFATE 2 MG/ML DISP.SYRIN. IV PRN ×3 (10:30→21:28)
--- NOTE | 2021-04-09 11:30 | RAD ---
EXAM: AP View of the chest DATE: 04/09/2021 9:28 AM INDICATION: Reason: shortness of breath, positive COVID / Spl. Instructions: / History: COMPARISON: No Prior FINDINGS: The heart is mildly enlarged. Patchy perihilar and lung base opacities are seen. No pleural effusion or pneumothorax. IMPRESSION: Patchy perihilar and lung base opacities are seen. Findings may represent consolidative process such as pneumonia. Electronically signed by: Reinaldo Johnson MD (04/09/2021 11:27 AM) [id number]
[2021-04-09 11:34] VITALS: BP 160/73
[2021-04-09 13:23] LABS: % BANDS 11 % (0-9); % LYMPHS 14 % (24-48); % MONOS 4 % (0-10); % MYELOS 1 % (0-0); % SEGS 70 % (35-66); STOMATOCYTES PRESENT
[2021-04-09 13:24] LABS: PLT ESTIMATE ADEQUATE (ADEQUATE)
[2021-04-09] MEDS ORDERED: PIP/TAZO PER PHARMACY MC PRN (14:00)
[2021-04-09] MEDS ORDERED: cloNIDine TTS-2 1 PATCH PATCH TD SCH (14:30)
[2021-04-09] MEDS: guaiFENesin DM 600/30MG 1 TAB TAB.ER.12H PO SCH ×2 (15:35→21:00)
[2021-04-09 16:58] VITALS: BP 158/70
[2021-04-09 17:29] LABS: FECAL OB PT POSITIVE (NEG)
[2021-04-09] MEDS: PIPERACILLIN/TAZOBACTAM 3.375 GM in IV NORMAL SALINE 50ML 50 ML IV SCH ×2 (17:29→22:46)
[2021-04-09] MEDS ORDERED: LACTOBACILLUS RHAMNOSUS GG 1 CAPSULE. PO SCH (21:00)
[2021-04-09] MEDS: GABAPENTIN 300 MG CAPSULE. PO SCH (21:28)
[2021-04-09] MEDS: LACTOBACILLUS RHAMNOSUS GG 1 CAPSULE. PO SCH (21:29)
[2021-04-09 21:50] VITALS: BP 185/89
--- NOTE | 2021-04-09 22:55 | PN ---
SUBJECTIVE: A 50-year-old female patient in with acute respiratory failure, COVID-19 pneumonia, metabolic encephalopathy secondary to infection, sepsis. The patient is feeling somewhat better today, although she is still having problems with breathing. She did show 11 bands. Her antibiotics were changed. Sugars are still over the map, 400-300. Albumin low at 2. Sodium and potassium 142 and 4. BUN and creatinine 37 and 1.2, glucose 400-355. PHYSICAL EXAMINATION: LUNGS: Show coarse breath sounds, rhonchi noted throughout. CARDIOVASCULAR: Regular sinus rhythm. ABDOMEN: Soft, protuberant. NEUROLOGIC: Otherwise, neurologically very disoriented. IMPRESSION: Sepsis, COVID-19 pneumonia, respiratory failure, poorly controlled diabetes. PLAN: Continue to monitor the patient accordingly. IV fluids and adjust her insulin levels as well. MANINDER/ILIANA DR: MANINDER/mona TID: [id number]
[2021-04-10] MEDS: MORPHINE SULFATE 2 MG/ML DISP.SYRIN. IV PRN ×2 (02:45→08:50)
[2021-04-10] MEDS: DEXAMETHASONE SOD PHOS 4 MG/ML VIAL. IVP SCH ×3 (06:00→20:39)
[2021-04-10] MEDS: PIPERACILLIN/TAZOBACTAM 3.375 GM in IV NORMAL SALINE 50ML 50 ML IV SCH ×4 (06:00→22:53)
[2021-04-10 06:02] VITALS: BP 183/91
[2021-04-10 08:09] LABS: CALCIUM 7.3 mg/dL (8.5-10.1); GFR 58.7; POTASSIUM 4.2 mmol/L (3.5-5.1)
[2021-04-10] MEDS: LACTOBACILLUS RHAMNOSUS GG 1 CAPSULE. PO SCH ×2 (08:20→20:40)
[2021-04-10] MEDS: ENOXAPARIN 40 MG/0.4 ML SYRINGE. SQ SCH ×2 (08:20→20:41)
[2021-04-10] MEDS: IV NORMAL SALINE 1,000ML 1,000 ML IV SCH ×3 (08:20→20:41)
[2021-04-10] MEDS: PANTOPRAZOLE IV 40 MG VIAL. IVP SCH (08:20)
[2021-04-10] MEDS: CITALOPRAM 20 MG TABLET. PO SCH (08:20)
[2021-04-10] MEDS: hydrALAZINE 25 MG TABLET PO SCH ×4 (08:21→20:40)
[2021-04-10] MEDS: IPRATROPIUM/ALBUTEROL 20/100mcg/INH INHALER. INH SCH ×4 (08:22→20:39)
[2021-04-10] MEDS: NYSTATIN TOPICAL POWDER 15GM BOTTLE. TP SCH ×2 (08:22→20:41)
[2021-04-10] MEDS: guaiFENesin DM 600/30MG 1 TAB TAB.ER.12H PO SCH ×2 (08:22→20:40)
[2021-04-10] MEDS: INSULIN GLARGINE SYRINGE. SQ SCH ×2 (08:23→21:22)
[2021-04-10] MEDS: INSULIN LISPRO 300 UNITS/3 ML VIAL. SQ SCH ×5 (08:24→17:13)
[2021-04-10] MEDS: REMDESIVIR 100mg in NORMAL SALINE 250ML X 4 DAYS IV SCH (10:49)
[2021-04-10 10:51] VITALS: BP 162/92
[2021-04-10] MEDS ORDERED: MELATONIN 3 MG TABLET PO PRN (12:00)
[2021-04-10] MEDS ORDERED: fentaNYL 12MCG/HR 1 PATCH PATCH TD SCH (13:00)
[2021-04-10 16:00] VITALS: BP 172/80
--- NOTE | 2021-04-10 18:56 | NUR ---
Patient Condition Change Patient BMBS 190 called and read to . Order for 20units of insulin to be administered with a recheck post 1 hour which results of 271 obtained.
[2021-04-10 19:48] VITALS: BP 149/74
[2021-04-10] MEDS: GABAPENTIN 300 MG CAPSULE. PO SCH (20:40)
[2021-04-10] MEDS: PROMETH/CODEINE 6.25/10MG 5 ML SYRUP. PO PRN (22:59)
--- NOTE | 2021-04-11 02:44 | PN ---
SUBJECTIVE: A 50-year-old female in with SARS 19 pneumonia. The patient although making mild progress is still in excruciating pain of 8-9/10. Complains of severe leg pain, although she is able move those and has good strength. Breathing martínez, she shows some improvement. Oxygen saturation is up to 96% on 2 liters. Blood pressure is still elevated and I placed her on hydralazine to get this blood pressure down under control. Her main problem is she is writhing in bed with pain. We will add a ____ of the Duragesic patch along with her IV morphine, which does not seem to be holding her for the pain itself. The patient is still in extreme weakness with the infection. Her last chest x-ray here done yesterday demonstrated possible consolidative process in the base of the lungs ____. She is on IV Zosyn and will need to be very cautious with this infection. Otherwise, ____ x-ray because it seems to be portable. Her blood sugars are still running high because of the Decadron, which we are cutting down to twice a day and then increasing her insulin before meals along with a sliding scale combination. OBJECTIVE: VITAL SIGNS: Her blood pressure 162/90, respiratory rate 20, pulse 80, afebrile, 2 liters at 96. GENERAL: The patient is alert but in marked amount of pain and discomfort. The patient is somewhat cushingoid-appearing. LUNGS: Diminished but basically clear. There are some areas of rhonchi, but markedly improved from yesterday. CARDIOVASCULAR: Regular sinus rhythm. ABDOMEN: Protuberant. EXTREMITIES: Do show strength, but marked painful and tenderness to the upper thighs bilaterally, although she has good strength to the proximal muscles and distal muscles. Pulses noted distally. NEUROLOGIC: The patient is alert and oriented. The patient is still receiving remdesivir and Lovenox as well as the Decadron, antibiotics of the Zosyn and Levaquin for the present time. We will go ahead and monitor her accordingly. IMPRESSION: COVID-19 pneumonia, respiratory failure, sepsis, severe hyperglycemia, type 2 diabetes, morbid obesity, positive for SARS, hepatic steatosis, central canal spinal stenosis. Continue on aggressive pulmonary toilet, IV antibiotic therapy, pain management, and adjust her medications as indicated. Also, essential hypertension. MANINDER/GENE/CHLOE DR: Jurgen TID: [id number]
[2021-04-11] MEDS: PIPERACILLIN/TAZOBACTAM 3.375 GM in IV NORMAL SALINE 50ML 50 ML IV SCH ×2 (05:24→11:41)
[2021-04-11] MEDS: IV NORMAL SALINE 1,000ML 1,000 ML IV SCH (05:24)
[2021-04-11 05:35] VITALS: BP 168/84
[2021-04-11] MEDS: INSULIN LISPRO 300 UNITS/3 ML VIAL. SQ SCH ×4 (08:00→12:26)
[2021-04-11] MEDS: LACTOBACILLUS RHAMNOSUS GG 1 CAPSULE. PO SCH (08:31)
[2021-04-11] MEDS: CITALOPRAM 20 MG TABLET. PO SCH (08:31)
[2021-04-11] MEDS: PANTOPRAZOLE IV 40 MG VIAL. IVP SCH (08:32)
[2021-04-11] MEDS: hydrALAZINE 25 MG TABLET PO SCH ×2 (08:32→12:25)
[2021-04-11] MEDS: ENOXAPARIN 40 MG/0.4 ML SYRINGE. SQ SCH (08:32)
[2021-04-11] MEDS: IPRATROPIUM/ALBUTEROL 20/100mcg/INH INHALER. INH SCH ×2 (08:33→12:25)
[2021-04-11] MEDS: guaiFENesin DM 600/30MG 1 TAB TAB.ER.12H PO SCH (08:34)
[2021-04-11] MEDS: DEXAMETHASONE SOD PHOS 4 MG/ML VIAL. IVP SCH (08:34)
[2021-04-11] MEDS: INSULIN GLARGINE SYRINGE. SQ SCH (08:38)
[2021-04-11] MEDS: NYSTATIN TOPICAL POWDER 15GM BOTTLE. TP SCH (09:10)
[2021-04-11] MEDS: MORPHINE SULFATE 2 MG/ML DISP.SYRIN. IV PRN (10:45)
--- NOTE | 2021-04-11 10:54 | PN ---
SUBJECTIVE: A 50-year-old female came in with COVID-19 pneumonia, respiratory failure, is doing better on that regard. Also, she has hypertension, essential, but now is complaining of severe right hip pain. It radiates down into her leg, some lower back pain. After extensive questioning, she finally remembered that she had fallen at home some time ago. Anyway, she is having difficulty walking. I will get some x-rays on that. OBJECTIVE: VITAL SIGNS: Blood pressure 168/84, room air 96, respiratory rate 20, pulse 70, afebrile, overall improving throughout. GENERAL: The patient is making good progress. LUNGS: Diminished. There are just a few intermittent wheezing, but other than that, she shows marked improvement. NEUROLOGICAL: The patient is alert and oriented. CARDIOVASCULAR: The CVR exam is regular sinus rhythm. ABDOMEN: Protuberant, soft, nontender. EXTREMITIES: The patient does have tenderness to the right hip on extension and flexion of the hip, but we will get x-rays on that area and otherwise neurologically alert and oriented x3. Speech fluent, spontaneous, appropriate. IMPRESSION: Therefore, acute respiratory failure secondary to pneumonia of COVID-19, morbid obesity, type 2 diabetes, poorly controlled blood sugars, renal failure, stage 3A, severe protein malnutrition, severe hypokalemia, resolved, elevated liver enzymes, improved. PLAN: We will continue to taper down on her Decadron. Monitor her blood sugars and hopefully find out what is going on with this hip problem and then hopefully ready for discharge in 1 or 2 days at the most as well. She is doing with all her other medical issues. NAKUL DR: Jurgen TID: [id number]
[2021-04-11] MEDS: REMDESIVIR 100mg in NORMAL SALINE 250ML X 4 DAYS IV SCH (11:12)
[2021-04-11 11:29] VITALS: BP 169/93
[2021-04-11 12:25] VITALS: BP 169/93
[2021-04-11] MEDS ORDERED: MELA3TAB4 PO (14:16)
[2021-04-11] MEDS ORDERED: LACT1CAP19 PO (14:16)
[2021-04-11] MEDS ORDERED: DOXY50CA PO (14:16)
[2021-04-11] MEDS ORDERED: GUAI-108 PO (14:16)
[2021-04-11] MEDS ORDERED: PRED-220 PO (14:16)
[2021-04-11] MEDS ORDERED: BENZ-8 PO (14:16)
--- NOTE | 2021-04-11 14:57 | NUR ---
Discharge Note Patient stable with pain at a tolerable level. Patient oyxgen sats in upper 90s of room air, ambulates, and is independent on cares. Patient read all discharge instructions, questions answered in full. Patient wheeled out per JAZLYN Manning to car.
--- NOTE | 2021-04-11 15:24 | RAD ---
EXAM: AP pelvis, lateral view right hip DATE: 04/11/2021 9:30 AM INDICATION: Reason: severe pain down the right hip and thigh / Spl. Instructions: / History: . COMPARISON: No Prior FINDINGS: Right hip joint space narrowing superiorly. No acute fracture or dislocation. Moderate colonic stool content. IMPRESSION: No evidence of acute fracture or dislocation. Electronically signed by: Reinaldo Johnson MD (04/11/2021 3:21 PM) [id number]
--- NOTE | 2021-04-11 15:26 | RAD ---
EXAM: AP, lateral and lumbosacral spot views of the lumbar spine DATE: 04/11/2021 9:30 AM INDICATION: severe pain down the right hip and thigh COMPARISON: No Prior FINDINGS: 5 nonrib-bearing lumbar-type vertebral bodies. Vertebral body heights are preserved. Moderate L5-S1 d isc height loss. Straightening of the normal lumbar lordosis. No spondylolisthesis. Multilevel disc h eight loss. IMPRESSION: No acute fracture or subluxation. Multilevel degenerative changes as above. Electronically signed by: Reinaldo Johnson MD (04/11/2021 3:23 PM) [id number]
== END 2021-04-11 15:01 | disposition home health service (06) | DRG 871 ==
LOC: 1 SOUTH 22:09
PROVIDERS: ADMIT Family Medicine; ATTEND Family Medicine
PROC: XW033E5 Introduction of Remdesivir Anti-infective into Peripheral Vein, Percutaneous Approach, New Technology Group 5 (ICD-10-PCS; principal; 2021-04-07)
DX: A41.9 Sepsis, unspecified organism (principal); E43 Unspecified severe protein-calorie malnutrition; U07.1 COVID-19; J12.82 Pneumonia due to coronavirus disease 2019; J96.01 Acute respiratory failure with hypoxia; G93.41 Metabolic encephalopathy; I13.0 Hypertensive heart and chronic kidney disease with heart failure and stage 1 through stage 4 chronic kidney disease, or unspecified chronic kidney disease; J44.0 Chronic obstructive pulmonary disease with (acute) lower respiratory infection; E11.22 Type 2 diabetes mellitus with diabetic chronic kidney disease; E87.6 Hypokalemia; E78.00 Pure hypercholesterolemia, unspecified; E11.42 Type 2 diabetes mellitus with diabetic polyneuropathy; E66.01 Morbid (severe) obesity due to excess calories; I50.9 Heart failure, unspecified; N18.9 Chronic kidney disease, unspecified; E11.65 Type 2 diabetes mellitus with hyperglycemia; F10.10 Alcohol abuse, uncomplicated; K76.0 Fatty (change of) liver, not elsewhere classified; M48.00 Spinal stenosis, site unspecified; G47.30 Sleep apnea, unspecified; Z87.891 Personal history of nicotine dependence; Z86.73 Personal history of transient ischemic attack (TIA), and cerebral infarction without residual deficits; Z83.3 Family history of diabetes mellitus; Z82.49 Family history of ischemic heart disease and other diseases of the circulatory system; Z81.8 Family history of other mental and behavioral disorders; Z68.38 Body mass index [BMI] 38.0-38.9, adult
CPT/HCPCS: 36415; 71045; 71250; 72100; 73502; 74022; 74176; 80048; 80053; 80307; 81001; 82140; 82274; 82947; 83605; 83690; 85007; 85025; 87040; 93005; 94618; C9113; J0696; J1100; J1650; J1815; J1956; J2060; J2270; J2543; J3010; J7040; J7050; U0003; 97530; J7030

== ENCOUNTER 2021-06-19 02:46 | Emergency (ER) | payer OTHER ==
[~2021-06-19] VITALS: Ht 157.5 cm; Wt 105.9 kg
[~2021-06-19 02:46] MED LIST changes: +BENZ-8 PO; +DOXY50CA PO; -GABAPENTIN 300 MG CAPSULE. PO SCH; +GUAI-108 PO; +LACT1CAP19 PO; -LEVO500T8 PO; +LEVO500T9 PO; -LISI1TAB23 PO; +LISI1TAB35 PO; +MELA3TAB4 PO; +POTA-121 PO; -POTA20TA4 PO
[2021-06-19] MEDS ORDERED: HYDR-2155 PO (03:09)
--- NOTE | 2021-06-19 03:10 | PHYS DOC ---
Past History Past Medical History: Asthma, CHF, COPD, CVA, Diabetes, Hypertension Additional Past Medical Histor: neuropathy Past Surgical History: Tonsillectomy Alcohol Use: None Drug Use: None General Adult EDM: Chief Complaint: LOWER EXT PAIN HPI: HPI: 50-year-old female presents with 1 month history of bilateral lower extremity discomfort. Reports today left knee has been worse. Reports some increased swelling around left knee. Patient reports she is currently taking gabapentin for her neuropathy. Patient also reports some chronic swelling. Reports she did fall recently. Denies chest discomfort or shortness of air. Denies history of DVT or PE. Patient reports she has been taking allq-xat-byanvus ibuprofen and Tylenol for pain without significant improvement. Patient reports current pain that she was unable to bear tonight and therefore called the nurse hotline who instructed her to present to the ER for further evaluation. Review of Systems: Review of Systems: Constitutional: Denies fever or chills Eyes: Denies redness or eye pain HENT: Denies nasal congestion or sore throat Respiratory: Denies cough or shortness of breath Cardiovascular: Denies chest pain or palpitations GI: Denies abdominal pain, nausea, or vomiting : Denies dysuria or hematuria Musculoskeletal: Reports bilateral lower extremity edema and throbbing discomfort; reports left knee pain and swelling Integument: Denies rash; reports mild redness to top of left foot Neurologic: Denies headache, focal weakness or sensory changes Complete systems were reviewed and found to be within normal limits, except as documented in this note. Allergies: Allergies: Allergies Coded Allergies Type Severity Reaction Last Updated Verified No Known Allergies Allergy Unknown 10/25/19 Yes Physical Exam: PE: Constitutional: Well developed, obese, tearful, non-toxic appearance HENT: Normocephalic, atraumatic Eyes: Conjunctiva normal, no discharge Neck: Normal range of motion, no tenderness, supple Lungs & Thorax: No respiratory distress, equal chest rise and fall Skin: Warm, dry, mild erythema to dorsum of left foot, no rash Extremities: Left knee tenderness, ROM intact, 2+ nonpitting edema Neurologic: Alert and oriented X 3, no focal deficits noted Psychologic: Affect normal, judgment normal EKG: EKG: [] Radiology/Procedures: Radiology/Procedures: [] Heart Score: C/O Chest Pain: N/A Course & Med Decision Making: Course & Med Decision Making Pertinent Imaging studies reviewed. (See chart for details) Patient presents with lower extremity discomfort primarily to left knee. Patient does report fall recently. Patient does have some peripheral edema without calf tenderness. History of neuropathy. Pain addressed. X-ray obtain ed of left knee without acute process. Patient does have some very mild erythema to dorsum of left foot which appears more consistent with irritation from swelling and being in shoes. Does not appear to be cellulitic in nature. Patient is afebrile. Sats stable. Symptomatic treatment provided. Donte wrap applied for support of left knee. Patient advised to purchase ukys-etc-anqxnoj compression socks to help with peripheral edema. Patient stable for discharge with outpatient follow-up with PCP/orthopedic surgeon. Orthopedic surgeon referral provided. Discussed findings and plan with patient, who acknowledges understanding and agreement. Nidia Disclaimer: Nidia Disclaimer: This electronic medical record was generated, in whole or in part, using a voice recognition dictation system. Departure Departure: Impression: Primary Impression: Peripheral edema Additional Impression: Arthritis of left knee Disposition: HOME / SELF CARE / HOMELESS Condition: STABLE Referrals: ANGELIQUE PETERSON MD (PCP) NATO SHAW MD Patient Instructions: Arthritis, Nonspecific, Ulta-fo-Ncfq, Knee Pain, Sozd-gm-Pxwe, Knee Wraps (Elastic Bandage) and RICE, Pain, Neuropathic, Periphe ral Edema Additional Instructions: Ice area of discomfort 20 minutes on then leave off next 20 minutes. Repeat several times daily for the next 2 days. Take previously prescribed gabapentin as directed. Purchase yohf-rum-rzzkzkh compression socks on [employer] or local retailer/drugstore. May also elevate legs to help with swelling. May continue uvpu-hjv-bnyokeb ibuprofen or naproxen as needed for pain. Scripts Hydrocodone Bit/Acetaminophen (HYDROCODONE-APAP 5-325 ) 1 Each Tablet 0.5-1 TAB PO PRN Q6HRS PRN for PAIN, #14 TAB 0 Refills Prov: MILADYS COOL DO 06/19/21 MILADYS COOL DO Jun 19, 2021 03:10
[2021-06-19 03:17] VITALS: BP 104/73
[2021-06-19] MEDS ORDERED: IBUPROFEN 600 MG TABLET. PO ONE (03:30)
[2021-06-19] MEDS ORDERED: HYDROcodone/APAP 5/325MG 1 TAB TABLET PO ONE (03:30)
--- NOTE | 2021-06-19 07:49 | RAD ---
Site ID: [id number] EXAMINATION: XR KNEE _3 VIEWS_LT. HISTORY: 50 years Female Reason: pain and swelling COMPARISON: None. FINDINGS: No fracture, dislocation or radiopaque foreign body. The joint spaces and articular surfaces appea r unremarkable. IMPRESSION: Unremarkable exam. Electronically signed by: Travis Cheney MD (06/19/2021 7:46 AM) [id number]
== END 2021-06-19 04:00 | disposition home or self-care (01) ==
LOC: ER 02:46
DX: M17.12 Unilateral primary osteoarthritis, left knee (principal); R60.0 Localized edema; I11.0 Hypertensive heart disease with heart failure; I50.9 Heart failure, unspecified; J44.9 Chronic obstructive pulmonary disease, unspecified; E11.40 Type 2 diabetes mellitus with diabetic neuropathy, unspecified; Z86.73 Personal history of transient ischemic attack (TIA), and cerebral infarction without residual deficits
CPT/HCPCS: 73562; 99283